=== PATIENT | female | born 1950 | race Caucasian/White ===

== ENCOUNTER 2018-11-10 11:10 | Outpatient (CLI) | payer MEDICARE, MEDICAID, SELFPAY ==
--- NOTE | 2018-11-10 06:00 | DI.RAD_ITS ---
EXAM: XR PAIN CLINIC LUMBAR SP 2V CLINICAL HISTORY: Lumbar Epidural Steroid Injection TECHNIQUE: 2D and realtime digital imaging was performed. COMPARISON: No exams were available for comparison FINDINGS: Images submitted from the pain clinic demonstrate needle positioning over the lower lumbar spine and proximal sacrum in connection with an epidural steroid injection. Please see Dr. Christopher's procedure rep ort for further information. IMPRESSION:
[2018-11-10 12:14] VITALS: BP 106/75; PULSE 69; RESP 20; TEMP 36.7; O2SAT 98
--- NOTE | 2018-11-10 12:48 | PDOC.PAIN_ITS ---
Pain Clinic Procedure Note Procedure Note Procedure Note: CAUDAL EPIDURAL STEROID WITH CATHETER INJECTION PROCEDURE NOTE COMMENTS: I did rev iew Ms. Hernandez's note and the most recent lumbar spine MRI . DX: Lumboscaral radiculopathy TONI BELLA has been referred to the [facility] for lumbar epidural steroid injection. Patient was greeted by the nurse who verified patients name and . Patient was then taken to the fluoroscopy suite. Patient was interviewed and the medical record reviewed. There were no medical, pharmacologic, radiographic, or other structural contraindications to attempting fluoroscopically guided lumbar epidural steroid injection. Risks and expected side effects as well as potential benefits of the procedure were reviewed and voiced concerns addressed. The patient consent form was signed and witnessed. Standard time-out procedure was performed. Patient was placed in the prone position on the fluoroscopy table and automated blood pressure cuff and pulse oximeter applied. The skin entry point for entering/approaching the epidural space at the sacral hiatus marked. Following thorough chlorhexadine preparation of the skin and draping and 1% lidocaine infiltration of the skin entry point and subcutaneous tissues, a 17 gauge Touhy needle was placed under fluoroscopic guidance and with loss of resistance technique into the epidural space. Needle tip placement and depth were aided and confirmed by fluoroscopy. There was no paresthesia or return of blood or CSF through the needle. An Arrow cath was thread to the L4 vertebral body and 1 cc's of Omnipaque 240 was injected with clear epidural spread confirmed with fluoroscopy. 80mg depomedrol was injected. There was not any unusual discomfort expressed. Vital signs were stable throughout the procedure and were as recorded in nursing records. Follow up plans and appointments were discussed.Post procedure instruction was given as documented in nursing records and having met discharge criteria and was discharged from the [facility]. COMMENTS: This procedure can be completed up to 3 times per 12 months if it is found to be effective.
[2018-11-10 12:55] VITALS: BP 141/82; PULSE 72; RESP 16; O2SAT 97
[2018-11-10] MEDS: Omnipaque 240 MG/ML 50 ML BTL IJ (12:56)
[2018-11-10] MEDS: methylPREDNISolone ACETATE 40 MG/ML VIAL IJ (12:56)
== END 2018-11-10 11:30 ==
PROVIDERS: PCP Family Medicine; Visit Provider Preventive Medicine Occupational Medicine
DX: M54.17 Radiculopathy, lumbosacral region (principal)
CPT/HCPCS: 62323; 72100; J1030; Q9967

== ENCOUNTER 2018-11-30 14:52 | Outpatient (CLI) | payer MEDICARE, MEDICAID, SELFPAY ==
--- NOTE | 2018-11-30 15:00 | DI.RAD_ITS ---
EXAM: XR CERVICAL SPINE COMP 4-5V INDICATION: neck pain, recent injury from overhead door,r/o Fx, M54.2 CERVICALGIA. COMPARISON: No exams were available for comparison TECHNIQUE: 2D digital imaging was performed. FINDINGS: Seven views were obtained. There are very prominent hypertrophic degenerative endplate changes at C4 -5 C5-6 and C6-7. Marked facet hypertrophic degenerative changes noted as well. Neural foramina ceci ear fairly well maintained as visualized. . IMPRESSION: Conclusion severe hypertrophic degenerative changes of predominantly lower cervical spine. No evidenc e of acute fracture
== END 2018-11-30 15:12 ==
PROVIDERS: PCP Family Medicine; Visit Provider Nurse Practitioner Family
DX: M54.2 Cervicalgia (principal); M50.321 Other cervical disc degeneration at C4-C5 level; M50.322 Other cervical disc degeneration at C5-C6 level
CPT/HCPCS: 72050

== ENCOUNTER 2019-01-12 09:33 | Outpatient (CLI) | payer MEDICARE, MEDICAID, SELFPAY ==
--- NOTE | 2019-01-12 06:00 | DI.RAD_ITS ---
EXAM: XR PAIN CLINIC CERVICAL SP 2V CLINICAL HISTORY: Dx: Cervical Spondylosis. TECHNIQUE: Fluoroscopy was provided for the referring physician for guidance with performing injecti on procedure. COMPARISON: No exams were available for comparison FINDINGS: Please see procedure note for details. FLUORO TIME: 102.5 seconds
[2019-01-12 10:46] VITALS: BP 127/72; PULSE 72; RESP 20; TEMP 36.9; O2SAT 97
--- NOTE | 2019-01-12 12:17 | PDOC.PAIN ---
Pain Clinic Procedure Note Procedure Note Procedure Note: CERVICAL MEDIAL BRANCH BLOCKS TONI BELLA has been referred to the [facility] for cervical medial branch blocks. COMMENTS: Ms Bella has left sided posterior headache and scalp sensitivity and pain down left side of her neck extending to her trapezius Patient was interviewed and the medical record reviewed. There were no medical, pharmacologic, radiographic or other structural contraindications to attempting fluoroscopically guided local anesthetic cervical medial branch blocks. Risks and expected side effects as well as potential benefit of the procedure were reviewed and voiced concerns addressed. The printed consent form was signed and witnessed. Standard time-out procedure was performed. Patient was placed in the left lateral decubitus position on the fluoroscopy table and automated blood pressure cuff and pulse oximeter applied. however, patient was not comfortable in this position and multiple planes of fluoroscopic images were taken without optimization of articular pillar. then patient was repositioned into prone position. left TON, C3, C4, C5 were identified with fluoroscopy and marked. Following thorough Chlorhexadine preparation of the skin and draping and 1% lidocaine infiltration of the skin entry points and subcutaneous tissues, a 25 gauge 3.5'' spinal needle was placed under fluoroscopic guidance down on to the target point for each respective segmental medial branch. Position was confirmed in A/P and lateral views with 0.25ml of omnipaque 240 injected at each level. This revealed appropriate spread and no vascular uptake. At each point 0.25ml 0.5% bupivicaine was injected. Vital signs were stable throughout the procedure and were as recorded in the doc flowsheet by the nursing staff. Follow up plans and appointments were discussed and patient was instructed to keep careful note of how the usual pain was modified by these injections. Specifically, the patient was asked to keep a pain diary for the next 24 hours using a numeric pain scale of 0-10 and report these results at the follow-up visit. Post procedure instruction was given as documented in the nursing documentation and having met discharge criteria, and was discharged from the [facility]. Based on the medial branches blocked today, if they patient has adequate relief and we are able to proceed to radiofrequency ablation, the treatment should result in the denervation of the left C2-3, C3-4, C4-5. We would expect to denervate a total of 3 facets during the radiofrequency ablation. COMMENTS: pre-procedure pain level was reported as 10 out of 10. Post-procedure pain level 3 out of 10. given patient's body habitus and difficult to visualize target on lateral decubitus position, would prefer prone position for future blocks and radiofrequency ablation Candie Drake MD Pain Management CC: Servando Young
[2019-01-12 12:27] VITALS: BP 146/93; PULSE 67; RESP 16; O2SAT 96
[2019-01-12] MEDS: Omnipaque 240 MG/ML 50 ML BTL IJ (12:28)
[2019-01-12] MEDS: Bupivacaine 0.5% Pres-Free 10 ML VIAL IJ (12:29)
== END 2019-01-12 09:53 ==
PROVIDERS: PCP Family Medicine; Visit Provider Internal Medicine
DX: M47.812 Spondylosis without myelopathy or radiculopathy, cervical region (principal)
CPT/HCPCS: 64490; 64491; 72040; Q9967

== ENCOUNTER 2019-04-13 08:17 | Outpatient (CLI) | payer MEDICARE, BC, MEDICAID, SELFPAY ==
[2019-04-13 08:23] VITALS: BP 119/79; PULSE 79; RESP 20; TEMP 36.5; O2SAT 99
--- NOTE | 2019-04-13 09:33 | DI.RAD_ITS ---
EXAM: XR PAIN CLINIC CERVICAL SP 2V CLINICAL HISTORY: Dx: Cervical spondylosis TECHNIQUE: Realtime digital imaging was performed. Fluoro time: 54.9 sec, 8.30 mGy COMPARISON: No exams were available for comparison FINDINGS: Fluoroscopy was utilized by Dr. Drake during the performance of a cervical medial branch block. Please refer to the procedure report for complete details.
[2019-04-13 09:36] VITALS: BP 134/84; PULSE 75; RESP 19; O2SAT 99
[2019-04-13] MEDS: Omnipaque 240 MG/ML 50 ML BTL IJ (09:53)
[2019-04-13] MEDS: Lidocaine 2% Pres-Free 5 ML VIAL IJ (09:53)
--- NOTE | 2019-04-13 09:54 | PDOC.PAIN ---
Pain Clinic Procedure Note Procedure Note Procedure Note: CERVICAL MEDIAL BRANCH BLOCKS TONI BELLA has been referred to the [facility] for cervical medial branch blocks. pre-operative diagnosis: cervical spondylosis post-operative diagnosis: same as above COMMENTS: patient is here for confirmatory left sided cervical medial branch nerve block. Her last procedure was cancelled due to vaginal bleeding. Patient was interviewed and the medical record reviewed. There were no medical, pharmacologic, radiographic or other structural contraindications to attempting fluoroscopically guided local anesthetic cervical medial branch blocks. Risks and expected side effects as well as potential benefit of the procedure were reviewed and voiced concerns addressed. The printed consent form was signed and witnessed. Standard time-out procedure was performed. Patient was placed in the prone position on the fluoroscopy table and automated blood pressure cuff and pulse oximeter applied. The skin entry points for approaching the anatomic target points of the segmental medial branches of left TON, C3, C4, C5 were identified with fluoroscopy and marked. Following thorough Chlorhexadine preparation of the skin and draping and 1% lidocaine infiltration of the skin entry points and subcutaneous tissues, a 25 gauge spinal needle was placed under fluoroscopic guidance down on to the target point for each respective segmental medial branch. Position was confirmed in A/P and leteral views with 0.25ml of omnipaque 240 injected at each level. This revealed appropriate spread and no vascular uptake. At each point 0.3ml 2% lidocaine was injected. Vital signs were stable throughout the procedure and were as recorded in the docflowsheet by the nursing staff. Follow up plans and appointments were discussed and patient was instructed to keep careful note of how the usual pain was modified by these injections. Specifically, the patient was asked to keep a pain diary for the next 24 hours using a numeric pain scale of 0-10 and report these results at the follow-up visit. Post procedure instruction was given as documented in the nursing documentation and having met discharge criteria, and was discharged from the [facility]. Based on the medial branches blocked today, if they patient has adequate relief and we are able to proceed to radiofrequency ablation, the treatment should result in the denervation of the left C2-3, C3-4, C4-5. We would expect to denervate a total of 3 facets during the radiofrequency ablation. COMMENTS: patient tolerated procedure well. she reported mild nausea immediatley after procedure was completed, her vital signs were monitored and remained stable. patient reported the prone positioning was putting too much pressure on her abdomen and she felt some baseline right flank pain which caused her to be nauseous. She denies dizziness, headache, lightheadedness. Her symptoms resolved without intervention. Candie Drake MD Pain Management CC: Servando Young
== END 2019-04-13 08:37 ==
PROVIDERS: PCP Family Medicine; Visit Provider Internal Medicine
DX: M47.812 Spondylosis without myelopathy or radiculopathy, cervical region (principal)
CPT/HCPCS: 64490; 64491; 64492; 72040; Q9967

== ENCOUNTER 2020-01-22 00:32 | Emergency (ER) | payer MEDICARE, MEDICAID, SELFPAY ==
[2020-01-22 00:35] VITALS: BP 154/73; PULSE 70; RESP 20; TEMP 36.7; O2SAT 100
--- NOTE | 2020-01-22 00:45 | RT.EKG_ITS ---
APPROVED REPORT Exam: Resting ECG Patient Location: E HR:57 bpm ECG Measurements Heart Rate 57 AXIS [place] 59 P 0 QRSd 95 QRS 0 QT 492 T 30 QTc 482 Conclusion Sinus bradycardia...rate< 60 Low voltage, precordial leads...precordial leads <1.0mV Nonspecific ST-T changes Normal [place] No STEMI
--- NOTE | 2020-01-22 00:46 | ED.GENADUL_ITS ---
Discharge Plan Disposition Patient Disposition: HOME Condition: Good Discharge Details Clinical Impression: Vomiting, Syncope, Hypomagnesemia Primary Care Provider: Servando Young ED Provider: Jw Craig Home Meds and New Rx's Prescriptions: Continued albuterol sulfate [Ventolin HFA] 90 mcg/actuation HFA aerosol inhaler 2 puff IH Q6H PRNRF: 0 Biofreeze aerosol 1 ea topical PRN PRNRF: 0 omeprazole 20 mg tablet,delayed release (DR/EC) 20 mg PO DAILY RF: 0 fluticasone propion-salmeterol [Advair Diskus] 250-50 mcg/dose blister with device 1 inh IH BID RF: 0 erythromycin 5 mg/gram (0.5 %) ointment 1 applic OP DAILY RF: 0 ketoconazole 2 % cream 1 applic TP BID RF: 0 fluticasone propionate [Flonase Allergy Relief] 50 mcg/actuation spray,suspension 1 spray DAINA DAILY RF: 0 Lantus U-100 Insulin 100 unit/mL solution 35 unit SC DAILY RF: 0 amlodipine [Norvasc] 5 mg tablet 5 mg PO DAILY RF: 0 zinc oxide-white petrolatum 15-49 % ointment 1 applic TP BID PRNRF: 0 simvastatin 40 MG tablet 40 mg PO DAILY RF: 0 metformin 1,000 MG tablet 1,000 mg PO BID RF: 0 nitroglycerin [Nitrostat] 0.4 MG tablet, sublingual 0.4 mg Sublingual PRN RF: 0 aspirin 81 MG tablet,chewable 81 mg PO DAILY RF: 0 nystatin [Nystop] 60 GM powder 60 gm Topical BID RF: 0 Centrum Silver 1 EACH tablet 1 ea PO DAILY RF: 0 vitamin E succinate 100 UNIT tablet 100 unit PO DAILY RF: 0 Metoprolol Succinate [Toprol Xl] 50 MG TAB.ER.24H 50 mg PO DAILY RF: 0 sertraline 100 MG tablet 200 mg PO DAILY RF: 0 acetaminophen 325 mg tablet 650 mg PO Q4H PRNRF: 0 tramadol 50 mg tablet 50 mg PO Q6H PRNRF: 0 tizanidine 2 mg capsule 2 mg PO Q8H PRNRF: 0 bupropion HCl 150 mg tablet extended release 24 hr 150 mg PO BID RF: 0 duloxetine [Cymbalta] 30 mg Capsule,Delayed Release(Dr/Ec) 30 mg PO RF: 0 pregabalin [Lyrica] 100 mg Capsule 100 RF: 0 Discharge Instructions Instructions: Syncope (ED), Hypomagnesemia (ED) Additional Instructions: I feels no syncope was related to your dry heaving and inability to catch her breath. Your EKG looks fine. Laboratory studies look fine other than magnesium which is likely low due to the diarrhea you had previously. CT scan of her abdomen shows no acute pathology. You may use the Zofran for recurrent nausea/vomiting. Stick with clear liquid bland diet for the rest of the weekend. Follow-up with primary care next week if not better. Return to ED for abdominal pain, chest pain, persistent vomiting, further syncope, difficulty breathing. Referrals: Servando Young [Primary Care Provider] - Medical Decision Making Patient presenting because of syncopal event that occurred tonight urine after dry heaving and having difficulty catching her breath. She has since recovered and after vomiting for EMS a few times feels much better. Her vital signs of good here. If anything she is hypertensive. Does not sound like orthostasis or dehydration but more likely related to a cough syncope type variant. Currently no shortness of breath and normal pulse ox. Bili appears to be benign. She has had multiple surgeries in the past. We will proceed with establishing IV and giving some fluids. Check laboratory studies, EKG, abdominal pelvic CT scan. Zofran for residual nausea. Patient's laboratory studies unremarkable other than anemia which actually has been present since 2010 as well as low magnesium at 1.3 likely related to the diarrhea she had. She received IV magnesium here. Other electrolytes and kidney function normal. White count normal. 2 sets of troponin negative. EKG is sinus bradycardia with nonspecific ST flattening but nothing acute. She has had no arrhythmias here. CT scan of the abdomen pelvis shows no acute pathology. Patient has been fine here. She has had no feeling of shortness of breath. The IV Zofran made her nausea better. Again, I think her syncope was related to dry heaving and not being able to catch her breath. It was described as short- lived. I do not feel she requires admission at this time. Will discharge her home with a few Zofran if needed. Otherwise clear liquid/bland diet. Follow-up with primary care next week if not better. Return to ED for further syncope, chest pain, persistent shortness of breath, vomiting. Lab Data Lab results reviewed: Yes I reviewed the patient's lab results. ECG Data Attestation: I personally reviewed and interpreted this ECG (s) as follows: Interpretation: see EKG HPI General Mode of arrival: EMS . Date/Time Provider Initiated Documentation: 01/22/20 00:39 . Limitations to Documentation: no limitations . Information obtained by: patient, RN notes reviewed and old records reviewed . HPI Narrative: Patient presents to ED with syncopal event from home. Patient reports diarrhea earlier this week which has subsequently resolved. Today she is had emesis and has not really been able to keep a whole lot down. She has a little bit of abdominal discomfort but nothing horrible. She had gone to bed and woke up dry heaving and gas pain severe. Family heard her and came in. She apparently flopped back into bed with a brief syncopal event. When EMS arrived she was awake and alert lying on the floor. There was no trauma or injury from the fall. She has had 2 or 3 episodes of emesis for EMS. She denies having chest pain. She is not short of breath currently. She denies fever. She denies cough. She has had no Covid exposure. She states that she feels pretty good right now. Related Data Home Medications Medication Instructions Recorded Confirmed Centrum Silver 1 ea PO DAILY 03/03/17 01/22/20 Metoprolol Succinate [Toprol Xl] 50 mg PO DAILY tab-cap 03/03/17 01/22/20 aspirin 81 mg PO DAILY tab-cap 03/03/17 01/22/20 metformin 1,000 mg PO BID tab-cap 03/03/17 01/22/20 nitroglycerin [Nitrostat] 0.4 mg SUBLINGUAL PRN 03/03/17 01/22/20 nystatin [Nystop] 60 gm TOPICAL BID 03/03/17 01/22/20 simvastatin 40 mg PO DAILY tab-cap 03/03/17 01/22/20 vitamin E succinate 100 unit PO DAILY 03/03/17 01/22/20 sertraline 200 mg PO DAILY tab-cap 03/05/17 01/22/20 Biofreeze 1 ea TOPICAL PRN PRN 04/23/18 01/22/20 acetaminophen 325 mg tablet 650 mg PO Q4H PRN tab-cap 04/23/18 01/22/20 albuterol sulfate 90 mcg/actuation 2 puff IH Q6H PRN gm 04/23/18 01/22/20 aerosol inhaler bupropion HCl 150 mg 24 hr tablet, 150 mg PO BID tab 04/23/18 01/22/20 extended release omeprazole 20 mg tablet,delayed 20 mg PO DAILY 04/23/18 01/22/20 release tizanidine 2 mg capsule 2 mg PO Q8H PRN cap 04/23/18 01/22/20 tramadol 50 mg tablet 50 mg PO Q6H PRN tab-cap 04/23/18 01/22/20 amlodipine 5 mg tablet 5 mg PO DAILY 09/02/18 01/22/20 erythromycin 5 mg/gram (0.5 %) eye 1 applic OP DAILY 09/02/18 01/22/20 ointment fluticasone 250 mcg-salmeterol 50 1 inh IH BID 09/02/18 01/22/20 mcg/dose blistr powdr for inhalation fluticasone propionate 50 1 spray DAINA DAILY 09/02/18 01/22/20 mcg/actuation nasal spray,suspension insulin glargine 100 unit/mL 35 unit SC DAILY ml 09/02/18 01/22/20 subcutaneous solution ketoconazole 2 % topical cream 1 applic TP BID 09/02/18 01/22/20 zinc oxide-white petrolatum 15 1 applic TP BID PRN 09/02/18 01/22/20 %-49 % topical ointment duloxetine [Cymbalta] 30 mg PO 01/22/20 pregabalin [Lyrica] 100 01/22/20 Allergies Allergy/AdvReac Type Severity Reaction Status Date / Time adhesive tape Allergy Intermediate RASH Unverified 04/13/19 08:23 Sulfa (Sulfonamide Allergy Mild Skin Rash Unverified 04/13/19 08:23 Antibiotics) aspirin AdvReac Intermediate Nausea Unverified 04/13/19 08:23 General Stated Complaint: Nausea/Vomit/Diar REGAN: 3 Review of Systems Narrative: 12/07 Review of Systems completed and is negative except as stated above in HPI (Systems reviewed: Const, Eyes, ENT, Resp, CV, GI, , MSK, Skin, Neuro) PFSH Medical History Anxiety Asthma Breast cancer CAD (coronary artery disease) Cataract Chronic pain Colonic polyp Constipation Depression Diabetes Hemorrhoid HTN (hypertension) Hypercholesterolemia Obesity Prurigo nodularis Sigmoid diverticulosis Surgical History Abdominal hysterectomy Appendectomy Bilateral salpingectomy with oophorectomy Biopsy of breast Cholecystectomy Colonoscopy - MAC Extraction of cataract PORT PLACEMENT port removal Tonsillectomy and adenoidectomy Family History Mother No problems noted. Father Diabetes Sister No problems noted. Sister No problems noted. Sister No problems noted. Brother No problems noted. Brother No problems noted. Son No problems noted. Son No problems noted. Daughter No problems noted. Daughter No problems noted. Maternal Aunt Ovarian cancer Social History Smoking/Tobacco Use Status: Former Tobacco Use Smoking risk assessment performed?: Yes Alcohol Intake: never Drug use: Never Substance use type: does not use Do you feel safe at home: Yes Do you feel safe in your relationship?: Yes Exam Narrative Exam Narrative: Const: Obese elderly female in NAD. HEENT: NC/AT. Normal facial exam. Eyes: Normal conjunctiva and sclera. Neck: Supple. Trachea midline. Lungs: Normal respiratory effort. Lungs are clear. Cor: RRR without murmur/gallop. Good radial pulses. GI: Soft. NT/ND. No guarding or rebound. Neuro: A+O x 3. Normal speech, mentation. Cranial nerves II - XII grossly intact. No gross motor or sensory deficit. Ext: Some bilateral lower extremity edema. No calf tenderness. Skin: Warm and dry without rash. Course Vital Signs Vital signs: Oxygen Delivery Method Room Air 01/22/20 00:35 Oxygen Flow Rate 0 01/22/20 00:35
--- NOTE | 2020-01-22 01:00 | DI.CT_ITS ---
EXAM: CT ABDOMEN PELVIS W INDICATION: vomiting/abd pain. COMPARISON: No exams were available for comparison TECHNIQUE: FINDINGS: CT examination of the abdomen and pelvis was performed with a bolus infusion of 125 cc of Omnipaque 3 50. Images obtained through the lung bases are unremarkable. The liver is unremarkable in appearance. Gallbladder has been surgically removed. No biliary dilatation seen.. Pancreas appears normal. Spleen is unremarkable in appearance. Adrenals appear normal. The kidneys are unremarkable with no evidence of hydronephrosis, nephrolithiasis, or renal mass.. Ur inary bladder unremarkable. Abdominal aorta is of normal diameter and no major vascular abnormality is seen. No abdominal wall hernia. No abdominal or pelvic adenopathy. Uterus is atrophic or absent. Appendix is not specifically visualized but there is no evidence of appendicitis. No evidence of div erticulitis or bowel obstruction. IMPRESSION: Negative CT examination of the abdomen and pelvis. RADIATION DOSE DELIVERED: 1,725.37mGy.cm Total DLP 1,725.37mGy.cm Total DLP
[2020-01-22 01:41] LABS: Abs Immature Grans 0.02 10^3/uL (0.0-0.06); Absolute Basophil Count 0.04 10^3/uL (0.0-0.2); Absolute Eosinophil Count 0.12 10^3/uL (0.0-0.7); Absolute Lymphocyte Count 2.61 10^3/uL (1.2-3.4); Absolute Monocyte Count 0.45 10^3/uL (0.1-0.8); Basophils % 0.6; Eosinophils % 1.8; HCT 33.5 % (36.0-46.0); HGB 10.6 g/dL (11.2-15.7); Immature Grans % 0.3; Lymphocytes % 39.9; MCH 28.6 pg (27.0-33.0); MCHC 31.6 % (32.0-36.0); MCV 90.5 fL (80-95); MPV 10.9 fL (8.0-11.0); Monocytes % 6.9; Neutrophils % 50.5; Nucleated RBC 0 %; Platelet Count 149 10^3/uL (130-400); RDW-SD 46.5 fL; WBC 6.54 10^3/uL (4.4-10.8)
[2020-01-22 02:17] LABS: ALT 18 U/L (14-59); AST 18 U/L (15-37); Alkaline Phosphatase 73 U/L (46-116); Anion Gap 13.7 mmol/L (3-11); BUN 18 mg/dL (7-18); Bilirubin, Total 0.3 mg/dL (0.2-1.0); CO2 28.3 mmol/L (21.0-32.0); Calcium 9.7 mg/dL (8.5-10.1); Estimated GFR 54.81 (mL/min/1.73m2); Glucose 181 mg/dL (74-106); Lipase 84 U/L (73-393); Magnesium 1.3 mg/dL (1.8-2.4)
[2020-01-22 02:18] LABS: Troponin I < 0.05 ng/mL (<0.06)
[2020-01-22 02:37] LABS: Chloride 103 mmol/L (98-107); Potassium 3.7 mmol/L (3.5-5.1); Sodium 139 mmol/L (136-145)
[2020-01-22] MEDS: Normal Saline Flush 10 ML SYR IVP (03:29)
[2020-01-22] MEDS: Omnipaque 350 MG/ML 50 ML BTL IJ (03:30)
[2020-01-22] MEDS: Normal Saline - Diluent 50 ML VIAL IV (03:30)
[2020-01-22] MEDS: Omnipaque 350 MG/ML 100 ML BTL IJ (03:31)
[2020-01-22] MEDS: MAGNESIUM SULFATE 2 GM/50 ML BAG IVPB (03:33)
--- NOTE | 2020-01-22 03:41 | DI.VRAD_ITS ---
PROCEDURE INFORMATION: Exam: CT Abdomen And Pelvis With Contrast Exam date and time: 01/22/2020 1:04 AM Age: 69 years old Clinical indication: Abdominal pain; Generalized; Prior surgery; Surgery type: ? Cyst/polyp TECHNIQUE: Imaging protocol: Computed tomography of the abdomen and pelvis with intravenous contrast. Radiation optimization: All CT scans at this facility use at least one of these dose optimization techniques: automated exposure control; mA and/or kV adjustment per patient size (includes targeted exams where dose is matched to clinical indication); or iterative reconstruction. Contrast material: [id number]; Contrast volume: 125 ml; Contrast route: INTRAVENOUS (IV); COMPARISON: No relevant prior studies available. FINDINGS: Liver: Normal. No mass. Gallbladder and bile ducts: Status post cholecystectomy. Pancreas: Normal. No ductal dilation. Spleen: Normal. No splenomegaly. Adrenal glands: Normal. No mass. Kidneys and ureters: Normal. No hydronephrosis. Stomach and bowel: Unremarkable. No obstruction. No mucosal thickening. Appendix: No evidence of appendicitis. Intraperitoneal space: Unremarkable. No free air. No significant fluid collection. Vasculature: Unremarkable. No abdominal aortic aneurysm. Lymph nodes: Unremarkable. No enlarged lymph nodes. Urinary bladder: Unremarkable as visualized. Reproductive: Status post hysterectomy. Bones/joints: Unremarkable. No acute fracture. Soft tissues: Unremarkable. IMPRESSION: No acute finding. Dictated and Authenticated by: Gualberto Molina MD. Ordering:MIGUEL Escalera MD
--- NOTE | 2020-01-22 04:45 | RT.EKG_ITS ---
APPROVED REPORT Exam: Resting ECG Patient Location: E HR:56 bpm ECG Measurements Heart Rate 56 AXIS AR 174 P -31 QRSd 92 QRS 2 QT 463 T 33 QTc 447 Conclusion Sinus bradycardia...rate< 60 Low voltage, precordial leads...precordial leads <1.0mV There are no significant changes compared to prior EKG performed on 01/22/2020 at 01:52.
[2020-01-22 05:26] LABS: Troponin I < 0.05 ng/mL (<0.06)
== END 2020-01-22 07:13 | disposition home or self-care (01) ==
PROVIDERS: Emergency Provider Emergency Medicine; PCP Family Medicine
DX: E83.42 Hypomagnesemia (principal); R55 Syncope and collapse; R11.2 Nausea with vomiting, unspecified; E11.9 Type 2 diabetes mellitus without complications; Z79.4 Long term (current) use of insulin; I10 Essential (primary) hypertension
CPT/HCPCS: 36415; 80053; 83690; 93005; 96365; 96366; 99285; 74177; 83735; 84484; 85025; 93010; J3490; Q9967

== ENCOUNTER 2020-11-05 20:02 | Observation (INO) | payer MEDICARE, MEDICAID, SELFPAY ==
[2020-11-05] VITALS (39 sets, daily range): BP systolic 115–146; BP diastolic 65–82; PULSE 59–79; RESP 13–25; TEMP 36.6; O2SAT 93–99
--- NOTE | 2020-11-05 19:45 | RT.EKG_ITS ---
APPROVED REPORT Exam: Resting ECG Reason for Exam: syncope Patient Location: E HR:70 bpm ECG Measurements Heart Rate 70 AXIS [place] 167 P 49 QRSd 86 QRS 4 QT 418 T 51 QTc 451 Conclusion Sinus rhythm...normal P axis, V-rate 60- 99 Low voltage, precordial leads...precordial leads <1.0mV Physician: no stemi
[2020-11-05 20:13] LABS: Abs Immature Grans 0.02 10^3/uL (0.0-0.06); Absolute Basophil Count 0.04 10^3/uL (0.0-0.2); Absolute Eosinophil Count 0.19 10^3/uL (0.0-0.7); Absolute Lymphocyte Count 2.68 10^3/uL (1.2-3.4); Absolute Monocyte Count 0.52 10^3/uL (0.1-0.8); Absolute Neutrophil Count 2.79 10^3/uL (1.2-6.7); Basophils % 0.6; HCT 33.3 % (36.0-46.0); HGB 10.6 g/dL (11.2-15.7); Immature Grans % 0.3; Lymphocytes % 42.9; MCH 28.3 pg (27.0-33.0); MCHC 31.8 % (32.0-36.0); MCV 88.8 fL (80-95); Monocytes % 8.3; Neutrophils % 44.9; Nucleated RBC 0 %; Platelet Count 176 10^3/uL (130-400); RBC 3.75 10^6/uL (3.93-5.22); RDW 14.2 % (11.7-14.6); RDW-SD 45.6 fL; WBC 6.24 10^3/uL (4.4-10.8)
--- NOTE | 2020-11-05 20:30 | DI.CT_ITS ---
Exam(s) CT CHEST PE CTA EXAM: CT CHEST PE CTA CLINICAL HISTORY: shortness of breath, chest pain. TECHNIQUE: Imaging Protocol: Axial CT angiography was performed with multi-slice acquisition and mu lti-planar and/or 3D reconstructions. CONTRAST MATERIAL: Intravenous: Omnipaque 350 Contrast volume:100 COMPARISON: CT CT ABDOMEN PELVIS W from 01/22/2020 FINDINGS: Pulmonary Arteries: Subsegmental thrombus right upper lobe artery. Segmental thrombus right middle a rtery. No left-sided emboli. Tracheobronchial tree: Patent where visualized. Mediastinum and Dali: No dominant adenopathy or fluid collection. Pulmonary parenchyma: Limited evaluation due to expiratory changes and mild respiratory motion. No consolidation or dominant measurable mass. Pleura: No effusion or pneumothorax. Heart: No evidence of right heart strain.. Mild coronary artery calcifications are seen. Aorta: Thoracic aorta non-dilated. Mild atherosclerotic changes. Upper abdomen: Status post cholecystectomy. Atrophic pancreas. Bones: Degenerative changes. IMPRESSION: Small right upper and middle lobe emboli. RADIATION DOSE DELIVERED: 703.45mGy.cm Total DLP DATA REPOSITORY: All CT scans at this facility are submitted to the National Radiology Data Registry (NRDR) Dose Index Registry (DIR) with the [employer] (A[employer]). RADIATION OPTIMIZATION: All CT scans at this facility use at least one of these dose optimization te chniques: automated exposure control; mA and/or kV adjustment per patient size (includes targeted exa ms where dose is matched to clinical indication); or iterative reconstruction.
[2020-11-05 20:34] LABS: ALT 14 U/L (14-59); AST 11 U/L (15-37); Albumin 3.7 g/dL (3.4-5.0); Alkaline Phosphatase 69 U/L (46-116); BUN 16 mg/dL (7-18); Bilirubin, Total 0.3 mg/dL (0.2-1.0); CREATININE 1.1 mg/dL (0.55-1.02); Calcium 9.2 mg/dL (8.5-10.1); Chloride 103 mmol/L (98-107); Estimated GFR 48.96 (mL/min/1.73m2); Glucose 224 mg/dL (74-106); NT-proBNP 270 pg/mL (<300); Potassium 4.1 mmol/L (3.5-5.1); Sodium 140 mmol/L (136-145); Total Protein 7.4 g/dL (6.4-8.2)
[2020-11-05 20:37] LABS: Troponin I < 0.05 ng/mL (<0.06)
--- NOTE | 2020-11-05 21:15 | ED.GENADUL_ITS ---
Discharge Plan Disposition Condition: Stable Discharge Details Chief Complaint: Chest Pain Admit Date/Time: 11/05/20 23:37 Admit Provider: Sylvain Bishop Attending Provider: Sylvain Bishop Primary Care Provider: Servando Young ED Provider: Reta Manning Discharge Instructions Activity:: Activity as Tolerated Equipment/Supplies:: No Equipment Needed Diet:: Carb Counting Discharge Orders Discharge Orders: Discharge Order (Routine); Ordered 11/06/20 Ordered By: Do Botello Discharge Data Discharge Date/Time-TO BE ENTERED AT DEPARTURE: 11/06/20 00:47 Medical Decision Making Patient is a DNR/DNI She does have a subsegmental and segmental pulmonary embolism In the presence of syncope and patient's comorbidities being at risk of sending the patient home greatly outweighs benefit and she is to be admitted overnight for observation Magnesium is also low, 1.0, this was documented with 2 g of mag, no EKG changes consistent with magnesium level PESSI score 111 Patient is chest pain-free she is alert, oriented, and of decisional capacity We will leave to the discretion of the admitting hospitalist as to whether or not to initiate Lovenox, heparin, or Eliquis No signs or symptoms of stroke or neurological pathology Denies recent flights, surgeries, long drives, denies prior history of pulmonary embolism or DVT Patient is agreeable to admission, Dr. Bishop, hospitalist will admit patient HPI General Mode of arrival: ambulatory . Date/Time Provider Initiated Documentation: 11/05/20 20:29 . Limitations to Documentation: no limitations . Information obtained by: patient . HPI Narrative: This 70-year-old female presents with report of chest pain, shortness of breath, and subsequent syncope. Patient states she has been very stressed that she might have Covid as her next-door neighbor who she has close contact with tested positive. Patient stat es that today she ate dinner and then was sitting down to have her nightly neb treatment when she developed some chest pain which intermittent for her and followed by shortness of breath. Patient states that she subsequently had loss of consciousness. She does not remember this event but it was reported by family that she lost consciousness for several seconds. There was no reported seizure-like activity. Patient denies any current chest pain or shortness of breath. She denies any fever or chills. She states that the chest pain usually occurs 3-4 times a week. She has been having intermittent chest pain all day. She denies any exertional component. She states she is been very anxious and does have pain which she attributes to anxiety. She states she did have a cardiac catheterization approximately a year ago that was within normal limits. She states that in back to her automobile radio repairer said that her catheterization looks great. Marijuana but not tobacco. She denies any calf pain or swelling or history of pulmonary embolism. She does have a remote history of breast cancer, she was told that she is in remission. She denies any calf pain or swelling, recent flights, surgeries, long drives. Related Data Home Medications Medication Instructions Recorded Confirmed Centrum Silver 1 ea PO DAILY 03/03/17 11/05/20 Metoprolol Succinate [Toprol Xl] 50 mg PO DAILY tab-cap 03/03/17 01/22/20 aspirin 81 mg PO DAILY tab-cap 03/03/17 11/05/20 metformin 1,000 mg PO BID tab-cap 03/03/17 11/05/20 nitroglycerin [Nitrostat] 0.4 mg SUBLINGUAL PRN 03/03/17 11/05/20 nystatin [Nystop] 60 gm TOPICAL BID 03/03/17 11/05/20 simvastatin 40 mg PO DAILY tab-cap 03/03/17 11/05/20 vitamin E succinate 100 unit PO DAILY 03/03/17 11/05/20 sertraline 200 mg PO DAILY tab-cap 03/05/17 11/05/20 Biofreeze 1 ea TOPICAL PRN PRN 04/23/18 01/22/20 acetaminophen 325 mg tablet 650 mg PO Q4H PRN tab-cap 04/23/18 11/05/20 albuterol sulfate 90 mcg/actuation 2 puff IH Q6H PRN gm 04/23/18 11/05/20 aerosol inhaler tizanidine 2 mg capsule 2 mg PO Q8H PRN cap 04/23/18 01/22/20 tramadol 50 mg tablet 50 mg PO Q6H PRN tab-cap 04/23/18 01/22/20 amlodipine 5 mg tablet 5 mg PO DAILY 09/02/18 11/05/20 erythromycin 5 mg/gram (0.5 %) eye 1 applic OP DAILY 09/02/18 11/05/20 ointment fluticasone 250 mcg-salmeterol 50 1 inh IH BID 09/02/18 11/05/20 mcg/dose blistr powdr for inhalation fluticasone propionate 50 1 spray DAINA DAILY 09/02/18 11/05/20 mcg/actuation nasal spray,suspension insulin glargine 100 unit/mL 35 unit SC DAILY ml 09/02/18 11/05/20 subcutaneous solution ketoconazole 2 % topical cream 1 applic TP BID 09/02/18 01/22/20 zinc oxide-white petrolatum 15 1 applic TP BID PRN 09/02/18 11/05/20 %-49 % topical ointment duloxetine [Cymbalta] 30 mg PO DAILY 01/22/20 11/05/20 pregabalin [Lyrica] 100 mg PO DAILY 01/22/20 11/05/20 colestipol 2 g PO BID 11/05/20 11/05/20 ferrous sulfate [FeroSul] 325 mg PO DAILY 11/05/20 11/05/20 apixaban [Eliquis] 5 mg PO BID #73 tab 11/06/20 magnesium oxide 800 mg PO BID #60 tab 11/06/20 omeprazole 20 mg PO BID@729,1999 #60 cap 11/06/20 oxycodone-acetaminophen 1 tab PO Q4H PRN PRN #20 tab 11/06/20 Previous Rx's Medication Instructions Recorded apixaban [Eliquis] 5 mg PO BID #73 tab 11/06/20 magnesium oxide 800 mg PO BID #60 tab 11/06/20 omeprazole 20 mg PO BID@729,1999 #60 cap 11/06/20 oxycodone-acetaminophen 1 tab PO Q4H PRN PRN #20 tab 11/06/20 Allergies Allergy/AdvReac Type Severity Reaction Status Date / Time adhesive tape Allergy Intermediate RASH Unverified 11/05/20 19:56 Sulfa (Sulfonamide Allergy Mild Skin Rash Unverified 11/05/20 19:56 Antibiotics) aspirin AdvReac Intermediate Nausea Unverified 11/05/20 19:56 General Stated Complaint: Chest Pain REGAN: 2 Review of Systems All systems reviewed & are unremarkable except as noted in HPI and below PFSH Medical History Anxiety Asthma Breast cancer CAD (coronary artery disease) Cataract Chronic pain Colonic polyp Constipation Depression Diabetes Hemorrhoid HTN (hypertension) Hypercholesterolemia Obesity Prurigo nodularis Sigmoid diverticulosis Surgical History Abdominal hysterectomy Appendectomy Bilateral salpingectomy with oophorectomy Biopsy of breast Cholecystectomy Colonoscopy - MAC Extraction of cataract PORT PLACEMENT port removal Tonsillectomy and adenoidectomy Family History Mother No problems noted. Father Diabetes Sister No problems noted. Sister No problems noted. Sister No problems noted. Brother No problems noted. Brother No problems noted. Son No problems noted. Son No problems noted. Daughter No problems noted. Daughter No problems noted. Maternal Aunt Ovarian cancer Social History Smoking/Tobacco Use Status: Former Tobacco Use Smoking risk assessment performed?: Yes Alcohol Intake: never Drug use: Never Substance use type: does not use Do you feel safe at home: Yes Do you feel safe in your relationship?: Yes Exam Const General: cooperative HENMT Other: Moist mucous membrane Eyes Pupils: PERRL Neck Other: No carotid bruit or pulsatile mass Chest Chest: normal inspection of the chest Other: No chest wall tenderness Distal pulses intact Resp Effort & Inspection: normal respiratory effort Auscultation: clear to auscultation bilaterally Cardio Rate: regular rate Rhythm: regular rhythm GI Other: No abdominal bruit or pulsatile mass Skin General skin exam: no rashes or lesions noted Neuro General: patient alert and patient oriented x3 Extrem Other: tenderness, 1+ edema to bilateral lower extremities, distal pulses intact Course Vital Signs Vital signs: Vital Signs Temperature 36.6 C 11/05/20 19:53 Pulse 79 11/05/20 19:53 Respiratory Rate 18 11/05/20 19:53 Blood Pressure 146/75 H 11/05/20 19:53 Pulse Oximetry 97 11/05/20 19:53 Temperature 36.6 C 11/05/20 19:53 Pulse 79 11/05/20 19:53 Respiratory Rate 18 11/05/20 19:53 Blood Pressure 146/75 H 11/05/20 19:53 Pulse Oximetry 97 11/05/20 19:53 Pain Level 5 11/05/20 19:53 Lab/Test Results Lab/Test Results: Laboratory Tests Range/Units 11/05/20 11/05/20 11/05/20 20:05 20:05 20:05 WBC (4.4-10.8) 10^3/uL 6.24 RBC (3.93-5.22) 10^6/uL 3.75 L Hgb (11.2-15.7) g/dL 10.6 L Hct (36.0-46.0) % 33.3 L MCV (80-95) fL 88.8 MCH (27.0-33.0) pg 28.3 MCHC (32.0-36.0) % 31.8 L RDW (11.7-14.6) % 14.2 Plt Count (130-400) 10^3/uL 176 MPV (8.0-11.0) fL 11.0 Immature Gran % 0.3 Neutrophils % 44.9 Lymphocytes % 42.9 Monocytes % 8.3 Eosinophils % 3.0 Basophils % 0.6 Nucleated RBC % % 0 Absolute Neutrophils (1.2-6.7) 10^3/uL 2.79 Absolute Lymphocytes (1.2-3.4) 10^3/uL 2.68 Absolute Monocytes (0.1-0.8) 10^3/uL 0.52 Absolute Eosinophils (0.0-0.7) 10^3/uL 0.19 Absolute Basophils (0.0-0.2) 10^3/uL 0.04 Sodium (136-145) mmol/L 140 Potassium (3.5-5.1) mmol/L 4.1 Chloride (98-107) mmol/L 103 Carbon Dioxide (21.0-32.0) mmol/L 28.0 Anion Gap (3-11) mmol/L 9.0 BUN (7-18) mg/dL 16 Creatinine (0.55-1.02) mg/dL 1.1 H Estimated GFR/1.73 m2 (mL/min/1.73m2) 48.96 Glucose (74-106) mg/dL 224 H Calcium (8.5-10.1) mg/dL 9.2 Magnesium (1.8-2.4) mg/dL 1.0 L Total Bilirubin (0.2-1.0) mg/dL 0.3 AST (15-37) U/L 11 L ALT (14-59) U/L 14 Alkaline Phosphatase (46-116) U/L 69 Troponin I (<0.06) ng/mL < 0.05 NT-Pro-B Natriuret Pep (<300) pg/mL 270 Total Protein (6.4-8.2) g/dL 7.4 Albumin (3.4-5.0) g/dL 3.7 Critical Care Time Critical Care Time Critical Care Time: Yes Total Critical Care Time: 40 Attestation: Anticoagulation, telemetry monitoring, magnesium supplementation, EKG, cardiac troponin, admission
[2020-11-05] MEDS: Omnipaque 350 MG/ML 100 ML BTL IJ (21:27)
[2020-11-05] MEDS: Normal Saline Flush 10 ML SYR IVP (21:48)
[2020-11-05] MEDS: MAGNESIUM SULFATE 2 GM/50 ML BAG IVPB (21:54)
[2020-11-05 22:06] LABS: Source Nasal/Nares
[2020-11-05 22:11] LABS: Bilirubin Negative (Negative); Blood Negative (Negative); Clarity Clear (Clear); Glucose Negative (Negative); Ketones Negative (Negative); Leukocyte Esterase Negative (Negative); Nitrite Negative (Negative); Specific Gravity <= 1.005 (1.005-1.025); Urobilinogen 0.2 EU/dL (Up TO 0.2)
--- NOTE | 2020-11-05 22:39 | DI.VRAD_ITS ---
PROCEDURE INFORMATION: Exam: CTA Chest With Contrast Exam date and time: 11/05/2020 8:31 PM Age: 70 years old Clinical indication: Other: Not specific; Patient HX: Shortness of breath, chest pain TECHNIQUE: Imaging protocol: Computed tomographic angiography of the chest with contrast. 3D rendering (Not supervised by radiologist): MIP and/or 3D reconstructed images were created by the technologist. Radiation optimization: All CT scans at this facility use at least one of these dose optimization techniques: automated exposure control; mA and/or kV adjustment per patient size (includes targeted exams where dose is matched to clinical indication); or iterative reconstruction. Contrast material: OMNIPAQUE 350; Contrast volume: 100 ml; Contrast route: INTRAVENOUS (IV); COMPARISON: CT ABDOMEN PELVIS W 01/22/2020 3:07 AM FINDINGS: Pulmonary arteries: There is a segmental pulmonary embolus in the right middle lobe. There is a subsegmental pulmonary embolus in the right upper lobe. Aorta: Unremarkable. Lungs: Mild bilateral dependent atelectasis. Mild interstitial prominence diffusely may represent edema. Mild bronchial wall thickening may represent bronchitis. Pleural spaces: Unremarkable. No pneumothorax. No pleural effusion. Heart: No evidence of heart strain. Lymph nodes: Unremarkable. No enlarged lymph nodes. Bones/joints: Unremarkable. No acute fracture. Soft tissues: Unremarkable. IMPRESSION: Low burden segmental and subsegmental pulmonary emboli on the right. Case discussed with at CLEMENT Manning 6:35 p.m. Dictated and Authenticated by: Patrice Morel MD. Ordering:FARZANA Mcduffie MD
[2020-11-05 22:56] LABS: COVID-19 PCR Negative (Negative)
--- NOTE | 2020-11-05 23:17 | W.PM.HP.N ---
Date of service: 11/05/20 Time of Service: 23:17 Assessment and Plan Assessment and plan (1) Pulmonary emboli: Status: Chronic Assessment and plan: PE, apparently unprovoked. Does have remote h/o breast CA, would probably be useful to do some screening for occult malignancy. In meantime will begin DOAC. As to syncopal-like event, will monitor for arrythmia (? possibly hypo mag related). Reviewed ADs, requests DNR. 1. PE: Eliquis 2. Syncope: tely 3. DM: usual meds plus SS coverage (states she is on ad ani diet, will not change this out) 4. Hypo mag: recheck in AM, resume usual supplements History of Present Illness History of Present Illness Chief Complaint: CP, SOB Narrative: 70 female reports few days, but especially the past day, of pleuritic CP and SOB. No calf pain or leg swelling. EMS summoned and she had a syncopal-like event in their presence. Per daughter (as relayed to ER) this lasted one minute; per EMS (as relayed to ER staff) this was momentary, just seconds. In any case there was no seizure-like activity. In ER evaluation of note for absence of fever, tachycardia and hypoxia, but CTA demonstrating PEs (RML segmental and RLL subsegmental). W/U also of note for Mg 1.0 (patient has chronic hypomagnesemia and is reportedly non-compliant with supplements). EKG WNL and trop neg. At present time patient states she feels fine except that she is somewhat anxious about a recent brief exposure to an individual who was subsequently found to be COVID +. She herself is fully vaccinated and the exposure consisted of a brief hug some 4 days ago. Here she is COVID neg. She is currently receiving 2 gm MgSO4. Review of Systems All systems reviewed & are unremarkable except as noted in HPI and below PFSH Medical History Anxiety Asthma Breast cancer CAD (coronary artery disease) Cataract Chronic pain Colonic polyp Constipation Depression Diabetes Hemorrhoid HTN (hypertension) Hypercholesterolemia Obesity Prurigo nodularis Sigmoid diverticulosis Surgical History Abdominal hysterectomy Appendectomy Bilateral salpingectomy with oophorectomy Biopsy of breast Cholecystectomy Colonoscopy - MAC Extraction of cataract PORT PLACEMENT port removal Tonsillectomy and adenoidectomy Family History Mother No problems noted. Father Diabetes Sister No problems noted. Sister No problems noted. Sister No problems noted. Brother No problems noted. Brother No problems noted. Son No problems noted. Son No problems noted. Daughter No problems noted. Daughter No problems noted. Maternal Aunt Ovarian cancer Social History Smoking/Tobacco Use Status: Former Tobacco Use Smoking risk assessment performed?: Yes Alcohol Intake: never Drug use: Never Substance use type: does not use Do you feel safe at home: Yes Do you feel safe in your relationship?: Yes Meds Allergies and Home Medications Allergies Allergy/AdvReac Type Severity Reaction Status Date / Time adhesive tape Allergy Intermediate RASH Unverified 11/05/20 19:56 Sulfa (Sulfonamide Allergy Mild Skin Rash Unverified 11/05/20 19:56 Antibiotics) aspirin AdvReac Intermediate Nausea Unverified 11/05/20 19:56 Home Medications Medication Instructions Recorded Confirmed Type Centrum Silver 1 ea PO DAILY 03/03/17 11/05/20 History Metoprolol Succinate [Toprol Xl] 50 mg PO DAILY tab-cap 03/03/17 01/22/20 History aspirin 81 mg PO DAILY tab-cap 03/03/17 11/05/20 History metformin 1,000 mg PO BID tab-cap 03/03/17 11/05/20 History nitroglycerin [Nitrostat] 0.4 mg SUBLINGUAL PRN 03/03/17 11/05/20 History nystatin [Nystop] 60 gm TOPICAL BID 03/03/17 11/05/20 History simvastatin 40 mg PO DAILY tab-cap 03/03/17 11/05/20 History vitamin E succinate 100 unit PO DAILY 03/03/17 11/05/20 History sertraline 200 mg PO DAILY tab-cap 03/05/17 11/05/20 History Biofreeze 1 ea TOPICAL PRN PRN 04/23/18 01/22/20 History acetaminophen 325 mg tablet 650 mg PO Q4H PRN tab-cap 04/23/18 11/05/20 History albuterol sulfate 90 mcg/actuation 2 puff IH Q6H PRN gm 04/23/18 11/05/20 History aerosol inhaler bupropion HCl 150 mg 24 hr tablet, 150 mg PO BID tab 04/23/18 01/22/20 History extended release omeprazole 20 mg tablet,delayed 20 mg PO DAILY 04/23/18 11/05/20 History release tizanidine 2 mg capsule 2 mg PO Q8H PRN cap 04/23/18 01/22/20 History tramadol 50 mg tablet 50 mg PO Q6H PRN tab-cap 04/23/18 01/22/20 History amlodipine 5 mg tablet 5 mg PO DAILY 09/02/18 11/05/20 History erythromycin 5 mg/gram (0.5 %) eye 1 applic OP DAILY 09/02/18 11/05/20 History ointment fluticasone 250 mcg-salmeterol 50 1 inh IH BID 09/02/18 11/05/20 History mcg/dose blistr powdr for inhalation fluticasone propionate 50 1 spray DAINA DAILY 09/02/18 11/05/20 History mcg/actuation nasal spray,suspension insulin glargine 100 unit/mL 35 unit SC DAILY ml 09/02/18 11/05/20 History subcutaneous solution ketoconazole 2 % topical cream 1 applic TP BID 09/02/18 01/22/20 History zinc oxide-white petrolatum 15 1 applic TP BID PRN 09/02/18 11/05/20 History %-49 % topical ointment duloxetine [Cymbalta] 30 mg PO DAILY 01/22/20 11/05/20 History pregabalin [Lyrica] 100 mg PO DAILY 01/22/20 11/05/20 History colestipol 2 g PO BID 11/05/20 11/05/20 History ferrous sulfate [FeroSul] 325 mg PO DAILY 11/05/20 11/05/20 History magnesium oxide 800 mg PO BID 11/05/20 11/05/20 History Exam Narrative Exam Narrative: 136/77, 70, 36.6, 24, 94% RA. HEENT atraumatic; neck supple; lungs clear; heart RRR w/o MRG; abdomen soft and NT; extremities w/o edema, calves NT, Marla's negative bilateral; neuro Ox3, lucid, moves all 4s Results Labs Result diagrams: 11/05/20 20:05 11/05/20 20:05 Labs: Laboratory Results - last 24 hr 11/05/20 11/05/20 11/05/20 20:05 20:05 20:05 WBC 6.24 RBC 3.75 L Hgb 10.6 L Hct 33.3 L MCV 88.8 MCH 28.3 MCHC 31.8 L RDW 14.2 Plt Count 176 MPV 11.0 Immature Gran % 0.3 Neutrophils % 44.9 Lymphocytes % 42.9 Monocytes % 8.3 Eosinophils % 3.0 Basophils % 0.6 Nucleated RBC % 0 Absolute Neutrophils 2.79 Absolute Lymphocytes 2.68 Absolute Monocytes 0.52 Absolute Eosinophils 0.19 Absolute Basophils 0.04 Sodium 140 Potassium 4.1 Chloride 103 Carbon Dioxide 28.0 Anion Gap 9.0 BUN 16 Creatinine 1.1 H Estimated GFR/1.73 m2 48.96 Glucose 224 H Calcium 9.2 Magnesium 1.0 L Total Bilirubin 0.3 AST 11 L ALT 14 Alkaline Phosphatase 69 Troponin I < 0.05 NT-Pro-B Natriuret Pep 270 Total Protein 7.4 Albumin 3.7 Urine Color Urine Clarity Urine pH Ur Specific [place] Urine Protein Urine Ketones Urine Blood Urine Nitrite Urine Bilirubin Urine Urobilinogen Ur Leukocyte Esterase Urine Glucose COVID-19 Source SARS-CoV-2 (PCR) 11/05/20 11/05/20 20:10 22:05 WBC RBC Hgb Hct MCV MCH MCHC RDW Plt Count MPV Immature Gran % Neutrophils % Lymphocytes % Monocytes % Eosinophils % Basophils % Nucleated RBC % Absolute Neutrophils Absolute Lymphocytes Absolute Monocytes Absolute Eosinophils Absolute Basophils Sodium Potassium Chloride Carbon Dioxide Anion Gap BUN Creatinine Estimated GFR/1.73 m2 Glucose Calcium Magnesium Total Bilirubin AST ALT Alkaline Phosphatase Troponin I NT-Pro-B Natriuret Pep Total Protein Albumin Urine Color Yellow Urine Clarity Clear Urine pH 6.0 Ur Specific [place] <= 1.005 Urine Protein Negative Urine Ketones Negative Urine Blood Negative Urine Nitrite Negative Urine Bilirubin Negative Urine Urobilinogen 0.2 Ur Leukocyte Esterase Negative Urine Glucose Negative COVID-19 Source Nasal/Nares SARS-CoV-2 (PCR) Negative Last Vital Signs Temp 36.6 C 11/05/20 19:53 Pulse 70 11/05/20 22:31 Resp 24 11/05/20 22:31 BP 136/77 11/05/20 22:31 Pulse Ox 94 11/05/20 22:31
[2020-11-06] VITALS (11 sets, daily range): BP systolic 99–132; BP diastolic 57–92; PULSE 64–80; RESP 16–28; TEMP 35.3–36.8; O2SAT 93–98
--- NOTE | 2020-11-06 | DI.US_ITS ---
APPROVED REPORT EXAM: Comprehensive 2D, Doppler, and color-flow Echocardiogram Patient Location: In-Patient Room/Bed: 215 Computational Biologist: Carly Cage RDCS (AE) Indications: PE, Chest pain, SOB Other Information Study Quality: Fair. Technically limited study due to body habitus, inability to position patient. Conclusion Left Ventricle : The left ventricle is normal size. The left ventricular systolic function is normal. The left ventricular ejection fraction is within the normal range. Mild concentric left ventricular hypertrophy. There is normal LV segmental wall motion. The left ventricular diastolic function is nor mal. LVEF is 55%. Right Ventricle : Right ventricle is not well visualized. Right ventricular systolic function could n ot be assessed. Atria : The left atrium size is normal. Right atrium is not well visualized. Mitral Valve : Mild mitral annular calcification. Trace mitral regurgitation. No evidence of mitral v alve stenosis. Great Vessels : The aortic root is normal in size. The ascending aorta is mildly dilated. Aortic arch is not well visualized. IVC is normal in size and collapses >50% with inspiration. Please see remainder of study for further details. Wall motion Left Ventricle The left ventricle is normal size. The left ventricular systolic function is normal. The left ventric ular ejection fraction is within the normal range. Mild concentric left ventricular hypertrophy. Ther e is normal LV segmental wall motion. The left ventricular diastolic function is normal. There is no ventricular septal defect visualized. LVEF is 55%. Right Ventricle Right ventricle is not well visualized. Right ventricular systolic function could not be assessed. Atria The left atrium size is normal. Right atrium is not well visualized. The interatrial septum is intact with no evidence for an atrial septal defect. Aortic Valve The Aortic valve is sclerotic. Aortic valve is trileaflet. There is no aortic valvular stenosis. No a ortic regurgitation is present. Mitral Valve Mild mitral annular calcification. No evidence of mitral valve stenosis. Trace mitral regurgitation. Tricuspid Valve Tricuspid valve is grossly normal in structure and function. There is no tricuspid valve stenosis. Tr km tricuspid regurgitation. Unable to assess PA pressure. Pulmonic Valve Pulmonic valve is grossly normal in structure. There is no pulmonic valvular stenosis. There is no pu lmonic valvular regurgitation. Great Vessels The aortic root is normal in size. The ascending aorta is mildly dilated. Aortic arch is not well vis ualized. IVC is normal in size and collapses >50% with inspiration. Pericardium There is no pericardial effusion. 2D Dimensions IVSD d PLAX 1.15 cm F: 0.6-1.0 LV Vol A2C d MOD 69.5 mL LVPW d PLAX 1.18 cm F: 0.6 - 1.0 LV Vol A4C d MOD 70.8 mL LVID d PLAX 4.08 cm F: 3.8 - 5.2 LA vol/ BSA A4C s A-L 14.9 mL/m2 LVDs 2.95 cm F: 2.2 - 3.5 LA Area A4C s MOD 13.77 cm2 Ao Root d 2.73 cm F: 2.7 - 3.3 LV EF A4C MOD 55.5 % Ao Asc Diam d 3.23 cm F: 2.3 - 3.1 LV EF A2C MOD 56.1 % LV EF Teichholz 54.2 % LV EF Biplane MOD 55.2 % LVEF (Bradley's) 55.17 % F: 54 - 74 SV 39.19 mL LV Volume 52.47 mL F: 46 - 106 SV Index 18.70 mL/m2 LV Volume Index 25.10 mL/m2 F: 29 - 61 LV Vol Biplane MOD 71.0 mL FS 27.70 % LV Diastology MV E' medial 0.062 (>0.07 m/s) E/A Ratio 0.7 LV E/e MED 11.15 (<14) MV E Vmax 0.69 (0.4-1.3 m/s) MV E' lateral 0.082 (>0.1 m/s) MV A Vmax 1.00 (0.4-1.3 m/s) LV E/e LAT 8.35 (<14) MV E/A Ratio 0.67 MV E/E' medial 11.19 MV E/E' lateral 8.39 Aortic Valve LVOT Area 3.07 cm2 AoV Area Vmax 1.53 cm2 LVOT Vmax 0.92 m/s AoV Area/ BSA (Vmax) 0.73 cm2/m2 LVOT Mean Sawyer. 0.68 m/s FELIBERTO Mean Sawyer. 1.59 cm2 LVOT Peak Grad 3.4 mmHg FELIBERTO Mean Sawyer. Index 0.76 cm2/m2 LVOT Mean Grad 2.1 mmHg LVOT VTI 0.184 m LVOT Diam s 1.95 cm AoV Vmax 1.85 m/s Velocity Ratio 0.49 AoV Mean Sawyer. 1.32 m/s AoV Peak Grad 13.7 mmHg LVOT SV 56.43 mL AoV Mean Grad 7.8 mmHg AoV VTI 0.349 m AoV Area VTI 1.62 cm2 AoV Area/ BSA (VTI) 0.77 cm/m2 Mitral Valve MV DT 435 (160-240 msec) MV PHT 126 msec MV Area PHT 1.74 cm2 Pulmonary Valve PV Vmax 1.13 (0.5-1.5 m/s) RVOT Peak Gr. 1.38 mmHg PV Peak Grad 5.1 mmHg RVOT Mean Gr. 0.60 mmHg PV Mean Grad 3.5 mmHg RVOT VTI 0.104 m PV VTI 0.214 m RVOT Vmax 0.59 m/s
[2020-11-06] MEDS: Melatonin 3 MG TAB PO (01:49)
[2020-11-06] MEDS: Acetaminophen 325 MG TAB 650 MG PO (01:49)
[2020-11-06] MEDS: Apixaban 5 MG TAB 10 MG PO ×2 (01:50→08:51)
[2020-11-06 07:35] LABS: Magnesium 1.6 mg/dL (1.8-2.4)
[2020-11-06] MEDS: amLODIPine 5 MG TAB PO (08:50)
[2020-11-06] MEDS: Sertraline 50 MG TAB 200 MG PO (08:50)
[2020-11-06] MEDS: DULoxetine 30 MG CAP PO (08:50)
[2020-11-06] MEDS: Magnesium Oxide 400 MG TAB 800 MG PO (08:50)
[2020-11-06] MEDS: Omeprazole 20 MG CAPCR PO (08:50)
[2020-11-06] MEDS: metFORMIN 500 MG TAB 1000 MG PO ×2 (08:50→18:03)
[2020-11-06] MEDS: Simvastatin 40 MG TAB PO (08:50)
[2020-11-06] MEDS: Pregabalin 100 MG CAP PO (08:50)
[2020-11-06] MEDS: Colestipol 1 GM TAB 2 GM PO (08:50)
[2020-11-06] MEDS: Insulin Aspart 300 UNITS/3 ML PEN SC ×2 (08:51→12:08)
[2020-11-06] MEDS: Insulin Glargine 300 UNITS/3 ML PEN 35 UNITS SC (08:52)
--- NOTE | 2020-11-06 08:58 | PDOC.CMIN ---
- If Service Date Differs Date of service: 11/06/20 Time of Service: 08:58 Care Management Initial Assess REASON FOR HOSPITALIZATION:: Pulmonary Emboli PAST MEDICAL HISTORY/PAST SURGICAL HISTORY:: Medical History . Anxiety. Asthma. Breast cancer. CAD (coronary artery disease). Cataract. Chronic pain. Colonic polyp. Constipation. Depression. Diabetes. Hemorrhoid. HTN (hypertension). Hypercholesterolemia. Obesity. Prurigo nodularis. Sigmoid diverticulosis. Surgical History . Abdominal hysterectomy. Appendectomy. Bilateral salpingectomy with oophorectomy. Biopsy of breast. Cholecystectomy. Colonoscopy - MAC. Extraction of cataract. PORT PLACEMENT. port removal. Tonsillectomy and adenoidectomy PREVIOUS FUNCTIONAL STATUS/SOCIAL/FAMILY SUPPORTS:: Enedelia shares that she is disabled and lives with her daughter Minna in [facility]. Minna is her caregiver. Enedelia reports that she is independent in her ADL's but goes between a cane and walker to ambulate. She has a HX of hip and back pain which limits her activities. Minna does not own a car herself but arranges her needed transporation with family and friends. CURRENT FUNCTIONAL STATUS:: CM spoke with Enedelia over the phone due to her covid-19 diagnosis. Enedelia reports that she is not sure about going home today because she developed chest pain and increased sob about an hour ago. This has been reported to her provider and nurse and she is waiting to see if milk of magnesia makes a difference. She shares that she has a history of esophogeal issues. CM will continue to follow discharge planning. ADVANCE DIRECTIVES:: On file, [facility] is Minna Rodriguez Has patient been provided with info about the portal/API?: Yes Did the patient sign up for the portal?: No CODE STATUS:: DNR/DNI INSURANCE COVERAGE / FINANCIAL ISSUES:: BC. Advantage (MCR Replacement). Medicaid CURRENT HOME/COMMUNITY SERVICES/EQUIPMENT:: Walker. Cane. Daughter Minna is her caregiver PRIMARY CARE PHYSICIAN:: Servando Young POTENTIAL DISCHARGE NEEDS:: Find out if Chantale is approved by her insurance PATIENT/FAMILY EDUCATION NEEDS:: Review discharge instuctions and plan of care. ask me three. TRANSPORTATION:: Via private vehicle with family PLAN:: Discharge home with no new services on Eliquis via private vehicle with family. Follow up with community providers.
[2020-11-06] MEDS: MAGNESIUM SULFATE 4 GM/100 ML BAG IVPB (09:28)
[2020-11-06] MEDS: Budesonide/Formoterol 160/4.5 6 GM 60 PUFF INH IH (09:34)
[2020-11-06] MEDS: oxyCODONE 5 mg/Acetaminophen 325 mg TAB 1 TAB PO (14:51)
--- NOTE | 2020-11-06 15:00 | RT.EKG_ITS ---
APPROVED REPORT Exam: Resting ECG Reason for Exam: ? sinus irreg Patient Location: I HR:68 bpm ECG Measurements Heart Rate 68 AXIS MA 161 P -73 QRSd 95 QRS 0 QT 436 T 34 QTc 466 Conclusion Sinus or ectopic atrial rhythm...P axis (-45,135)
--- NOTE | 2020-11-06 15:11 | DSE_ITS ---
Date of service: 11/06/20 Time of Service: 15:11 DS: Diagnosis Discharge Diagnosis (1) Pulmonary emboli: Start date: 11/06/20 Start time: 15:11 Status: Chronic Asessment and Plan: Found to have PE by Chest CT small right upper and middle lobe emboli, this is her second PE, She should follow up with hematology and will now need life long anticoagulation. she is not requiring any oxygen. she does endorse some pain. No SOB. Will discharge on eliquis 10 mg BID x 7 days then 5 mg BID Recommend follow up with PCP this week and hematology Oxycodone for pain Will increase omeprazole to BID given that she eliquis. above discussed with dr. Larsen Discharge Plan Disposition Patient Disposition: HOME Condition: Stable Discharge Details Reason For Visit: PE Admit Date/Time: 11/05/20 23:37 Admit Provider: Sylvain Bishop Attending Provider: Sylvain Bishop Primary Care Provider: Servando Young Hospital Course Hospital Course: 70 female reports few days, but especially the past day, of pleuritic CP and SOB. No calf pain or leg swelling. EMS summoned and she had a syncopal-like event in their presence. Per daughter (as relayed to ER) this lasted one minute; per EMS (as relayed to ER staff) this was momentary, just seconds. In any case there was no seizure-like activity. In ER evaluation of note for absence of fever, tachycardia and hypoxia, but CTA demonstrating PEs (RML segmental and RLL subsegmental). W/U also of note for Mg 1.0 (patient has chronic hypomagnesemia and is reportedly non-compliant with supplements). EKG WNL and trop neg. She was asked to be admitted to m/s for further evaluation. She did require mag for low mag level therefore will increase mag to 800 BID and defer to pcp to monitor labs and titrate down if needed. She is doing well. no requiring oxygen. She is having some pain. Will give oxycodone for pain. Oxygen level maintains above 92%. She is not having any SOB. She is on eliquis this is her second PE, therefore she will need lifelong anticoagulation. Echo did not show any heart strain. Recommend she follow up with hematology given this is her second PE. Follow up with PCP this week. Home Meds and New Rx's Prescriptions: New Eliquis 5 mg tablet 5 mg PO BID Qty: 73 RF: 0 oxycodone-acetaminophen 5-325 mg Tablet 1 tab PO Q4H PRN PRNQty: 20 RF: 0 magnesium oxide 400 mg (241.3 mg magnesium) Tablet 800 mg PO BID Qty: 60 RF: 0 omeprazole 20 mg Capsule,Delayed Release(Dr/Ec) 20 mg PO BID@07,1999 Qty: 60 RF: 0 Continued albuterol sulfate [Ventolin HFA] 90 mcg/actuation HFA aerosol inhaler 2 puff IH Q6H PRNRF: 0 Biofreeze aerosol 1 ea topical PRN PRNRF: 0 fluticasone propion-salmeterol [Advair Diskus] 250-50 mcg/dose blister with device 1 inh IH BID RF: 0 erythromycin 5 mg/gram (0.5 %) ointment 1 applic OP DAILY RF: 0 ketoconazole 2 % cream 1 applic TP BID RF: 0 fluticasone propionate [Flonase Allergy Relief] 50 mcg/actuation spray,suspension 1 spray DAINA DAILY RF: 0 Lantus U-100 Insulin 100 unit/mL solution 35 unit SC DAILY RF: 0 amlodipine [Norvasc] 5 mg tablet 5 mg PO DAILY RF: 0 zinc oxide-white petrolatum 15-49 % ointment 1 applic TP BID PRNRF: 0 simvastatin 40 MG tablet 40 mg PO DAILY RF: 0 metformin 1,000 MG tablet 1,000 mg PO BID RF: 0 nitroglycerin [Nitrostat] 0.4 MG tablet, sublingual 0.4 mg Sublingual PRN RF: 0 aspirin 81 MG tablet,chewable 81 mg PO DAILY RF: 0 nystatin [Nystop] 60 GM powder 60 gm Topical BID RF: 0 Centrum Silver 1 EACH tablet 1 ea PO DAILY RF: 0 vitamin E succinate 100 UNIT tablet 100 unit PO DAILY RF: 0 Metoprolol Succinate [Toprol Xl] 50 MG TAB.ER.24H 50 mg PO DAILY RF: 0 sertraline 100 MG tablet 200 mg PO DAILY RF: 0 acetaminophen 325 mg tablet 650 mg PO Q4H PRNRF: 0 tramadol 50 mg tablet 50 mg PO Q6H PRNRF: 0 tizanidine 2 mg capsule 2 mg PO Q8H PRNRF: 0 duloxetine [Cymbalta] 30 mg Capsule,Delayed Release(Dr/Ec) 30 mg PO DAILY RF: 0 pregabalin [Lyrica] 100 mg Capsule 100 mg PO DAILY RF: 0 ferrous sulfate [FeroSul] 325 mg (65 mg iron) Tablet 325 mg PO DAILY RF: 0 colestipol 1 gram Tablet 2 g PO BID RF: 0 Discontinued omeprazole 20 mg tablet,delayed release (DR/EC) 20 mg PO DAILY RF: 0 bupropion HCl 150 mg tablet extended release 24 hr 150 mg PO BID RF: 0 magnesium oxide 400 mg magnesium Tablet 800 mg PO BID RF: 0 Discharge Instructions Instructions: Apixaban (By mouth), Pulmonary Embolism (DC), Hypomagnesemia (DC) Additional Instructions: Follow up with your PCP this week 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 will defer to PCP for this referral Take eliquis 10 mg twice a day for 6 more days than switch to 5 mg twice a day take pain medication as needed for chest pain this is normal pain with a PE, your echo was normal and your EKG was normal Activity:: Activity as Tolerated Equipment/Supplies:: No Equipment Needed Diet:: Carb Counting Discharge Orders Discharge Orders: Discharge Order (Routine); Ordered 11/06/20 Ordered By: Do Botello DS: Summary Time Spent with Patient providing and/or coordinating discharge services: Greater than 30 minutes Status at Discharge Functional status at discharge: independent ambulation Overall status at discharge: patient is progressing back to baseline Mental Status: mental status grossly normal Speech and Movement: speech and movement normal Mood: congruent mood Affect: normal affect Exam Narrative Exam Narrative: RA. HEENT atraumatic; neck supple; lungs clear; heart RRR w/o MRG; abdomen soft and NT; extremities w/o edema, calves NT, Marla's negative bi lateral; neuro Ox3, lucid, moves all 4s Psych Mental Status: mental status grossly normal Speech and Movement: speech and movement normal Mood: congruent mood Affect: normal affect DS: Data Vitals/I&O Vitals and I&O: Vital Signs Temperature 36.8 C 11/06/20 14:13 Temperature Source Tympanic 11/06/20 14:13 Pulse 69 11/06/20 14:13 Pulse Rhythm Regular 11/06/20 09:45 Pulse 64 11/06/20 00:10 Respiratory Rate 16 11/06/20 14:13 Respiratory Effort Non-Labored 11/06/20 09:45 Respiratory Depth Normal 11/06/20 09:45 Respiratory Pattern Normal 11/06/20 09:45 Blood Pressure 102/60 11/06/20 14:13 Blood Pressure Mean 86 11/06/20 00:01 Pulse Oximetry 93 11/06/20 14:13 Oxygen Delivery Method Room Air 11/06/20 14:13 Oxygen Flow Rate 0 11/06/20 14:13 Pain Level 6 11/06/20 14:51 Comment 11/06/20 02:40 Intake & Output 11/05/20 11/06/20 11/06/20 23:59 11:59 23:59 Intake Total 50 / 50 Balance 50 / 50 Weight 104.1 kg Intake: IV 50 / 50 Other: Urine Appearance Clear Comment pt incontinent of large amounts of urine. Data Completed and Pending Completed studies during hospitalization [Text1]: : 1950Age: 70 Exam(s) a CT:CT chest PE CTA Exam(s) CT CHEST PE CTA EXAM: CT CHEST PE CTA CLINICAL HISTORY: shortness of breath, chest pain. TECHNIQUE: Imaging Protocol: Axial CT angiography was performed with multi- slice acquisition and multi-planar and/or 3D reconstructions. CONTRAST MATERIAL: Intravenous: Omnipaque 350 Contrast volume:100 COMPARISON: CT CT ABDOMEN PELVIS W from 01/22/2020 FINDINGS: Pulmonary Arteries: Subsegmental thrombus right upper lobe artery. Segmental thrombus right middle artery. No left-sided emboli. Tracheobronchial tree: Patent where visualized. Mediastinum and Dali: No dominant adenopathy or fluid collection. Pulmonary parenchyma: Limited evaluation due to expiratory changes and mild respiratory motion. No consolidation or dominant measurable mass. Pleura: No effusion or pneumothorax. Heart: No evidence of right heart strain.. Mild coronary artery calcifications are seen. Aorta: Thoracic aorta non-dilated. Mild atherosclerotic changes. Upper abdomen: Status post cholecystectomy. Atrophic pancreas. Bones: Degenerative changes. IMPRESSION: Small right upper and middle lobe emboli. : 1950Age: 70 Exam(s) PROCEDURE INFORMATION: Exam: CTA Chest With Contrast Exam date and time: 11/05/2020 8:31 PM Age: 70 years old Clinical indication: Other: Not specific; Patient HX: Shortness of breath, chest pain TECHNIQUE: Imaging protocol: Computed tomographic angiography of the chest with contrast. 3D rendering (Not supervised by radiologist): MIP and/or 3D reconstructed images were created by the technologist. Radiation optimization: All CT scans at this facility use at least one of these dose optimization techniques: automated exposure control; mA and/or kV adjustment per patient size (includes targeted exams where dose is matched to clinical indication); or iterative reconstruction. Contrast material: OMNIPAQUE 350; Contrast volume: 100 ml; Contrast route: INTRAVENOUS (IV); COMPARISON: CT ABDOMEN PELVIS W 01/22/2020 3:07 AM FINDINGS: Pulmonary arteries: There is a segmental pulmonary embolus in the right middle lobe. There is a subsegmental pulmonary embolus in the right upper lobe. Aorta: Unremarkable. Lungs: Mild bilateral dependent atelectasis. Mild interstitial prominence diffusely may represent edema. Mild bronchial wall thickening may represent bronchitis. Pleural spaces: Unremarkable. No pneumothorax. No pleural effusion. Heart: No evidence of heart strain. Lymph nodes: Unremarkable. No enlarged lymph nodes. Bones/joints: Unremarkable. No acute fracture. Soft tissues: Unremarkable. IMPRESSION: Low burden segmental and subsegmental pulmonary emboli on the right. Conclusion Left Ventricle : The left ventricle is normal size. The left ventricular systolic function is normal. The left ventricular ejection fraction is within the normal range. Mild concentric left ventricular hypertrophy. There is normal LV segmental wall motion. The left ventricular diastolic function is normal. LVEF is 55%. Right Ventricle : Right ventricle is not well visualized. Right ventricular systolic function could not be assessed. Atria : The left atrium size is normal. Right atrium is not well visualized. Mitral Valve : Mild mitral annular calcification. Trace mitral regurgitation. No evidence of mitral valve stenosis. Great Vessels : The aortic root is normal in size. The ascending aorta is mildly dilated. Aortic arch is not well visualized. IVC is normal in size and collapses >50% with inspiration. Labs on day of discharge: Labs from last 24 hours 11/06/20 11/05/20 11/05/20 06:43 22:05 20:10 WBC RBC Hgb Hct MCV MCH MCHC RDW Plt Count MPV Immature Gran % Neutrophils % Lymphocytes % Monocytes % Eosinophils % Basophils % Nucleated RBC % Absolute Neutrophils Absolute Lymphocytes Absolute Monocytes Absolute Eosinophils Absolute Basophils Sodium Potassium Chloride Carbon Dioxide Anion Gap BUN Creatinine Estimated GFR/1.73 m2 Glucose Calcium Magnesium 1.6 L Total Bilirubin AST ALT Alkaline Phosphatase Troponin I NT-Pro-B Natriuret Pep Total Protein Albumin Urine Color Yellow Urine Clarity Clear Urine pH 6.0 Ur Specific [place] <= 1.005 Urine Protein Negative Urine Ketones Negative Urine Blood Negative Urine Nitrite Negative Urine Bilirubin Negative Urine Urobilinogen 0.2 Ur Leukocyte Esterase Negative Urine Glucose Negative COVID-19 Source Nasal/Nares SARS-CoV-2 (PCR) Negative 11/05/20 11/05/20 11/05/20 20:05 20:05 20:05 WBC 6.24 RBC 3.75 L Hgb 10.6 L Hct 33.3 L MCV 88.8 MCH 28.3 MCHC 31.8 L RDW 14.2 Plt Count 176 MPV 11.0 Immature Gran % 0.3 Neutrophils % 44.9 Lymphocytes % 42.9 Monocytes % 8.3 Eosinophils % 3.0 Basophils % 0.6 Nucleated RBC % 0 Absolute Neutrophils 2.79 Absolute Lymphocytes 2.68 Absolute Monocytes 0.52 Absolute Eosinophils 0.19 Absolute Basophils 0.04 Sodium 140 Potassium 4.1 Chloride 103 Carbon Dioxide 28.0 Anion Gap 9.0 BUN 16 Creatinine 1.1 H Estimated GFR/1.73 m2 48.96 Glucose 224 H Calcium 9.2 Magnesium 1.0 L Total Bilirubin 0.3 AST 11 L ALT 14 Alkaline Phosphatase 69 Troponin I < 0.05 NT-Pro-B Natriuret Pep 270 Total Protein 7.4 Albumin 3.7 Urine Color Urine Clarity Urine pH Ur Specific [place] Urine Protein Urine Ketones Urine Blood Urine Nitrite Urine Bilirubin Urine Urobilinogen Ur Leukocyte Esterase Urine Glucose COVID-19 Source SARS-CoV-2 (PCR) [facility] Medical History Anxiety Asthma Breast cancer CAD (coronary artery disease) Cataract Chronic pain Colonic polyp Constipation Depression Diabetes Hemorrhoid HTN (hypertension) Hypercholesterolemia Obesity Prurigo nodularis Sigmoid diverticulosis Surgical History Abdominal hysterectomy Appendectomy Bilateral salpingectomy with oophorectomy Biopsy of breast Cholecystectomy Colonoscopy - MAC Extraction of cataract PORT PLACEMENT port removal Tonsillectomy and adenoidectomy Family History Mother No problems noted. Father Diabetes Sister No problems noted. Sister No problems noted. Sister No problems noted. Brother No problems noted. Brother No problems noted. Son No problems noted. Son No problems noted. Daughter No problems noted. Daughter No problems noted. Maternal Aunt Ovarian cancer Social History Smoking/Tobacco Use Status: Former Tobacco Use Smoking risk assessment performed?: Yes Alcohol Intake: never Drug use: Never Substance use type: does not use Do you feel safe at home: Yes Do you feel safe in your relationship?: Yes
--- NOTE | 2020-11-06 16:19 | CMDISCH_ITS ---
- If Service Date Differs Date of service: 11/06/20 Time of Service: 16:19 LACE Index Scoring Tool - Questions: Length of Stay (in days): 1 Acuity (Admit via E.D.?): Yes Comorbidities: Congestive Heart Failure E.D. Visits: 2 - Answers: Total Score: 8 Risk of Readmission: Low Risk Care Management Discharge Reason for Hospitalization: Pulmonary Emboli Discharge Plan: Discharge home with no new services on [facility] via private transportation arranged by mauri Minna. Follow up with PCP and hemotology. Patient/Family Education Needs: Review discharge instructions and plan of care. ask me three.
--- NOTE | 2020-11-06 16:30 | RT.EKG_ITS ---
APPROVED REPORT Exam: Resting ECG Reason for Exam: no p wave Patient Location: I HR:56 bpm ECG Measurements Heart Rate 56 AXIS WI 118 P -48 QRSd 88 QRS 1 QT 473 T 25 QTc 459 Conclusion Sinus or ectopic atrial bradycardia...P axis (-45,135), rate< 60
== END 2020-11-06 18:35 | disposition home or self-care (01) ==
LOC: ER 23:44 → MS 11-06 00:47
PROVIDERS: Admitting Provider General Practice; Emergency Provider Physician Assistant; PCP Family Medicine; Visit Provider General Practice
DX: I26.99 Other pulmonary embolism without acute cor pulmonale (principal); E83.42 Hypomagnesemia; R55 Syncope and collapse; Z91.14 Patient's other noncompliance with medication regimen; Z79.01 Long term (current) use of anticoagulants; E11.9 Type 2 diabetes mellitus without complications; Z20.822 Contact with and (suspected) exposure to COVID-19; F41.9 Anxiety disorder, unspecified; J45.909 Unspecified asthma, uncomplicated; Z85.3 Personal history of malignant neoplasm of breast; I25.10 Atherosclerotic heart disease of native coronary artery without angina pectoris; G89.29 Other chronic pain; K59.00 Constipation, unspecified; F32.9 Major depressive disorder, single episode, unspecified; I10 Essential (primary) hypertension; E78.00 Pure hypercholesterolemia, unspecified; E66.9 Obesity, unspecified; Z68.38 Body mass index [BMI] 38.0-38.9, adult; K57.30 Diverticulosis of large intestine without perforation or abscess without bleeding
CPT/HCPCS: 36415; 36416; 71275; 80053; 82962; 87635; 93005; 93306; 96365; 96366; 99291; 81003; 83735; 83880; 84484; 85025; 93010; 99217; 99222; G0378; J1815; J3475; J3490

== ENCOUNTER 2021-06-20 14:54 | Emergency (ER) | payer MEDICARE, SELFPAY ==
[2021-06-20 14:55] VITALS: BP 134/77; PULSE 78; RESP 23; TEMP 36.8; O2SAT 97
--- NOTE | 2021-06-20 15:30 | DI.RAD_ITS ---
Exam(s) XR PORTABLE CHEST AP EXAM: XR PORTABLE CHEST AP CLINICAL HISTORY: cough, sob TECHNIQUE: 2D digital imaging was performed. COMPARISON: CT CT CHEST PE CTA from 11/05/2020 FINDINGS: LUNGS: Clear. No pleural abnormality seen. HEART: Mildly enlarged l. MEDIASTINUM: Normal. BONES: Degenerative changes with prominent osteophytes in the thoracic spine. IMPRESSION: No acute pulmonary findings. DATA REPOSITORY: RADIATION DOSE DELIVERED:
--- NOTE | 2021-06-20 15:30 | RT.EKG_ITS ---
APPROVED REPORT Exam: Resting ECG Reason for Exam: cough, hx of CAD Patient Location: E HR:75 bpm ECG Measurements Heart Rate 75 AXIS GA [id number] P [id number] QRSd 80 QRS 3 QT 405 T 28 QTc 453 Conclusion Atrial fibrillation...? atrial activity atrial fibrilattion, rate controlled, normal axis, normal intervals, non ischemic
--- NOTE | 2021-06-20 15:37 | W.ED.GENAD ---
Discharge Plan Disposition Patient Disposition: HOME Condition: Improving Discharge Details Clinical Impression: Acute UTI, COPD exacerbation, A-fib Primary Care Provider: Servando Young ED Provider: Axel Ledesma Home Meds and New Rx's Prescriptions: New cefpodoxime 100 mg tablet 100 mg PO BID 5 Days Qty: 10 0RF Rx Instructions: must administer with a meal/food albuterol sulfate 90 mcg/actuation HFA aerosol inhaler 2 puff inhalation Q6H PRN (Reason: shortness of breath or wheezing) Qty: 6.7 0RF No Action albuterol sulfate [Ventolin HFA] 90 mcg/actuation HFA aerosol inhaler 2 puff IH Q6H PRN0RF Biofreeze aerosol 1 ea topical PRN PRN0RF Label Comments: Biofreeze 10% aerosol fluticasone propion-salmeterol [Advair Diskus] 250-50 mcg/dose blister with device 1 inh IH BID 0RF erythromycin 5 mg/gram (0.5 %) ointment 1 applic OP DAILY 0RF ketoconazole 2 % cream 1 applic TP BID 0RF fluticasone propionate [Flonase Allergy Relief] 50 mcg/actuation spray,suspension 1 spray DAINA DAILY 0RF Lantus U-100 Insulin 100 unit/mL solution 35 unit SC DAILY 0RF amlodipine [Norvasc] 5 mg tablet 5 mg PO DAILY 0RF zinc oxide-white petrolatum 15-49 % ointment 1 applic TP BID PRN0RF simvastatin 40 MG tablet 40 mg PO DAILY 0RF metformin 1,000 MG tablet 1,000 mg PO BID 0RF nitroglycerin [Nitrostat] 0.4 MG tablet, sublingual 0.4 mg Sublingual PRN 0RF aspirin 81 MG tablet,chewable 81 mg PO DAILY 0RF nystatin [Nystop] 60 GM powder 60 gm Topical BID 0RF Centrum Silver 1 EACH tablet 1 ea PO DAILY 0RF vitamin E succinate 100 UNIT tablet 100 unit PO DAILY 0RF Metoprolol Succinate [Toprol Xl] 50 MG TAB.ER.24H 50 mg PO DAILY 0RF sertraline 100 MG tablet 200 mg PO DAILY 0RF acetaminophen 325 mg tablet 650 mg PO Q4H PRN0RF tramadol 50 mg tablet 50 mg PO Q6H PRN0RF tizanidine 2 mg capsule 2 mg PO Q8H PRN0RF duloxetine [Cymbalta] 30 mg Capsule,Delayed Release(Dr/Ec) 30 mg PO DAILY 0RF pregabalin [Lyrica] 100 mg Capsule 100 mg PO DAILY 0RF ferrous sulfate [FeroSul] 325 mg (65 mg iron) Tablet 325 mg PO DAILY 0RF colestipol 1 gram Tablet 2 g PO BID 0RF Eliquis 5 mg tablet 5 mg PO BID Qty: 73 0RF Rx Instructions: Take 10 mg po BID x 6.5 days then take 5 mg po BID oxycodone-acetaminophen 5-325 mg Tablet 1 tab PO Q4H PRN PRNQty: 20 0RF magnesium oxide 400 mg (241.3 mg magnesium) Tablet 800 mg PO BID Qty: 60 0RF omeprazole 20 mg Capsule,Delayed Release(Dr/Ec) 20 mg PO BID@07,1999 Qty: 60 0RF Discharge Instructions Instructions: A-fib (Atrial Fibrillation) (ED), Urinary Tract Infection in Women (ED), COPD (Chronic Obstructive Pulmonary Disease) (ED) Additional Instructions: Please be seen by your primary care physician as well as your enrollment management manager. Please return the emergency department for any worsening symptoms. Take your medications as prescribed. Medical Decision Making 71-year-old female history of asthma, possible COPD, hypertension, coronary disease presents with shortness of breath over the past several days associate with cough nonproductive, endorses subjective leg swelling, possible bilateral edema to level of ankle mild if any, lungs clear speaking full sentences no hypoxia normotensive nontoxic, symptoms more concerning for viral URI versus pneumonia versus COPD exacerbation versus less likely CHF exacerbation versus less likely PE or aortic pathology or ACS. Screening labs imaging nebs and steroids close reassessment COVID swab we will send UA as patient did have frequent urination. 16: 55 patient resting comfortably feeling better after breathing treatment. Evidence of mild UTI. Will treat empirically. Patient endorsed that she may have been told at some point that she has an irregular heartbeat however she is not 100% clear, does follow with a enrollment management manager encouraged her to follow-up regarding her A. fib; patient is anticoagulated HPI General Date/Time Provider Initiated Documentation: 06/20/21 14:58. HPI Narrative: 71-year-old female history of pretension coronary artery disease COPD diabetes, presents with shortness of breath cough wheezing over the past several days nonproductive cough, endorses bilateral lower extremity leg swelling. Related Data Home Medications Medication Instructions Recorded Confirmed Metoprolol Succinate [Toprol Xl] 50 mg PO DAILY tab-cap 03/03/17 01/22/20 aspirin 81 mg chewable tablet 81 mg PO DAILY tab-cap 03/03/17 06/20/21 metformin 1,000 mg tablet 1,000 mg PO BID tab-cap 03/03/17 06/20/21 annifdcf-pig-vjrvc acid 0.4 1 ea PO DAILY 03/03/17 11/05/20 mg-lycopene 300 mcg-lutein 250 mcg tablet (Centrum Silver) nitroglycerin 0.4 mg sublingual 0.4 mg SUBLINGUAL PRN 03/03/17 11/05/20 tablet (Nitrostat) nystatin 100,000 unit/gram topical 60 gm TOPICAL BID 03/03/17 11/05/20 powder (Nystop) simvastatin 40 mg tablet 40 mg PO DAILY tab-cap 03/03/17 06/20/21 vitamin E succinate 67 mg (100 100 unit PO DAILY 03/03/17 11/05/20 unit) tablet sertraline 100 mg tablet 200 mg PO DAILY tab-cap 03/05/17 11/05/20 Biofreeze 1 ea TOPICAL PRN PRN 04/23/18 01/22/20 acetaminophen 325 mg tablet 650 mg PO Q4H PRN tab-cap 04/23/18 11/05/20 albuterol sulfate 90 mcg/actuation 2 puff IH Q6H PRN gm 04/23/18 06/20/21 aerosol inhaler (Ventolin HFA) tizanidine 2 mg capsule 2 mg PO Q8H PRN cap 04/23/18 01/22/20 tramadol 50 mg tablet 50 mg PO Q6H PRN tab-cap 04/23/18 01/22/20 amlodipine 5 mg tablet (Norvasc) 5 mg PO DAILY 09/02/18 06/20/21 erythromycin 5 mg/gram (0.5 %) eye 1 applic OP DAILY 09/02/18 11/05/20 ointment fluticasone 250 mcg-salmeterol 50 1 inh IH BID 09/02/18 06/20/21 mcg/dose blistr powdr for inhalation (Advair Diskus) fluticasone propionate 50 1 spray DAINA DAILY 09/02/18 11/05/20 mcg/actuation nasal spray,suspension (Flonase Allergy Relief) insulin glargine 100 unit/mL 35 unit SC DAILY ml 09/02/18 11/05/20 subcutaneous solution (Lantus U-100 Insulin) ketoconazole 2 % topical cream 1 applic TP BID 09/02/18 01/22/20 zinc oxide-white petrolatum 15 1 applic TP BID PRN 09/02/18 11/05/20 %-49 % topical ointment duloxetine 30 mg capsule,delayed 30 mg PO DAILY 01/22/20 06/20/21 release (Cymbalta) pregabalin 100 mg capsule (Lyrica) 100 mg PO DAILY 01/22/20 06/20/21 colestipol 1 gram tablet 2 g PO BID 11/05/20 11/05/20 ferrous sulfate 325 mg (65 mg 325 mg PO DAILY 11/05/20 06/20/21 iron) tablet (FeroSul) apixaban 5 mg tablet (Eliquis) 5 mg PO BID #73 tab 11/06/20 06/20/21 magnesium oxide 400 mg (241.3 mg 800 mg PO BID #60 tab 11/06/20 magnesium) tablet omeprazole 20 mg capsule,delayed 20 mg PO BID@ #60 cap 11/06/20 06/20/21 release oxycodone-acetaminophen 5 mg-325 1 tab PO Q4H PRN PRN #20 tab 11/06/20 mg tablet albuterol sulfate 90 mcg/actuation 2 puff INHALATION Q6H PRN #6.7 g 06/20/21 aerosol inhaler cefpodoxime 100 mg tablet 100 mg PO BID 5 Days #10 tab 06/20/21 Previous Rx's Medication Instructions Recorded apixaban 5 mg tablet (Eliquis) 5 mg PO BID #73 tab 11/06/20 magnesium oxide 400 mg (241.3 mg 800 mg PO BID #60 tab 11/06/20 magnesium) tablet omeprazole 20 mg capsule,delayed 20 mg PO BID@729,1999 #60 cap 11/06/20 release oxycodone-acetaminophen 5 mg-325 1 tab PO Q4H PRN PRN #20 tab 09/13/21 mg tablet albuterol sulfate 90 mcg/actuation 2 puff INHALATION Q6H PRN #6.7 g 06/20/21 aerosol inhaler cefpodoxime 100 mg tablet 100 mg PO BID 5 Days #10 tab 06/20/21 Allergies Allergy/AdvReac Type Severity Reaction Status Date / Time adhesive tape Allergy Intermediate RASH Unverified 06/20/21 15:04 Sulfa (Sulfonamide Allergy Mild Skin Rash Unverified 06/20/21 15:04 Antibiotics) aspirin AdvReac Intermediate Nausea Unverified 06/20/21 15:04 General Stated Complaint: GenMedical REGAN: 2 Review of Systems Narrative: Review of Systems Constitutional: negative Eyes: negative ENT: negative Cardiovascular: Leg swelling bilaterally Respiratory: Shortness of breath, cough Gastrointestinal: negative : negative Musculoskeletal: negative Skin: negative Neurologic: negative Psych: negative PFSH All Active Problems (Updated 06/20/21 @ 17:00 by Axel Ledesma MD) Acute UTI (Acute) COPD exacerbation (Acute) A-fib (Chronic) Pulmonary emboli (Chronic) Lumbosacral radiculitis (Acute) Medical History Anxiety Asthma Breast cancer CAD (coronary artery disease) Cataract Chronic pain Colonic polyp Constipation Depression Diabetes Hemorrhoid HTN (hypertension) Hypercholesterolemia Obesity Prurigo nodularis Sigmoid diverticulosis Surgical History Abdominal hysterectomy Appendectomy Bilateral salpingectomy with oophorectomy Biopsy of breast Cholecystectomy Colonoscopy - MAC Extraction of cataract PORT PLACEMENT port removal Tonsillectomy and adenoidectomy Family History Mother No problems noted. Father Diabetes Sister No problems noted. Sister No problems noted. Sister No problems noted. Brother No problems noted. Brother No problems noted. Son No problems noted. Son No problems noted. Daughter No problems noted. Daughter No problems noted. Maternal Aunt Ovarian cancer Social History Smoking/Tobacco Use Status: Former Tobacco Use Smoking risk assessment performed?: Yes Alcohol Intake: never Drug use: Never Substance use type: does not use Do you feel safe at home: Yes Do you feel safe in your relationship?: Yes Exam Narrative Exam Narrative: Physical Examination General: alert, awake, cooperative, resting comfortably, no acute distress HEENT: normocephalic, atraumatic; PERRL, EOM intact, conjunctiva normal; no nasal discharge; moist mucous membranes, oral and pharyngeal mucosa normal, tolerating secretions Neck: supple, trachea midline; full ROM Chest: normal to inspection Respiratory: normal respiratory effort, speaking in full sentences, clear to auscultation, no wheezing, rales or rhonchi Cardiac: regular rate, regular rhythm, S1S2 intact, no murmurs rubs or gallops GI: abdomen soft, non-tender, non-distended; no palpable mass or hepatosplenomegaly Skin: no lesions, rashes or trauma appreciated Neuro: AAOx3, normal speech, moving all extremities Extremities: Obese extremities possible mild bilateral edema to ankles Psych: Appropriate mood and affect Course Vital Signs Vital signs: Vital Signs Temperature 36.8 C 06/20/21 14:55 Pulse 78 06/20/21 14:55 Respiratory Rate 23 06/20/21 14:55 Blood Pressure 134/77 06/20/21 14:55 Pulse Oximetry 97 06/20/21 14:55 Temperature 36.8 C 06/20/21 14:55 Temperature Source Tympanic 06/20/21 14:55 Pulse 78 06/20/21 14:55 Respiratory Rate 23 06/20/21 14:55 Respiratory Effort Short of Breath 06/20/21 15:21 Respiratory Depth Normal 06/20/21 15:21 Respiratory Pattern Normal 06/20/21 15:21 Blood Pressure 134/77 06/20/21 14:55 Blood Pressure Position Sitting 06/20/21 14:55 Pulse Oximetry 97 06/20/21 14:55 Oxygen Delivery Method Room Air 06/20/21 14:55 Oxygen Flow Rate 0 06/20/21 14:55 Pain Level 6 06/20/21 14:55
[2021-06-20] MEDS: Dexamethasone 10 MG/ML VIAL IVP (15:49)
[2021-06-20 15:54] LABS: Abs Immature Grans 0.02 10^3/uL (0.0-0.06); Absolute Basophil Count 0.03 10^3/uL (0.0-0.2); Absolute Eosinophil Count 0.12 10^3/uL (0.0-0.7); Absolute Lymphocyte Count 1.87 10^3/uL (1.2-3.4); Absolute Monocyte Count 0.49 10^3/uL (0.1-0.8); Absolute Neutrophil Count 4.55 10^3/uL (1.2-6.7); Basophils % 0.4; Eosinophils % 1.7; HCT 33.1 % (36.0-46.0); HGB 10.3 g/dL (11.2-15.7); Immature Grans % 0.3; Lymphocytes % 26.4; MCH 28.5 pg (27.0-33.0); MCHC 31.1 % (32.0-36.0); MCV 91.7 fL (80-95); MPV 11.5 fL (8.0-11.0); Monocytes % 6.9; Neutrophils % 64.3; Platelet Count 154 10^3/uL (130-400); RBC 3.61 10^6/uL (3.93-5.22); RDW 15.5 % (11.7-14.6); RDW-SD 51.5 fL; WBC 7.08 10^3/uL (4.4-10.8)
[2021-06-20 15:58] LABS: Bilirubin Negative (Negative); Blood Large (Negative); Clarity Cloudy (Clear); Glucose 100 mg/dL (Negative); Ketones Negative (Negative); Leukocyte Esterase Moderate (Negative); Nitrite Negative (Negative); Specific Gravity >= 1.030 (1.005-1.025); Urobilinogen 0.2 EU/dL (Up TO 0.2)
[2021-06-20 16:15] LABS: Bacteria Rare HPF (Negative); C & S Indicated? Yes; Epithelial Cells Moderate HPF (Negative); RBC >50 HPF (0-2); WBC >50 HPF (0-5)
[2021-06-20 16:19] LABS: ALT 7 U/L (14-59); AST 16 U/L (15-37); Albumin 3.1 g/dL (3.4-5.0); Alkaline Phosphatase 72 U/L (46-116); Anion Gap 4.3 mmol/L (3-11); BUN 17 mg/dL (7-18); Bilirubin, Total 0.3 mg/dL (0.2-1.0); CO2 29.7 mmol/L (21.0-32.0); CREATININE 1.1 mg/dL (0.55-1.02); Calcium 8.6 mg/dL (8.5-10.1); Chloride 105 mmol/L (98-107); Estimated GFR 48.82 (mL/min/1.73m2); Glucose 296 mg/dL (74-106); NT-proBNP 752 pg/mL (<300); Potassium 4.2 mmol/L (3.5-5.1); Sodium 139 mmol/L (136-145); Total Protein 6.9 g/dL (6.4-8.2); Troponin I < 50 ng/L (<or=60)
[2021-06-20] MEDS: Albuterol/Ipratropium 3 ML UPD VIAL 9 ML UPD (17:12)
[2021-06-20] MEDS: Cefpodoxime 200 MG TAB PO (17:12)
[2021-06-20 17:24] VITALS: PULSE 97; RESP 19; O2SAT 99
[2021-06-22 11:40] LABS: COVID-19 RT-PCR UVMMC Result Negative (Negative)
== END 2021-06-20 17:25 | disposition home or self-care (01) ==
PROVIDERS: Emergency Provider Emergency Medicine; PCP Family Medicine
DX: N39.0 Urinary tract infection, site not specified (principal); B96.89 Other specified bacterial agents as the cause of diseases classified elsewhere; J44.1 Chronic obstructive pulmonary disease with (acute) exacerbation; Z20.822 Contact with and (suspected) exposure to COVID-19; I48.91 Unspecified atrial fibrillation; R06.02 Shortness of breath; R05.9 Cough, unspecified
CPT/HCPCS: 36415; 80053; 93005; 96374; 99284; U0003; 71045; 81003; 81015; 83880; 84484; 85025; 87086; 93010; J1100; J7620

== ENCOUNTER 2022-10-28 13:39 | Inpatient (IN) | payer MEDICARE, SELFPAY ==
[2022-10-28] VITALS (55 sets, daily range): BP systolic 128–167; BP diastolic 70–89; PULSE 62–85; RESP 14–32; TEMP 36.8–37.2; O2SAT 86–99
--- NOTE | 2022-10-28 13:45 | RT.EKG_ITS ---
APPROVED REPORT Exam: Resting ECG Reason for Exam: SOB Patient Location: E HR:74 bpm ECG Measurements Heart Rate 74 AXIS [place] [id number] P [id number] QRSd 92 QRS -2 QT 393 T 86 QTc 436 Conclusion Accelerated junctional rhythm...absent P waves, accele'd V-rate
--- NOTE | 2022-10-28 14:15 | DI.CT_ITS ---
Exam(s) CT HEAD WO EXAM: CT HEAD WO CLINICAL HISTORY: weakness. TECHNIQUE: Imaging Protocol: Axial computed tomography images with coronal and sagittal reformatted images were created and reviewed COMPARISON: CT HEAD AND CSPINE W/O CONTRAST from 11/13/2015 FINDINGS: Ventricles and Extra axial spaces: Normal in size and morphology for the patient's age. Hemorrhage: None. Cerebral parenchyma: No acute territorial infarct. There are areas of decreased attenuation in the w ange matter consistent with small vessel ischemic disease. Midline shift: None. Brainstem/Cerebellum: Normal. Calvarium: Normal. Visualized Paranasal sinuses/Mastoids: Mucous retention cyst or polyp in the right maxillary sinus. The remaining visualized paranasal sinuses are clear. Soft Tissues: Unremarkable. IMPRESSION: No acute intracranial process. RADIATION DOSE DELIVERED: 747.76mGy.cm Total DLP DATA REPOSITORY: All CT scans at this facility are submitted to the National Radiology Data Registry (NRDR) Dose Index Registry (DIR) with the [employer] ([employer]). RADIATION OPTIMIZATION: All CT scans at this facility use at least one of these dose optimization te chniques: automated exposure control; mA and/or kV adjustment per patient size (includes targeted exa ms where dose is matched to clinical indication); or iterative reconstruction.
--- NOTE | 2022-10-28 14:29 | ED.GENADUL_ITS ---
Discharge Plan Discharge Details Chief Complaint: GenMedical Primary Care Provider: Servando Young ED Provider: Juancarlos Saldnaa Home Meds and New Rx's Prescriptions: No Action albuterol sulfate [Ventolin HFA] 90 mcg/actuation HFA aerosol inhaler 2 puff IH Q6H PRN Biofreeze aerosol 1 ea topical PRN PRN Patient Comments: Biofreeze 10% aerosol fluticasone propion-salmeterol [Advair Diskus] 250-50 mcg/dose blister with device 1 inh IH BID erythromycin 5 mg/gram (0.5 %) ointment 1 applic OP DAILY ketoconazole 2 % cream 1 applic TP BID fluticasone propionate [Flonase Allergy Relief] 50 mcg/actuation spray,suspension 1 spray DAINA DAILY Lantus U-100 Insulin 100 unit/mL solution 35 unit SC DAILY amlodipine [Norvasc] 5 mg tablet 5 mg PO DAILY zinc oxide-white petrolatum 15-49 % ointment 1 applic TP BID PRN simvastatin 40 MG tablet 40 mg PO DAILY metformin 1,000 MG tablet 1,000 mg PO BID nitroglycerin [Nitrostat] 0.4 MG tablet, sublingual 0.4 mg Sublingual PRN aspirin 81 MG tablet,chewable 81 mg PO DAILY nystatin [Nystop] 60 GM powder 60 gm Topical BID Centrum Silver 1 EACH tablet 1 ea PO DAILY vitamin E succinate 100 UNIT tablet 100 unit PO DAILY Metoprolol Succinate [Toprol Xl] 50 MG TAB.ER.24H 50 mg PO DAILY sertraline 100 MG tablet 200 mg PO DAILY acetaminophen 325 mg tablet 650 mg PO Q4H PRN tramadol 50 mg tablet 50 mg PO Q6H PRN tizanidine 2 mg capsule 2 mg PO Q8H PRN duloxetine [Cymbalta] 30 mg Capsule,Delayed Release(Dr/Ec) 30 mg PO DAILY pregabalin [Lyrica] 100 mg Capsule 100 mg PO DAILY ferrous sulfate [FeroSul] 325 mg (65 mg iron) Tablet 325 mg PO DAILY colestipol 1 gram Tablet 2 g PO BID Eliquis 5 mg tablet 5 mg PO BID Qty: 73 0RF Rx Instructions: Take 10 mg po BID x 6.5 days then take 5 mg po BID oxycodone-acetaminophen 5-325 mg Tablet 1 tab PO Q4H PRN PRNQty: 20 0RF magnesium oxide 400 mg (241.3 mg magnesium) Tablet 800 mg PO BID Qty: 60 0RF omeprazole 20 mg Capsule,Delayed Release(Dr/Ec) 20 mg PO BID@ Qty: 60 0RF albuterol sulfate 90 mcg/actuation HFA aerosol inhaler 2 puff inhalation Q6H PRN (Reason: shortness of breath or wheezing) Qty: 6.7 0RF Medical Decision Making Medical Records Medical records reviewed: Yes I reviewed the patient's medical records. Lab Data Lab results reviewed: Yes I reviewed the patient's lab results. Lab results narrative: RUN DATE: 10/28/22 [facility] PAGE 1 RUN TIME: [id number] RUN USER: [place] [address] Bhumi Moran MD PATIENT REPORT PATIENT: Enedelia Gomez LOC: ER U #: [id number] /SX: [id number] F ROOM: RE10/28/[address]: JUANCARLOS SALDANA MD STATUS: PRE ER BED: DIS: SPEC #: [id number] SARABJIT: 10/28/22 STATUS: COMP REQ #: [id number] RECD: 10/28/22-[address]: JUANCARLOS SALDANA MD ENTERED: 10/28/22-[address] [facility] [address]: Servando Young DO FAX #: ORDERED: CBC/Diff Test Result Flag Reference Verified WBC 9.30 4.4-10.8 10^3/uL 10/28/22-1500 RBC 4.02 3.93-5.22 10^6/uL 10/28/22-1500 HGB 11.5 11.2-15.7 g/dL 10/28/22-1500 HCT 35.2 L 36.0-46.0 % 10/28/22-1500 MCV 88 80-95 fL 10/28/22 MCH 28.6 27.0-33.0 pg 10/28/22 MCHC 32.7 32.0-36.0 % 10/28/22 RDW 14.2 11.7-14.6 % 10/28/22 Platelet Count 189 130-400 10^3/uL 10/28/22150 MPV 11.7 H 8.0-11.0 fL 10/28/22 Neutrophils % 66.0 10/28/22150 Lymphocytes % 22.6 10/28/22150 Monocytes % 9.9 10/28/22150 Eosinophils % 0.6 10/28/22150 Basophils % 0.4 10/28/22 Immature Grans % 0.5 10/28/22 Nucleated RBC 0.0 0.0-0.3 % 10/28/22 Absolute Neutrophil Count 6.13 1.2-6.7 10^3/uL 10/28/22150 Absolute Lymphocyte Count 2.10 1.2-3.4 10^3/uL 10/28/22150 Absolute Monocyte Count 0.92 H 0.1-0.8 10^3/uL 10/28/22150 Absolute Eosinophil Count 0.06 0.0-0.7 10^3/uL 10/28/22150 Absolute Basophil Count 0.04 0.0-0.2 10^3/uL 10/28/22150 Patient: Enedelia Gomez LABORATORY Acct#[id number] [facility]#[id number] ECG Data Attestation: I personally reviewed and interpreted this ECG (s) as follows: Prior ECG tracings: available for review Interpretation: Heart rate 74 junctional rhythm rhythm no acute ST-T changes HPI General Date/Time Provider Initiated Documentation: 10/28/22 14:19 . HPI Narrative: Patient presents emergency department complaining of generalized weakness and pain in the right arm right chest radiating to her back. Reports mild shortness of breath. Told the ambulance that she was weak also on the left side x2 days. Reports cough nonproductive sputum denies any fever denies any chills. States pain is worse when she moves her right arm and also worse when she coughs or takes a deep breath. Related Data Home Medications Medication Instructions Recorded Confirmed Metoprolol Succinate [Toprol Xl] 50 mg PO DAILY 03/03/17 01/22/20 aspirin 81 mg chewable tablet 81 mg PO DAILY 03/03/17 06/20/21 metformin 1,000 mg tablet 1,000 mg PO BID 03/03/17 06/20/21 cealgszj-abq-qletg acid 0.4 1 ea PO DAILY 03/03/17 11/05/20 mg-lycopene 300 mcg-lutein 250 mcg tablet (Centrum Silver) nitroglycerin 0.4 mg sublingual 0.4 mg sublingual PRN 03/03/17 11/05/20 tablet (Nitrostat) nystatin 100,000 unit/gram topical 60 gm topical BID 03/03/17 11/05/20 powder (Nystop) simvastatin 40 mg tablet 40 mg PO DAILY 03/03/17 06/20/21 vitamin E succinate 67 mg (100 100 unit PO DAILY 03/03/17 11/05/20 unit) tablet sertraline 100 mg tablet 200 mg PO DAILY 03/05/17 11/05/20 Biofreeze 1 ea topical PRN PRN 04/23/18 01/22/20 acetaminophen 325 mg tablet 650 mg PO Q4H PRN 04/23/18 11/05/20 albuterol sulfate 90 mcg/actuation 2 puff inhalation Q6H PRN 04/23/18 06/20/21 aerosol inhaler (Ventolin HFA) tizanidine 2 mg capsule 2 mg PO Q8H PRN 04/23/18 01/22/20 tramadol 50 mg tablet 50 mg PO Q6H PRN 04/23/18 01/22/20 amlodipine 5 mg tablet (Norvasc) 5 mg PO DAILY 09/02/18 06/20/21 erythromycin 5 mg/gram (0.5 %) eye 1 applic ophthalmic (eye) DAILY 09/02/18 11/05/20 ointment fluticasone 250 mcg-salmeterol 50 1 inh inhalation BID 09/02/18 06/20/21 mcg/dose blistr powdr for inhalation (Advair Diskus) fluticasone propionate 50 1 spray intranasal DAILY 09/02/18 11/05/20 mcg/actuation nasal spray,suspension (Flonase Allergy Relief) insulin glargine 100 unit/mL 35 unit subcut DAILY 09/02/18 11/05/20 subcutaneous solution (Lantus U-100 Insulin) ketoconazole 2 % topical cream 1 applic topical BID 09/02/18 01/22/20 zinc oxide-white petrolatum 15 1 applic topical BID PRN 09/02/18 11/05/20 %-49 % topical ointment duloxetine 30 mg capsule,delayed 30 mg PO DAILY 01/22/20 06/20/21 release (Cymbalta) pregabalin 100 mg capsule (Lyrica) 100 mg PO DAILY 01/22/20 06/20/21 colestipol 1 gram tablet 2 g PO BID 11/05/20 11/05/20 ferrous sulfate 325 mg (65 mg 325 mg PO DAILY 11/05/20 06/20/21 iron) tablet (FeroSul) apixaban 5 mg tablet (Eliquis) 5 mg PO BID #73 tabs 11/06/20 06/20/21 magnesium oxide 400 mg (241.3 mg 800 mg PO BID #60 tabs 11/06/20 magnesium) tablet omeprazole 20 mg capsule,delayed 20 mg PO BID@ #60 caps 11/06/20 06/20/21 release oxycodone-acetaminophen 5 mg-325 1 tab PO Q4H PRN PRN #20 tabs 11/06/20 mg tablet albuterol sulfate 90 mcg/actuation 2 puff inhalation Q6H PRN 06/20/21 aerosol inhaler shortness of breath or wheezing #6.7 grams Previous Rx's Medication Instructions Recorded apixaban 5 mg tablet (Eliquis) 5 mg PO BID #73 tabs 11/06/20 magnesium oxide 400 mg (241.3 mg 800 mg PO BID #60 tabs 11/06/20 magnesium) tablet omeprazole 20 mg capsule,delayed 20 mg PO BID@ #60 caps 11/06/20 release oxycodone-acetaminophen 5 mg-325 1 tab PO Q4H PRN PRN #20 tabs 11/06/20 mg tablet albuterol sulfate 90 mcg/actuation 2 puff inhalation Q6H PRN 06/20/21 aerosol inhaler shortness of breath or wheezing #6.7 grams Allergies Allergy/AdvReac Type Severity Reaction Status Date / Time adhesive tape Allergy Intermediate RASH Unverified 10/28/22 13:48 Sulfa (Sulfonamide Allergy Mild Skin Rash Unverified 10/28/22 13:48 Antibiotics) aspirin AdvReac Intermediate Nausea Unverified 10/28/22 13:48 General Stated Complaint: GenMedical REGAN: 3 Review of Systems All systems reviewed & are unremarkable except as noted in HPI and below Constitutional Constitutional: Reports fatigue and Reports lethargy Eyes Eyes: Reports as per HPI ENT Ears, Nose, Mouth, and Throat: Reports system reviewed and no additional complaints, except as documented Cardiovascular Cardiovascular: Reports chest pain and Reports dyspnea Respiratory Respiratory: Reports pain on inspiration, Reports pain with cough and Reports dyspnea Gastrointestinal Gastrointestinal: Reports as per HPI and Reports system reviewed and no additional complaints, except as documented Genitourinary Genitourinary: Reports system reviewed and no additional complaints, except as documented Musculoskeletal Musculoskeletal: Reports system reviewed and no additional complaints, except as documented Integumentary/Breasts Skin/Breast: Reports system reviewed and no additional complaints, except as documented Neurologic Neurologic: Reports system reviewed and no additional complaints, except as documented Psychiatric Psychiatric: Reports system reviewed and no additional complaints, except as documented Endocrine Endocrine: Reports system reviewed and no additional complaints, except as documented and Reports fatigue PFSH All Active Problems Pulmonary emboli (Chronic) Lumbosacral radiculitis (Acute) Medical History Anxiety Asthma Breast cancer CAD (coronary artery disease) Cataract Chronic pain Colonic polyp Constipation Depression Diabetes Hemorrhoid HTN (hypertension) Hypercholesterolemia Obesity Prurigo nodularis Sigmoid diverticulosis Surgical History Abdominal hysterectomy Appendectomy Bilateral salpingectomy with oophorectomy Biopsy of breast Cholecystectomy Colonoscopy - MAC Extraction of cataract PORT PLACEMENT port removal Tonsillectomy and adenoidectomy Family History Mother No problems noted. Father Diabetes Sister No problems noted. Sister No problems noted. Sister No problems noted. Brother No problems noted. Brother No problems noted. Son No problems noted. Son No problems noted. Daughter No problems noted. Daughter No problems noted. Maternal Aunt Ovarian cancer Social History Smoking/Tobacco Use Status: Former Tobacco Use Smoking risk assessment performed?: Yes Alcohol Intake: never Drug use: Never Substance use type: does not use Do you feel safe at home: Yes Do you feel safe in your relationship?: Yes Exam Narrative Exam Narrative: Exam; vitals signs as reported above normal Constitutional; In no acute distress, afebrile General: cooperative, healthy appearing, comfortable and no acute distress HEENT: Head: normal to inspection, no palpable skull fracture and normocephalic atraumatic Eyes: : appearance normal, both eyes and all related structures EOM intact bilaterally Pupils: PERRL : conjunctiva normal Direct ophthalmoscopy: normal light reflex, normal conjunctiva, normal visual acuity Ears: Normal TM, normal external canal Neck no JVD, supple non tender Neck: normal visual inspection, full ROM and no lymphadenopathy Chest: normal inspection of the chest Respiratory : Rales bilaterally but right greater than left Cardio Rate: regular rate, rhythm: regular rhythm normal heart sounds S1 and S2 no murmurs, gallops, or rubs GI : normal to inspection, normal bowel sounds, soft, non tender, non distended, no organomegaly Back/Spine/ no CVA tenderness Thoracic/Lumbar Spine: no tenderness or deformities Skin no rashes or lesions Neuro: patient alert and no meningeal signs, Cranial Nerves: CN's II-XI intact bilaterally, Cognition: normal cognition, Speech: speech normal, Gait: normal gait, Depp tendon reflexes normal 2+ muscle strength 5/5 bilaterally Extremities, no edema, full range of motion, normal strength : normal Rectal: defered Course Vital Signs Vital signs: Vital Signs Temperature 36.8 C 10/28/22 13:39 Pulse 83 10/28/22 13:39 Respiratory Rate 20 10/28/22 13:39 Blood Pressure 147/77 H 10/28/22 13:39 Pulse Oximetry 98 10/28/22 13:39 Temperature 36.8 C 10/28/22 13:39 Temperature Source Oral 10/28/22 13:39 Pulse 83 10/28/22 13:39 Respiratory Rate 26 H 10/28/22 14:04 Respiratory Effort Short of Breath, Labored 10/28/22 14:04 Respiratory Depth Shallow 10/28/22 14:04 Respiratory Pattern Normal 10/28/22 14:04 Blood Pressure 147/77 H 10/28/22 13:39 Blood Pressure Position Sitting 10/28/22 13:39 Pulse Oximetry 98 10/28/22 13:39 Oxygen Delivery Method Room Air 10/28/22 13:39 Oxygen Flow Rate 0 10/28/22 13:39 Pain Level 10 10/28/22 13:39 Lab/Test Results Lab/Test Results: 10/28/22 14:19 Blood Blood Culture - Pending 10/28/22 14:19 Blood Blood Culture - Pending POCUS Exam (ED) Limited Cardiac Exam DATE OF EXAM: 10/28/22 TIME OF EXAM: 15:00 REASON FOR EXAM: Dyspnea and Hypovolemic shock VISUALIZED STRUCTURES: Four Chambers, Left atrium, Left ventricle, LVOT, Right atrium, Right ventricle, Aortic valve, Mitral valve, Interventricular septum and IVC VIEW OBTAINED: Apical 4-Chamber, Parasternal long-axis, Parasternal short-axis and Subxiphoid PERTINENT FINDINGS/IMPRESSION: IVC inspiratory collapsability ( collapsed); No LV dysfunction DIFFERENTIAL DIAGNOSES: hyperdynamiv LV INCIDENTAL FINDINGS: aortic stenosis mild Exam complete CONNER Exam DATE OF EXAM: 10/28/22 TIME OF EXAM: 15:00 PROVIDER THAT PERFORMED THE STUDY: Juancarlos Saldana IS THIS A REPEAT EXAM DURING THIS ENCOUNTER: No REASON FOR EXAM: Other (dyspnea) indication: dyspnea, chest pain VISUALIZED STRUCTURES: Cardiac Four Chambers, Heart (hyperdynamic ), Inferior Vena Cava, Lung/left side and Lung/right side PERTINENT FINDINGS/IMPRESSION: Abnormal IVC, (collapsed IVC) details of abnor malities: collapsed after IVF and Other (A/B lung profile with alveolar/interstitial profile left) impression: left infiltrate ; No aorta abnormalities and No global cardiac hypokinesis noted DIFFERENTIAL DIAGNOSES: pneumonia/ sepsis Echocardiography/Transthoracic Limited Exam: Exam Complete Chest Limited Exam: Exam Complete Abdominal Limited Exam: Exam Complete Retroperitoneal Limited Exam: Exam Complete Vital Signs & Lab Results Vital Signs Most Recent Vital Signs: Most Recent Vital Signs Temp Pulse Resp BP Pulse Ox 36.8 C 75 27 H 150/78 H 98 10/28/22 13:39 10/28/22 14:31 10/28/22 14:50 10/28/22 14:31 10/28/22 13:39 Point of Care Results Nursing Point of Care Results: No Data to Display Lab Results 10/28/22 14:02 10/28/22 14:02 Blood Type / Crossmatch: No Data to Display Complete Blood Count: White Blood Count 9.30 10^3/uL (4.4-10.8) 10/28/22 14:02 Red Blood Count 4.02 10^6/uL (3.93-5.22) 10/28/22 14:02 Hemoglobin 11.5 g/dL (11.2-15.7) 10/28/22 14:02 Hematocrit 35.2 % (36.0-46.0) L 10/28/22 14:02 Platelet Count 189 10^3/uL (130-400) 10/28/22 14:02 Venous Blood Lactate 2.2 mmol/L (0.6-1.4) H* 10/28/22 14:38 Complete Metabolic Panel: Sodium 134 mmol/L (136-145) L 10/28/22 14:02 Potassium 4.1 mmol/L (3.5-5.1) 10/28/22 14:02 Chloride 96 mmol/L (98-107) L 10/28/22 14:02 Carbon Dioxide 28.0 mmol/L (21.0-32.0) 10/28/22 14:02 BUN 21 mg/dL (7-18) H 10/28/22 14:02 Creatinine 1.1 mg/dL (0.55-1.02) H 10/28/22 14:02 Est GFR (CKD-EPI 2020) 53.06 (mL/min/1.73m2) 10/28/22 14:02 Magnesium 1.2 mg/dL (1.8-2.4) L 10/28/22 14:02 Calcium 9.0 mg/dL (8.5-10.1) 10/28/22 14:02 Albumin 3.2 g/dL (3.4-5.0) L 10/28/22 14:02 Glucose 331 mg/dL (74-106) H 10/28/22 14:02 Liver Function Panel: Alanine Aminotransferase (ALT/SGPT) 8 U/L (14-59) L 10/28/22 14 :02 Aspartate Amino Transf (AST/SGOT) 9 U/L (15-37) L 10/28/22 14:0 2 Coagulation Panel: D-Dimer 2847 ng/mlFEU (<500) H 10/28/22 14:02 Cardiac Panel: Troponin I < 50 ng/L (<or=60) 10/28/22 NT-Pro-B Natriuret Pep 2754 pg/mL (<300) H 10/28/22 Arterial Blood Gas: No Data to Display Venous Blood Gas: No Data to Display Pancreas Panel: No Data to Display Thyroid Panel: No Data to Display Infectious Disease: No Data to Display Blood Cultures: No Data to Display Toxicology Panel: No Data to Display
[2022-10-28] MEDS: Normal Saline 1,000 ML 1000 ML IV (14:40)
[2022-10-28 14:46] LABS: Lactate 2.2 mmol/L (0.6-1.4)
[2022-10-28 14:59] LABS: Abs Immature Grans 0.05 10^3/uL (0.0-0.06); Absolute Basophil Count 0.04 10^3/uL (0.0-0.2); Absolute Eosinophil Count 0.06 10^3/uL (0.0-0.7); Absolute Monocyte Count 0.92 10^3/uL (0.1-0.8); Absolute Neutrophil Count 6.13 10^3/uL (1.2-6.7); Basophils % 0.4; Eosinophils % 0.6; HCT 35.2 % (36.0-46.0); HGB 11.5 g/dL (11.2-15.7); Immature Grans % 0.5; Lymphocytes % 22.6; MCH 28.6 pg (27.0-33.0); MCHC 32.7 % (32.0-36.0); MCV 88 fL (80-95); MPV 11.7 fL (8.0-11.0); Monocytes % 9.9; Platelet Count 189 10^3/uL (130-400); RBC 4.02 10^6/uL (3.93-5.22); RDW 14.2 % (11.7-14.6); RDW-SD 45.8 fL
[2022-10-28 15:13] LABS: ALT 8 U/L (14-59); AST 9 U/L (15-37); Albumin 3.2 g/dL (3.4-5.0); Alkaline Phosphatase 69 U/L (46-116); BUN 21 mg/dL (7-18); CREATININE 1.1 mg/dL (0.55-1.02); Chloride 96 mmol/L (98-107); Estimated GFR 53.06 (mL/min/1.73m2); Glucose 331 mg/dL (74-106); Magnesium 1.2 mg/dL (1.8-2.4); NT-proBNP 2754 pg/mL (<300); Potassium 4.1 mmol/L (3.5-5.1); Sodium 134 mmol/L (136-145); Total Protein 7.6 g/dL (6.4-8.2); Troponin I < 50 ng/L (<or=60)
[2022-10-28 15:26] LABS: D-Dimer 2847 ng/mlFEU (<500)
--- NOTE | 2022-10-28 15:35 | DI.RAD_ITS ---
Exam(s) XR CHEST 1V IN DI DEPT EXAM: XR CHEST 1V IN DI DEPT CLINICAL HISTORY: dyspnea TECHNIQUE: 2D digital imaging was performed of the chest. One image was obtained. An AP view was ob tained. COMPARISON: CR XR PORTABLE CHEST AP from 06/20/2021 FINDINGS: MEDIASTINUM: Normal. HEART: Normal. PULMONARY VASCULATURE: Normal. LUNGS: Clear. PLEURAL SPACE: No pleural effusion or pneumothorax. BONE:Within normal limits for the patient's age. OTHER FINDINGS:Normal. IMPRESSION: No acute pulmonary findings. DATA REPOSITORY: RADIATION DOSE DELIVERED:
--- NOTE | 2022-10-28 15:45 | DI.CT_ITS ---
Exam(s) CT CHEST PE CTA EXAM: CT CHEST PE CTA CLINICAL HISTORY: SOB, CP. TECHNIQUE: Imaging Protocol: CT angiography of the chest was performed using pulmonary embolus antonia col. Multi planar reconstructions were performed. CONTRAST MATERIAL: Intravenous: Omnipaque 350 Contrast volume: 100 cc COMPARISON: CT CT CHEST PE CTA from 11/05/2020 FINDINGS: CHEST: PULMONARY ARTERIES: There is subtle areas of peripheral filling defects in the right lower lobe vesse ls may represent pulmonary emboli, possibly not acute. No other intraluminal filling defects evident . LUNGS: No evidence of pulmonary infarction or confluent infiltrates. There is symmetrical bilateral interstitial disease, probably element of pulmonary fibrosis.. There are no pleural effusions. MEDIASTINUM: No hilar adenopathy. Mild subcarinal adenopathy. No adenopathy in the anterior mediast inal fat. Visualized thyroid unremarkable CARDIAC: Heart size is upper normal. There is no pericardial effusion.Caliber of the thoracic aorta is within normal limits. No evidence of dissection. There is no significant shift of the interventri cular septum. PARTIALLY VISUALIZED UPPERMOST ABDOMEN: Gallbladder surgically absent. OSSEOUS: No acute fractures. No osseous lesions.. IMPRESSION: 1. Suspicion of pulmonary emboli in right lower lobe segmental/subsegmental branches. There is possi prachi that these are not acute..No evidence of pulmonary infarction. No obvious right heart strain. 2. Bilateral interstitial lung disease. No confluent infiltrates no lung mass evident. 3. Mild subcarinal adenopathy evident. There is no hilar adenopathy RADIATION DOSE DELIVERED: 649.69mGy.cm Total DLP DATA REPOSITORY: All CT scans at this facility are submitted to the National Radiology Data Registry (NRDR) Dose Index Registry (DIR) with the [employer] (A[employer]). RADIATION OPTIMIZATION: All CT scans at this facility use at least one of these dose optimization te chniques: automated exposure control; mA and/or kV adjustment per patient size (includes targeted exa ms where dose is matched to clinical indication); or iterative reconstruction.
--- NOTE | 2022-10-28 16:11 | DI.VRAD_ITS ---
PROCEDURE INFORMATION: Exam: XR Chest Exam date and time: 10/28/2022 3:39 PM Age: 72 years old Clinical indication: Dyspnea TECHNIQUE: Imaging protocol: Radiologic exam of the chest. Views: 1 view. COMPARISON: CR XR PORTABLE CHEST AP 06/20/2021 4:12 PM FINDINGS: Lungs: Clear lungs. Pleural spaces: No pneumothorax. No sizable pleural effusion. Heart/Mediastinum: No cardiomegaly. Bones/joints: Unremarkable. IMPRESSION: Clear lungs. Dictated and Authenticated by: Erasto Arnett MD. Ordering:ANTIONE Bauer MD
--- NOTE | 2022-10-28 16:12 | DI.VRAD_ITS ---
PROCEDURE INFORMATION: Exam: CT Head Without Contrast Exam date and time: 10/28/2022 3:38 PM Age: 72 years old Clinical indication: Weakness TECHNIQUE: Imaging protocol: Computed tomography of the head without contrast. Radiation optimization: All CT scans at this facility use at least one of these dose optimization techniques: automated exposure control; mA and/or kV adjustment per patient size (includes targeted exams where dose is matched to clinical indication); or iterative reconstruction. COMPARISON: CT HEAD AND CSPINE W/O CONTRAST 11/13/2015 12:33 PM FINDINGS: Brain: Age-related involutional changes and chronic microvascular ischemic disease. No evidence for acute transcortical infarct. No mass effect or midline shift. No extra-axial collection. No acute intracranial hemorrhage. Basal cisterns are patent. Cerebral ventricles: No ventriculomegaly. Paranasal sinuses: Visualized sinuses are unremarkable. No fluid levels. Mastoid air cells: Visualized mastoid air cells are well aerated. Orbital cavities: Bilateral cataract surgery. Bones/joints: Unremarkable. No acute fracture. Soft tissues: Unremarkable. IMPRESSION: No evidence for acute transcortical infarct, acute intracranial hemorrhage, or mass effect. Dictated and Authenticated by: Erasto Arnett MD. Ordering:ANTIONE Bauer MD
[2022-10-28 16:13] LABS: Bilirubin Negative (Negative); Blood Negative (Negative); Clarity Clear (Clear); Glucose 100 mg/dL (Negative); Ketones Negative (Negative); Leukocyte Esterase Negative (Negative); Nitrite Negative (Negative); Specific Gravity >= 1.030 (1.005-1.025)
[2022-10-28] MEDS: cefTRIAXone 1 GM/50 ML BAG IVPB (16:23)
[2022-10-28 16:25] LABS: Bacteria Negative HPF (Negative); C & S Indicated? C&S Done As Ordered; Casts 0-2 Hyaline LPF (Negative); Crystals Negative HPF (Negative); Epithelial Cells Rare HPF (Negative); Mucus Trace (Negative); Other Cells Rare Transitional (Negative); RBC 0-2 HPF (0-2)
[2022-10-28] MEDS: Normal Saline Flush 10 ML SYR IVP (16:30)
[2022-10-28] MEDS: Normal Saline - Diluent 50 ML VIAL IV (16:35)
[2022-10-28] MEDS: AZITHROMYCIN 500 MG in Normal Saline 250 ML 250 MG IVPB (17:01)
--- NOTE | 2022-10-28 17:16 | W.EDPROG ---
Date of service: 10/28/22 Time of Service: 17:17 Medical Decision Making 1600?care was signed out by Dr. Pichardo, please see his documentation regarding initial ED presentation course. Plan at signout was to follow-up on CT of the head, chest x-ray, CT of the chest. Patient receiving IV fluid bolus. Dr. Pichardo there is concern for pneumonia as initiated treatment with antibiotics. -- Chest x-ray was reviewed and interpreted by radiology: Clear lungs. CT of the head was interpreted by radiology: No evidence for acute transcortical infarct, acute intracranial hemorrhage, or mass effect. 171 --I reviewed patient's labs. Hypomagnesemia magnesium low 1.2. I will give magnesium 2 g IV. BNP is elevated. CT of the chest has been performed and is pending. I spoke with patient's family, daughter and updated her past course. 2015 --significant delayed care awaiting results of CT chest. CAT scan still pending. I asked radiology to expedite this. Patient was reassessed and resting comfortably on 1 L nasal cannula saturating 93-96%. Oxygen was removed and she continued to saturate well at rest. Lungs clear to auscultation. Patient does note that she had some scapular pain 2 days ago. She notes weakness in both arms. 2020 -- I called and spoke with on-call hospitalist, Dr. Keating, discussed ED presentation course, she will admit the patient. Sign Out Sign Out Data: Sign Out Comment: Patient presents to the emergency department complaining of right-sided chest pain vital signs show normal blood pressure but she is hypoxic down to 88% on room air. She is afebrile Labs show no elevated lactic acid elevated BUN to creatinine ratio hyponatremia hyperglycemia compatible with hypovolemia which is supported by [id number] ultrasound of her heart which shows a hyperdynamic heart with a collapsed IVC and a potential infiltrate on the left lung field by ultrasound. Chest x-ray is pending. Although the RV was visualized and shows no abnormality and its 0.[address] scan of the chest angiogram will be obtained as well. Most likely patient has sepsis and pneumonia and will be signed out to Dr. Thang Clark at the end of my shift. IV fluids as sepsis protocol 30 cc/kg were given as well as antibiotics after blood cultures were obtained. Last updated by Juancarlos Pichardo MD at 10/28/22 15:53 Discharge Plan Disposition Patient Disposition: Admit to [facility] Discharge Details Chief Complaint: GenMedical Clinical Impression: Hypomagnesemia, Generalized weakness, Elevated lactic acid level Primary Care Provider: Servando Young ED Provider: Thang Clark Home Meds and New Rx's Prescriptions: No Action albuterol sulfate [Ventolin HFA] 90 mcg/actuation HFA aerosol inhaler 2 puff IH Q6H PRN Patient Comments: pt states not taking 10/28/22 RL Biofreeze aerosol 1 ea topical PRN PRN Patient Comments: pt states not taking 10/28/22 RL fluticasone propion-salmeterol [Advair Diskus] 250-50 mcg/dose blister with device 1 inh IH BID Patient Comments: pt states not taking 10/28/22 RL erythromycin 5 mg/gram (0.5 %) ointment 1 applic OP DAILY Patient Comments: pt states not taking 10/28/22 RL ketoconazole 2 % cream 1 applic TP BID Patient Comments: pt states not taking 10/28/22 RL fluticasone propionate [Flonase Allergy Relief] 50 mcg/actuation spray,suspension 1 spray DAINA DAILY Patient Comments: pt states not taking 10/28/22 RL insulin glargine [Lantus U-100 Insulin] 100 unit/mL solution 35 unit SC DAILY amlodipine [Norvasc] 5 mg tablet 5 mg PO DAILY Patient Comments: pt states not taking 10/28/22 RL zinc oxide-white petrolatum 15-49 % ointment 1 applic TP BID PRN Patient Comments: pt states not taking 10/28/22 RL simvastatin 40 MG tablet 40 mg PO DAILY metformin 1,000 MG tablet 1,000 mg PO BID Patient Comments: pt states not taking 10/28/22 RL nitroglycerin [Nitrostat] 0.4 MG tablet, sublingual 0.4 mg Sublingual PRN Patient Comments: pt states not taking 10/28/22 RL aspirin 81 MG tablet,chewable 81 mg PO DAILY Patient Comments: pt states not taking 10/28/22 RL nystatin [Nystop] 60 GM powder 60 gm Topical BID Patient Comments: pt states not taking 10/28/22 RL Centrum Silver 1 EACH tablet 1 ea PO DAILY Patient Comments: pt states not taking 10/28/22 RL vitamin E succinate 100 UNIT tablet 100 unit PO DAILY Patient Comments: pt states not taking 10/28/22 RL Metoprolol Succinate [Toprol Xl] 50 MG TAB.ER.24H 50 mg PO DAILY Patient Comments: pt states not taking 10/28/22 RL sertraline 100 MG tablet 200 mg PO DAILY Patient Comments: pt states not taking 10/28/22 RL acetaminophen 325 mg tablet 650 mg PO Q4H PRN Patient Comments: pt states not taking 10/28/22 RL tramadol 50 mg tablet 50 mg PO Q6H PRN tizanidine 2 mg capsule 2 mg PO Q8H PRN Patient Comments: pt states not taking 10/28/22 RL duloxetine [Cymbalta] 30 mg Capsule,Delayed Release(Dr/Ec) 30 mg PO DAILY pregabalin [Lyrica] 100 mg Capsule 100 mg PO DAILY ferrous sulfate [FeroSul] 325 mg (65 mg iron) Tablet 325 mg PO DAILY Patient Comments: pt states not taking 10/28/22 RL colestipol 1 gram Tablet 2 g PO BID Patient Comments: pt states not taking 10/28/22 RL Eliquis 5 mg tablet 5 mg PO BID Qty: 73 0RF Rx Instructions: Take 10 mg po BID x 6.5 days then take 5 mg po BID oxycodone-acetaminophen 5-325 mg Tablet 1 tab PO Q4H PRN PRNQty: 20 0RF Patient Comments: pt states not taking 10/28/22 RL magnesium oxide 400 mg (241.3 mg magnesium) Tablet 800 mg PO BID Qty: 60 0RF Patient Comments: pt states not taking 10/28/22 RL omeprazole 20 mg Capsule,Delayed Release(Dr/Ec) 20 mg PO BID@ Qty: 60 0RF albuterol sulfate 90 mcg/actuation HFA aerosol inhaler 2 puff inhalation Q6H PRN (Reason: shortness of breath or wheezing) Qty: 6.7 0RF fluticasone propion-salmeterol 250-50 mcg/dose blister with device INHALATION
[2022-10-28] MEDS: MAGNESIUM SULFATE 2 GM/50 ML BAG IVPB ×2 (17:28→22:54)
[2022-10-28 17:42] LABS: Troponin I < 50 ng/L (<or=60)
[2022-10-28] MEDS: Normal Saline 1,000 ML 1850 ML IV (17:57)
[2022-10-28 18:30] LABS: Source Nasal/Nares
[2022-10-28 19:11] LABS: COVID-19 PCR Negative (Negative)
--- NOTE | 2022-10-28 20:31 | DI.VRAD_ITS ---
Addendum created by Walker Howard MD on 10/28/2022 8:30:39 PM EDT: THIS REPORT CONTAINS FINDINGS THAT MAY BE CRITICAL TO PATIENT CARE. The findings were verbally communicated via telephone conference with Dr. Clark at 8:30 PM EDT on 10/28/2022. The findings were acknowledged and understood. Initial report created on 10/28/2022 8:30:19 PM EDT: PROCEDURE INFORMATION: Exam: CTA Chest With Contrast Exam date and time: 10/28/2022 4:34 PM Age: 72 years old Clinical indication: Other: SOB, cp TECHNIQUE: Imaging protocol: Computed tomographic angiography of the chest with contrast. Exam focused on the arteries. 3D rendering (Not supervised by radiologist): MIP and/or 3D reconstructed images were created by the technologist. Radiation optimization: All CT scans at this facility use at least one of these dose optimization techniques: automated exposure control; mA and/or kV adjustment per patient size (includes targeted exams where dose is matched to clinical indication); or iterative reconstruction. Contrast material: OMNI 350; Contrast volume: 100 ml; Contrast route: INTRAVENOUS (IV); COMPARISON: CT CHEST PE CTA 11/05/2020 9:32 PM FINDINGS: Pulmonary arteries: There is adequate opacification of blood within the main pulmonary outflow tract, right and left pulmonary arteries and major lobar and segmental branches to both lungs. Pulmonary emboli identified involving a segmental branch to the medial segment of the middle lobe and a subsegmental branch to the right upper lobe on the prior study are no longer identified. Suspected acute pulmonary embolus identified as intraluminal hypodensity involving segmental/subsegmental branches to the right lower lobe (see images 65-71 from series 11). No other discrete pulmonary emboli are detected. Aorta: No evidence of thoracic aortic aneurysm or dissection. Lungs: Scattered linear interstitial densities are again seen about the periphery of both mid to lower lung zones with no new discrete parenchymal mass or consolidation detected. Pleural spaces: No pneumothorax or pleural effusion. Heart: Heart size is normal and there is no evidence of pericardial effusion or evidence of right heart strain. RV/LV ratio is estimated at 0.94. Lymph nodes: No mediastinal or hilar mass or adenopathy detected. Bones/joints: No acute osseous lesions are detected at thoracic levels. Soft tissues: Unremarkable. IMPRESSION: 1. Suspected acute pulmonary embolism identified involving segmental/subsegmental branches to the right lower lobe as above. No other acute pulmonary emboli are detected and there is no evidence of pericardial effusion or right heart strain. 2. Suspected underlying interstitial disease evident as above with no new parenchymal mass or consolidation detected. Dictated and Authenticated by: Walker Howard MD. Ordering:ANTIONE Bauer MD
[2022-10-28 20:57] LABS: Lab Add On Test DONE
[2022-10-28] MEDS: Enoxaparin 100 MG/ML SYR SC (21:06)
--- NOTE | 2022-10-28 21:20 | DI.RAD_ITS ---
Exam(s) XR CERVICAL SPINE COMP 4-5V EXAM: XR CERVICAL SPINE COMP 4-5V CLINICAL HISTORY: BUE weakness, neck pain. TECHNIQUE: 2D digital imaging was performed. COMPARISON: No exams were available for comparison FINDINGS: Six views No evidence of obvious acute fracture, listhesis, nor offset of the spinal laminar line. Multilevel chronic degenerative disc disease with multilevel disc space narrowing and anterior osteophytes. Low er 2 levels are difficult to assess because of body habitus. There are multilevel degenerative sterling es in the facet joints. There are no cervical ribs. Vascular calcification at the left carotid bifurcation noted indicating atherosclerotic involvement. IMPRESSION: Multilevel degenerative disc disease. No obvious fractures. If clinically indicated follow-up CT sc an can be performed. DATA REPOSITORY: RADIATION DOSE DELIVERED:
[2022-10-28 21:39] LABS: Procalcitonin < 0.1 ng/mL
--- NOTE | 2022-10-28 21:48 | DI.VRAD_ITS ---
PROCEDURE INFORMATION: Exam: XR Spine; Cervical Exam date and time: 10/28/2022 9:22 PM Age: 72 years old Clinical indication: Symptoms: Neck pain TECHNIQUE: Imaging protocol: XR of the spine. Exam focused on the cervical spine. Views: 1 view. COMPARISON: OT XR [facility] CERVICAL SP 2V 04/13/2019 10:21 AM FINDINGS: Bones/joints: There is inadequate visualization of the cervicothoracic junction on the available lateral views with no gross abnormality seen at C7-T1 on available oblique images. Changes of facet arthropathy are seen bilaterally throughout mid to lower cervical levels and appear more advanced on the right. No dominant fracture detected. Soft tissues: Prevertebral soft tissues are unremarkable. IMPRESSION: Cervical spondylosis with no acute cervical fracture detected. Consider MRI for further evaluation. Dictated and Authenticated by: Walker Howard MD. Ordering:NAYE Moulton MD
--- NOTE | 2022-10-28 22:14 | TELEP.MEDR_ITS ---
Date of service: 10/28/22 Time of Service: 22:14 Telepharmacy Home Med Rec Allergies Allergies: adhesive tape Allergy (Intermediate, Unverified 10/28/22 13:48) RASH Sulfa (Sulfonamide Antibiotics) Allergy (Mild, Unverified 10/28/22 13:48) Skin Rash aspirin Adverse Reaction (Intermediate, Unverified 10/28/22 13:48) Nausea Interview Person Interviewed: * Patient Quality Quality of Interview/Accuracy of Medication List: Excellent Sources Sources used to compile medication list: [facility] Medication List, Patient List and [employer] Changes made to Home Medication List: ADDITIONS: * none DELETIONS: * Amlodipine * Aspirin * Tylenol * Centrum Silver * Colestipol * Ferrous Sulfate * Flonase * Ketoconazole * Magnesium Oxide * Metformin * Toprol XL * NGT * Percocet * Sertraline * Tizanidine * Vitamin E * Zinc Oxide CHANGES: * Omeprazole 40mg PO daily (changed from 20mg PO BID) * Cymbalta 30mg PO BID (changed from 30mg PO daily) * Lyrica 100mg PO BID (chaned from 100mg PO daily) * Lantus 36units SC QHS (changed from 35 units SC QAM) * Tramadol 50mg PO Q12H PRN pain (changed from 50mg Q6H PRN) Additional Notes Additional Notes: * none Recommended Changes Recommended Changes(reason for recommendation): * none Attestation: The home medication list is now updated to the best of my knowledge and is ready to be reconciled by the provider. Please contact the TelePharmacy Medication Reconciliation Pharmacist at for any questions.
--- NOTE | 2022-10-28 22:14 | TELEP.MEDREC ---
Date of service: 10/28/22 Time of Service: 22:14 Telepharmacy Home Med Rec Allergies Allergies: adhesive tape Allergy (Intermediate, Unverified 10/28/22 13:48) RASH Sulfa (Sulfonamide Antibiotics) Allergy (Mild, Unverified 10/28/22 13:48) Skin Rash aspirin Adverse Reaction (Intermediate, Unverified 10/28/22 13:48) Nausea Interview Person Interviewed: Patient Quality Quality of Interview/Accuracy of Medication List: Excellent Sources Sources used to compile medication list: [employer] Medication List, Patient List and [employer] Changes made to Home Medication List: ADDITIONS: none DELETIONS: Amlodipine Aspirin Tylenol Centrum Silver Colestipol Ferrous Sulfate Flonase Ketoconazole Magnesium Oxide Metformin Toprol XL NGT Percocet Sertraline Tizanidine Vitamin E Zinc Oxide CHANGES: Omeprazole 40mg PO daily (changed from 20mg PO BID) Cymbalta 30mg PO BID (changed from 30mg PO daily) Lyrica 100mg PO BID (chaned from 100mg PO daily) Lantus 36units SC QHS (changed from 35 units SC QAM) Tramadol 50mg PO Q12H PRN pain (changed from 50mg Q6H PRN) Additional Notes Additional Notes: none Recommended Changes Recommended Changes(reason for recommendation): none Attestation: The home medication list is now updated to the best of my knowledge and is ready to be reconciled by the provider. Please contact the [facility] Medication Reconciliation Pharmacist at for any questions.
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
[2022-10-28] MEDS: Simvastatin 40 MG TAB PO (23:34)
[2022-10-28] MEDS: Pregabalin 100 MG CAP PO (23:34)
[2022-10-28] MEDS: DULoxetine 30 MG CAP PO (23:35)
[2022-10-28] MEDS: Insulin Aspart 300 UNITS/3 ML PEN SC (23:41)
[2022-10-28] MEDS: Insulin Glargine 300 UNITS/3 ML PEN 37 UNITS SC (23:42)
[2022-10-28] MEDS: traMADol 50 MG TAB PO (23:53)
[2022-10-29] VITALS (16 sets, daily range): BP systolic 114–136; BP diastolic 69–83; PULSE 59–105; RESP 14–25; TEMP 35.9–37.8; O2SAT 88–99
--- NOTE | 2022-10-29 | DI.US_ITS ---
Exam(s) US EXTREMITY VENOUS BI EXAM: US EXTREMITY VENOUS BI CLINICAL HISTORY: acute PE TECHNIQUE: Grayscale, color, and doppler imaging of the deep venous system of both lower extremities was performed. COMPARISON: US US ECHOCARDIOGRAM from 10/29/2022 FINDINGS: There is no evidence of intraluminal thrombus and there is normal compression and augmentation demons trated within the common femoral veins, femoral veins, and popliteal veins of both lower extremities. In the calves the interrogated veins also exhibit normal compression/ augmentation properties. The greater saphenous veins also appear patent as do the saphenofemoral junctions bilaterally.. IMPRESSION: 1. No ultrasound evidence of DVT in either lower extremity. DATA REPOSITORY:
[2022-10-29] MEDS: Acetaminophen 325 MG TAB PO ×2 (00:54→07:36)
--- NOTE | 2022-10-29 01:15 | RT.EKG_ITS ---
APPROVED REPORT Exam: Resting ECG Reason for Exam: EKG Patient Location: I HR:70 bpm ECG Measurements Heart Rate 70 AXIS CO [id number] P [id number] QRSd 95 QRS 6 QT 532 T 48 QTc 575 Conclusion Atrial fibrillation...? atrial activity Borderline low voltage, extremity leads...all extremity leads <0.6mV Prolonged QT interval...QTc >500mS
[2022-10-29 02:18] LABS: Troponin I < 50 ng/L (<or=60)
[2022-10-29 06:21] LABS: Abs Immature Grans 0.02 10^3/uL (0.0-0.06); Absolute Basophil Count 0.04 10^3/uL (0.0-0.2); Absolute Eosinophil Count 0.13 10^3/uL (0.0-0.7); Absolute Lymphocyte Count 2.94 10^3/uL (1.2-3.4); Absolute Monocyte Count 0.74 10^3/uL (0.1-0.8); Absolute Neutrophil Count 4.08 10^3/uL (1.2-6.7); Basophils % 0.5; Eosinophils % 1.6; HCT 31.9 % (36.0-46.0); HGB 10.3 g/dL (11.2-15.7); Immature Grans % 0.3; MCH 28.6 pg (27.0-33.0); MCHC 32.3 % (32.0-36.0); MCV 89 fL (80-95); MPV 11.3 fL (8.0-11.0); Monocytes % 9.3; Neutrophils % 51.3; Platelet Count 157 10^3/uL (130-400); RDW 14.2 % (11.7-14.6); RDW-SD 45.9 fL; WBC 7.95 10^3/uL (4.4-10.8)
[2022-10-29 06:47] LABS: Anion Gap 5.8 mmol/L (3-11); BUN 18 mg/dL (7-18); CO2 30.2 mmol/L (21.0-32.0); Calcium 9.1 mg/dL (8.5-10.1); Chloride 102 mmol/L (98-107); Estimated GFR 59.49 (mL/min/1.73m2); Glucose 215 mg/dL (74-106); Magnesium 1.9 mg/dL (1.8-2.4); Potassium 3.8 mmol/L (3.5-5.1); Sodium 138 mmol/L (136-145); TSH (W/Ref FT4) 1.26 uIU/mL (0.36-3.74); Troponin I < 50 ng/L (<or=60)
[2022-10-29] MEDS: Normal Saline Flush 10 ML SYR IVP ×2 (07:37→07:56)
[2022-10-29] MEDS: Magnesium Chloride 64 MG TABCR 128 MG PO ×2 (07:55→20:51)
[2022-10-29] MEDS: Insulin Aspart 300 UNITS/3 ML PEN SC ×3 (07:55→20:52)
[2022-10-29] MEDS: Omeprazole 20 MG CAPCR 40 MG PO (07:55)
[2022-10-29] MEDS: Pregabalin 100 MG CAP PO ×2 (07:55→20:51)
[2022-10-29] MEDS: DULoxetine 30 MG CAP PO ×2 (07:55→20:51)
[2022-10-29] MEDS: ALPRAZolam 0.25 MG TAB PO (08:21)
[2022-10-29] MEDS: Enoxaparin 100 MG/ML SYR SC ×2 (08:22→20:52)
--- NOTE | 2022-10-29 09:05 | NUR.NOTE ---
Nursing Note: At approximately 0900 on 10/29/22, this RN returned a call from Minna Michael (states she is pt.'s daughter - on HIPAA). RN updated pt.'s daughter regarding pt.'s mentation, VS, pain level and pain management techniques, head to toe assessment, specifically respiratory assessment, and plan of care, including the multiple diagnostic imaging exams (MRI/ECHO/BLE US) and the exercise oximetry assessment. Pt.'s daughter verbalized understanding and presented with a few questions that were answered. Pt.'s daughter sounded tearful. RN tried to reassure the pt.'s daughter and encouraged her to call back with any concerns/questions. Call then ended.
--- NOTE | 2022-10-29 09:20 | DI.MRI_ITS ---
Exam(s) MR CERVICAL SPINE WO EXAM: MR CERVICAL SPINE WO CLINICAL HISTORY: neck pain, BUE weakness TECHNIQUE: Multiplanar multisequence MRI of the cervical spine was performed without intravenous con trast. COMPARISON: Recent plain films reviewed. FINDINGS: CERVICOMEDULLARY JUNCTION: Intact with no evidence of cerebellar tonsillar ectopia. No obvious abnor mality of the odontoid process. No evidence of Chiari 1 malformation. CERVICAL SPINAL CORD: There is no abnormal signal in the cervical spinal cord and no evidence of foca l cord atrophy nor focal cord swelling. OSSEOUS: Disc space narrowing and anterior osteophytes evident at C4-5, C5-6 levels. Mild height los s C5 and C6 vertebral bodies noted which appears degenerative. There are no acute cervical fractures evident. No significant osseous lesions in the cervical vertebrae. INDIVIDUAL LEVELS: C2-3: Mild annular bulging. This indents the anterior thecal sac but not the spinal cord. Canal dim ensions are lower normal. Prominent facet arthropathy evident on the right side. Mild right-sided f oraminal stenosis. Milder facet arthropathy on the left side. Mild left foraminal stenosis. C3-4: Mild annular bulging. No dominant disc herniation. Central canal dimensions lower normal. Th ere is significant facet arthropathy on the right side. Appears to be partial fusion of this facet j oints at this level. There is moderate right-sided foraminal stenosis at this level. Milder facet a rthropathy on the left side. No significant foraminal stenosis on the left side at this level. C4-5: Advanced chronic disc space narrowing and large anterior osteophytes are noted at this level. Posteriorly there is relatively symmetrical broad annular bulging which indents the thecal sac but no t the cord. Central canal dimensions are lower normal. There is significant advanced bilateral face t arthropathy at this level on the right side. Moderate right-sided foraminal stenosis. On the left side at this level there is no significant foraminal stenosis. C5-6: This level also exhibits chronic advanced disc space narrowing and prominent anterior osteophyt es. Posteriorly there is broad annular bulging and posterior osteophytic ridging. There is moderate central canal stenosis. The AP measurement of the canal is 7 mm. Very subtle T2 signal in the cord noted at this level. There also bilateral Luschka joint osteophytes at this level. Facet joints ex hibit some degenerative change. Mild foraminal stenosis on the right side. Mild-moderate foraminal stenosis on the left side. C6-7: This level exhibits mild-moderate disc space narrowing. There is posterior annular bulging and osseous ridging. Also bilateral Luschka joint osteophytes. There is mild central canal stenosis. Facet joints exhibit mild degenerative changes at this level. There is mild-moderate bilateral pratima inal stenosis this level. C7-T1: No disc herniation nor central canal stenosis. Mild facet joint degenerative changes. No sign ificant foraminal stenosis on either side at this level. IMPRESSION: 1. Multilevel chronic degenerative disc disease as described per individual level above. 2. There is moderate central spinal canal stenosis at C5-6 with very subtle signal abnormality in the spinal cord at this level consistent with probable myelitis related to the degenerative changes 3. Multilevel facet arthropathy and multilevel Luschka joint osteophytes. There is an element of for aminal stenosis at multiple levels as detailed above. 4. No acute fractures evident no significant osseous lesions in cervical vertebrae. DATA REPOSITORY:
--- NOTE | 2022-10-29 09:43 | INITIAL_ITS ---
Date of service: 10/29/22 Time of Service: 09:43 Care Management Initial Assmt Initial Assessment REASON FOR HOSPITALIZATION:: PE PREVIOUS FUNCTIONAL STATUS/SOCIAL/FAMILY SUPPORTS:: Enedelia lives in [place], [place]. with her dear friend Kirk. They have been alone together for 5 years and before that his brother lived with them. Enedelia has 4 children. Two of her children live in [facility], one is in [place] and one is in [place], [place]. 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 She stated that she continues to enjoy cooking. Enedelia has 13 grandchildren and great grandchildren. She is independent at baseline and continues to drive although she does not currently own a car. CURRENT FUNCTIONAL STATUS:: Enedelia was lying in bed when CM met with her. She had her eyes closed but was willing to engage in conversation. Enedelia has had several tests today including an echocardiogram, an MRI of her spine and Ultrasound of her legs to rule out DVTs. She shared that she is still having pain but does not anticipate the need for any additional services when discharged. ADVANCE DIRECTIVES:: ON file. Minna Rodriguez listed as [facility] Has patient been provided with info about the portal/API?: Yes Did the patient sign up for the portal?: No CODE STATUS:: DNR/DNI INSURANCE COVERAGE / FINANCIAL ISSUES:: BC/BS Medicare Replacement ([facility] [employer]) CURRENT HOME/COMMUNITY SERVICES/EQUIPMENT:: cane and walker PRIMARY CARE PHYSICIAN:: Was Servando Young at [facility]. Now has a new PCP in that practice but does not know her name. POTENTIAL DISCHARGE NEEDS:: Follow up with PCP and plan of care PATIENT/FAMILY EDUCATION NEEDS:: Review of discharge instructions, medications, follow up plan, limitations, activity, discuss Ask Me Three TRANSPORTATION:: via private vehicle PLAN:: Anticipate Enedelia will return home when medically cleared. She will follow up with her PCP and plan of care and transport with family. CM will follow and support discharge planning concerns. PFSH All Active Problems (Updated 10/28/22 @ 23:14 by Saige Keating MD) Hypoxia (Acute) Discharge planning issues (Acute) DVT prophylaxis (Acute) Upper extremity weakness (Acute) Neck pain (Acute) Hypomagnesemia (Acute) Generalized weakness (Acute) Elevated lactic acid level (Acute) Pulmonary emboli (Acute) Lumbosacral radiculitis (Acute) Medical History Anxiety Asthma Breast cancer CAD (coronary artery disease) Cataract Chronic pain Colonic polyp Constipation Depression Diabetes Hemorrhoid HTN (hypertension) Hypercholesterolemia Obesity Prurigo nodularis Sigmoid diverticulosis Surgical History Abdominal hysterectomy Appendectomy Bilateral salpingectomy with oophorectomy Biopsy of breast Cholecystectomy Colonoscopy - MAC Extraction of cataract PORT PLACEMENT port removal Tonsillectomy and adenoidectomy Family History Mother No problems noted. Father Diabetes Sister No problems noted. Sister No problems noted. Sister No problems noted. Brother No problems noted. Brother No problems noted. Son No problems noted. Son No problems noted. Daughter No problems noted. Daughter No problems noted. Maternal Aunt Ovarian cancer Social History Smoking/Tobacco Use Status: Former Tobacco Use Smoking risk assessment performed?: Yes Alcohol Intake: never Drug use: Never Substance use type: does not use Housing: house Do you feel safe at home: Yes Do you feel safe in your relationship?: Yes
[2022-10-29 10:00] LABS: Ferritin 144 ng/mL (8-252); Vitamin B12 275 pg/mL (193-986)
[2022-10-29 10:06] LABS: Folate > 20.0 ng/mL (8.6-20.0)
--- NOTE | 2022-10-29 10:46 | DM INPTCON_ITS ---
Date of service: 10/29/22 Time of Service: 10:46 Diabetes Inpatient Consult Reason for Visit: routine diabetes education consult DESCRIPTION/ASSESSMENT: Enedelia admitted with Hypoxia, htpomagnesemia, weakness and elevated lactic acid levels. Pt has Hx of DM - relays that she takes HS lantus at home and also meformin (although I don't sese this on her home med list). Ordered for 37 units this admit as well as sensitive sliding scale novolog for mealtime insu chaitanya. No current A1C available to review - fast glucose 215 this morning, 331 on admission. Heart healthy/ CHO consistent diet order is appropriate. Low Mg being repleted. Took 75% of breakfast this morning and asked for a Boost supplement drink during my assessment (pt given strawberry glucerna). Pt denies significant food allergies/gnosticism food needs. Current BMI of 38.3 consistent with stage III obesity. Estimated nutrition needs : 1859kcals ([id number]), 95g protein (1g/kg of adjusted body weight), and 1859mL fluid (1mL/required kcal) INTERVENTION: Will provide regular meals according to ordered diet therapy and consistency. Will monitor labs and weight changes for any indication of change in nutrition needs. As pt just admitted <24 hours ago, will delay offering diabetes education. Pt made aware to contact me if any questions on diabetes meal planning. Suggest getting a1C lab value to better assess recent glucose control at home. PLAN: will plan on following up prior to discharge to offer outpatient nutrition counseling. Time Spent in Nutritional Counseling and Treatment: 15 minutes
[2022-10-29 10:56] LABS: Iron 17 ug/dL (50-170); Total Iron Binding Capacity 226 ug/dL (250-450); Transferrin Sat 8 % (15-50)
--- NOTE | 2022-10-29 11:08 | PT.INIE ---
PT Notes Visit Reasons: Hypomagnesemia,?hypoxia/PE, generalized weakness Physical Therapy Inpatient Initial Evaluation Date: 10/29/2022 Referring Doctor: Saige Keating MD PT Orders: PT CONSULT: Limited ability Precautions: Fall. Standard. Activity as tolerated. L hinged knee orthosis on L when OOB. Patient Profile/Admitting Diagnsoses: Enedelia is a 72-year-old female admitted for management of pulmonary embolism, cervical spondylosis, hypoxia, hypomagnesemia, elevated lactate acid neck pain, weakness, DM, and generalized weakness.osis: PMHX: All Active Problems?(Updated 10/28/22 @ 23:14 by Saige Keating MD) Hypoxia (Acute) Discharge planning issues (Acute) DVT prophylaxis (Acute) Upper extremity weakness (Acute) Neck pain (Acute) Hypomagnesemia (Acute) Generalized weakness (Acute) Elevated lactic acid level (Acute) Pulmonary emboli (Acute) Lumbosacral radiculitis (Acute) Medical History? Anxiety Asthma Breast cancer CAD (coronary artery disease) Cataract Chronic pain Colonic polyp Constipation Depression Diabetes Hemorrhoid HTN (hypertension) Hypercholesterolemia Obesity Prurigo nodularis Sigmoid diverticulosis Surgical History? Abdominal hysterectomy Appendectomy Bilateral salpingectomy with oophorectomy Biopsy of breast Cholecystectomy Colonoscopy - MAC Extraction of cataract PORT PLACEMENT port removal Tonsillectomy and adenoidectomy Social History/Home Situation: Lives in a private home in [place] with a ramp to enter. Has a friend/caregiver helps out with meal preparation and dishwashing. Patient is modified independent with self-care ADLs and transfers/ambulation using front-wheeled walker at baseline. Manages laundry on her own. Visited her daughter's house in [place] for the holiday when her symptoms began. Equipment Owned/DME: FWW Subjective: Still hurting in the neck and in between her shoulder blades but of much less intensity. States that her left knee usually gives waywhich caused her to fall last month. She is wondering if she can have a brace for it. Objective: General Observation: Supine in bed. Jst came back from testing downstairs. Swelling in L LE worse. Telemetry monitoring in place. Mental Status: Alert and oriented as to person, place, time, and purpose. Able to pay attention, focus, and respond appropriately. Pain: 1-2/10 in neck, B shoulders, between shoulder blades and low back Vital Signs: Closely monitored by nursing staff ROM: Right Upper Extremity: Shoulder Flexion up to 80 degress only actively. Shoulder abduction up to 70 degress only actively. Elbow flexion WFL. Wrist flexion WFL. Functional opening and closing of hand WFL. Left Upper Extremity: Shoulder Flexion up to 100 degress only actively. Shoulder abduction up to 90 degress only actively. Elbow flexion WFL. Wrist flexion WFL. Functional opening and closing of hand WFL. Right Lower Extremity: Hip flexion WFL. Hip abduction WFL. Knee flexion WFL. Ankle dorsiflexion WFL. Ankle plantarflexion WFL. Left Lower Extremity: Hip flexion WFL. Hip abduction WFL. Knee flexion 20 degrees to 90 degrees. Knee extension -20 degrees. Ankle dorsiflexion WFL. Ankle plantarflexion WFL. Strength: Right Upper Extremity: Shoulder flexors 3-/5. Shoulder abductors 3-/5. Elbow flexors 4-/5. Elbow extensors 4-/5. Engineering Documentation Specialist strong. Left Upper Extremity: Shoulder flexors 3-/5. Shoulder abductors 3-/5. Elbow flexors 4-/5. Elbow extensors 4-/5. Engineering Documentation Specialist strong. Right Lower Extremity: Hip flexors 3+/5. Hip abductors 3+/5. Knee flexors 4-/5. Knee extensors 3+/5. Ankle dorsiflexors 4-/5. Ankle plantarflexors 4-/5. Left Lower Extremity: Hip flexors 3+/5. Hip abductors 3+/5. Knee flexors 3-/5. Knee extensors 3-/5. Ankle dorsiflexors 4-/5. Ankle plantarflexors 4-/5. Normal Bed Mobility/Transfers: Rolling stand by assist Supine to sit minimal assist with HOB at 30 degrees Sit to supine stand by assist with cues to hold onto grab bar as needed for support Sit to stand contact guard assist with cues provided for hand placement and walker management Stand to sit contact guard assist with cues provided for hand placement and walker management Gait: Instructed patient with level surface ambulation of 100 feet requiring contact assist. Margaux decreased. Step height decreased. Step length decreased. Feels much secure with L hinged knee orthosis on L. Oxygen saturation above 90% on room air throughout. RT staff along with PT to assess for patient's ventilatory function. THERA ACT: Provided guidance with correct execution of exercises below - Gluteal Sets - 1 x daily - 7 x weekly - 1 sets - 10 reps - 5 hold - Supine Heel Slide - 1 x daily - 7 x weekly - 1 sets - 10 reps - 5 hold - Supine Ankle Pumps - 1 x daily - 7 x weekly - 1 sets - 10 reps - 5 hold - Shoulder shrugs - 1 x daily - 7 x weekly - 1 sets - 10 reps - 5 hold - Seated Long Arc Quad - 1 x daily - 7 x weekly - 1 sets - 10 reps - 5 hold Ortho hip protocol Ortho Balance: Static Sitting: Normal Dynamic Sitting: Good Static Standing: Fair Dynamic Standing: Fair Special Tests: Mobility Limitations Standardized Measure [facility] AM-PAC 6 clicks Basic Mobility Inpatient Short Form: Raw Score: 19 CMS Score: 42% deficit 4-stage balance test: Unable to maintain all 4 positions for 10 seconds indicating high fall risk without use of FWW Informed Consent/Education: Patient was instructed in purpose of PT consult and plan of care. Agreeable to proceed with established PT POC to achieve personal goals. Assessment: Provided with hinged knee brace on the L side with favorable result and increased ambulation distance. Patient presents with clinical signs and symptoms consistent with current/admitting diagnoses that have resulted to mobility limitations, gait instability, generalized weakness, and overall ADL decline as demonstrated by the following impairment level findings: 1. Decreased strength to B UE/LE major muscle groups 2. Impaired sitting/standing balance 3. Impaired activity tolerance 4. Limitation of joint range of motion in B shoulders and L knee 5. Shortness of breath 6. Swelling in L LE Impairments are contributing to the following functional limitations: 1. Decline in bed mobility skills 2. Decline in transfer skills 3. Difficulty with ambulation without assistive device and physical assistance 4. Increased completion time for mobility ADL performance 5. Increased risk for falls 6. Difficulty with managing steps alone safely Patient is assessed as a 36595 moderate complexity based on the following: History: 72-year-old female with past medical history as indicated above Examination: Demonstrable impairment in strength, balance, and mobility level with underlying impairments and functional limitations as exhibited above as well as deficit score of 42%% utilizing the [facility] Mobility Inpatient Short Form Presentation: Evolving Decision Makin moderate complexity Goals: Goals X1 week 1. Supine-Sit independent 2. Sit-Supine independent 3. Sit-Stand independent 4. Stand-Sit independent with FWW 5. Bed-Chair independent with FWW 6. Chair-Bed independent with FWW 7. Independent gait on level surface with use of FWW for at least 300 feet without report of pain nor dyspnea 8. Independent with home exercise program 9. Good static and dynamic standing balance/tolerance Plan of Care/Treatment Plan: 1-2x/day, 7 days/week x 1 week. Plan of care has been reviewed with the PRINTING AGENT providing the service under Physical Therapy direction. Initiate Physical Therapy intervention for pain management as needed, strengthening, bed mobility, transfers, gait, stairs, balance training, and use of assistive device. DISCHARGE RECOMMENDATIONS: [] Home with no services [] [X] Home with services. Patient will benefit from home health PT services in order to progress mobility level using least restrictive assistive ambulatory device, assess home safety, identify additional equipment needs, and establish a functional maintenance program that will increase ability of patient to remain at home. [] Home with outpatient PT [] [] SNF for continued rehabilitation [] [] Nursing Home Care [] [] SNF versus LTC based on ability to participate and progress [] TREATMENT CODE/TIME: 58691 x 20 minutes (1 unit), 36741 x 24 minutes (2 units) beginning at 10:19 AM. Thank you for the opportunity to participate in the care of this patient. Caryn Hernandez PT, DPT, CLT [facility] [place], [place]
--- NOTE | 2022-10-29 12:35 | DI.US_ITS ---
APPROVED REPORT EXAM: Comprehensive 2D, Doppler, and color-flow Echocardiogram Patient Location: In-Patient Room/Bed: [facility] Processing Lead: John Gaxiola RDCS (AE) Indications: acute PE Other Information Study Quality: Fair. Technically limited study due to body habitus, inability to position patient, pa tient unable to follow breathing instructions. Conclusion Normal left ventricular wall thickness and chamber size. Ejection fraction is 55%. Wall motion is n ormal Normal right ventricular size and systolic function Both atria are normal in size The aortic valve is sclerotic and trileaflet without stenosis or regurgitation Mitral annular calcification, trace mitral regurgitation Normal tricuspid valve with trace regurgitation. Estimated right ventricular systolic pressure is 18 mmHg Wall motion Left Ventricle Left ventricle is borderline dilated. The left ventricular systolic function is normal. The left vent ricular ejection fraction is within the normal range. There is normal left ventricular wall thickness . There is normal LV segmental wall motion. There is no ventricular septal defect visualized. LVEF is 55%. Right Ventricle The right ventricle is normal size. The right ventricular systolic function is grossly normal. The RV SP is 17.7 mmHg. Atria The left atrium size is normal. The right atrium size is normal. The interatrial septum is intact wit h no evidence for an atrial septal defect. Aortic Valve The Aortic valve is sclerotic. Aortic valve is trileaflet. There is no aortic valvular stenosis. No a ortic regurgitation is present. Mitral Valve Mild mitral annular calcification. No evidence of mitral valve stenosis. Trace mitral regurgitation. Tricuspid Valve The tricuspid valve is normal in structure. There is no tricuspid valve stenosis. Trace tricuspid reg urgitation. Pulmonic Valve The pulmonary valve is normal in structure. There is no pulmonic valvular stenosis. There is no pulmo toni valvular regurgitation. Great Vessels The aortic root is normal in size. The ascending aorta is normal in size. Aortic arch is not well vis ualized. IVC is normal in size and collapses >50% with inspiration. Pericardium There is no pericardial effusion. 2D Dimensions IVSD d PLAX 0.87 cm F: 0.6-1.0 Ao Root d 2.90 cm F: 2.7 - 3.3 LVPW d PLAX 0.86 cm F: 0.6 - 1.0 Ao Asc Diam d 2.98 cm F: 2.3 - 3.1 LVID d PLAX 5.32 cm F: 3.8 - 5.2 LVDs 3.95 cm F: 2.2 - 3.5 LV EF Teichholz 50.2 % FS 25.71 % LV EDV (Teich) 136.7 mL LV ESV (Teich) 68.1 mL Stroke Vol Index (Teich) 35.36 Auto EF LV EDV A4C 96.3 mL LV EDV A2C 90.1 mL LV EDV BP LV ESV A4C 41.0 mL LV ESV A2C 43.5 mL LV ESV BP LVEF(%) A4C 57.4 % LVEF(%) A2C 51.8 % LVEF(%) BP LV SV A4C 55.2 ml LV SV A2C 46.7 ml LV SV BP LV CO A4C 2.9 L/min LV CO A2C 2.8 L/min LV CO BP HR A4C 53.26 BPM HR A2C 60.30 BPM LV EDV Index (BP) LA Volume LA Length A4C 5.9 cm LA Length A2C LA Area A4C s 16.11 cm2 LA Area A2C s LA Vol A4C A-L 37.40 mL LA Vol A2C A-L LA Vol Biplane A-L LA Vol A4C MOD 34.3 mL LA Vol A2C MOD LA Vol BP MOD RA Volume RA Area A4C 7.0 cm2 RA ESV A4C (A-L) 9.4mL RA Vol/BSA A4C A-L RA Length A4C 4.5 cm RA ESV A4C (MOD) 8.9mL LV Diastology MV E' medial 0.061 (>0.07 m/s) MV E Vmax 0.75 (0.4-1.3 m/s) MV E/E' MED 12.37 (<14) MV A Vmax 0.80 (0.4-1.3 m/s) MV E' lateral 0.064 (>0.1 m/s) E/A Ratio 0.9 MV E/E' LAT 11.77 (<14) MV E' Average 0.063 m/s MV E/E'(average) 12.06 Aortic Valve AoV Vmax 1.90 m/s LVOT Vmax 1.17 m/s AoV Peak Grad 14.5 mmHg LVOT Peak Grad 5.5 mmHg AoV Area (Vmax) 1.56 cm2 LVOT VTI 0.279 m AoV VTI 0.434 m LVOT Mean Grad 3.5 mmHg AoV Mean Sawyer. 1.23 m/s LVOT SV 70.51 mL AoV Mean Grad 7.1 mmHg LVOT Diam s 1.75 cm AoV Area (VTI) 1.63 cm2 Velocity Ratio 0.62 Mitral Valve MV DT 226 (160-240 msec) Pulmonary Valve PV Vmax 0.96 (0.5-1.5 m/s) RVOT Vmax 0.65 m/s PV Peak Grad 3.7 mmHg RVOT Peak Gr. 1.7 mmHg PV Mean Sawyer 0.66 m/s RVOT VTI 0.130 m PV Mean Grad 1.9 mmHg RVOT Mean Gr. 0.8 mmHg Tricuspid Valve RA Pressure 3.00 mmHg TR Vmax 1.92 m/s TR Peak Grad 14.7 mmHg RVSP (TR) 17.7 mmHg
--- NOTE | 2022-10-29 13:47 | PTTR_ITS ---
PT Notes Visit Reasons: Hypomagnesemia,?hypoxia/PE, generalized weakness Inpatient Physical Therapy Treatment Note [facility] Date: 10/29/2022 PRECAUTIONS: Fall. Activity as tolerated. L knee hinged knee brace on when OOB. SUBJECTIVE: Was sleeping but agreeable to working with PT. Reports good stanility from using L knee brace. Needed 3 standing rests due to shortness of breath. OBJECTIVE: Telemetery monitoring in place. ?Swelling noted in L LE. ? PAIN: Generalized chronic pain in neck, low back and in between shoulders that minimally limited patient's independence with mobility ADL performance VITALS: ? Pre-Treatment: Oxygen saturation of 97% at rest on RA ? Post-Treatment: Oxygen saturation of 97% at rest on RA ??? Therapeutic Activities ([id number]): Direct one-on-one instruction in dynamic activities to improve functional performance during bed mobility, transfers, and ambulation: ? BED MOBILITY/TRANSFERS:? Rolling stand by assist Supine to sit minimal assist with HOB at 30 degrees Sit to supine stand by assist with cues to hold onto grab bar as needed for support Sit to stand contact guard assist with cues provided for hand placement and walker management Stand to sit contact guard assist with cues provided for hand placement and walker management Provided skilled cues and instruction on performance and technique throughout. GAIT: [X] employing an assistive device [X] modified weight-bearing status [X] movement sequencing [X] turning and movement with proper form [X] Provided verbal cues for equipment management and technique [] Provided instruction in gait pattern [X] Patient education regarding pacing and breathing techniques to maximize activity tolerance? Assistive Device: FWW? Weight bearing: FWB Assist: CGA ? Distance:? 20 feet + 150 feet ? Deviation: Decreased sonido. SOB, needing 3-4 standing rests to minimize fatigue ? STAIRS: Not done for this session. Patient has a ramp to get into her house. ? Therapeutic Exercises (56361z[1]): Direct one-on-one instruction in therapeutic exercises to develop strength, endurance, range of motion and flexibility. - Gluteal Sets? - 1 x daily - 7 x weekly - 1 sets - 10 reps - 5 hold - Supine Heel Slide? - 1 x daily - 7 x weekly - 1 sets - 10 reps - 5 hold - Supine Ankle Pumps? - 1 x daily - 7 x weekly - 1 sets - 10 reps - 5 hold - Shoulder shrugs - 1 x daily - 7 x weekly - 1 sets - 10 reps - 5 hold - Seated Long Arc Quad? - 1 x daily - 7 x weekly - 1 sets - 10 reps - 5 hold Ortho hip protocol Ortho? ASSESSMENT:? Responding favorably to sessions thus far. Gets short of breath although oxygen saturation seems to be staying within normal limits even with activity. Patient was able to walk around elevator loop without need for oxygen with saturation levels staying above 95%. Patient will continue to require functional mobility training to reach modified independent level with FWW, optimize balance, and to regain prior level of strength. PLAN: Continue with 2x/day for the next 2 weeks to achieve PT POC. DISCHARGE RECOMMENDATIONS: [] ? Home with no services [] [X] ? Home with services.? Patient will benefit from home health PT services in order to progress mobility level using least restrictive assistive ambulatory device, assess home safety, identify additional equipment needs, and establish a functional maintenance program that will increase ability of patient to remain at home. [] ? Home with outpatient PT [] [] ? SNF for continued rehabilitation [] [] ? Detention Deputy Care [] [] ? SNF versus LTC based on ability to participate and progress [] TREATMENT CODE/TIME: 9753 x 15 minutes (1 unit),? 18879 x 13 minutes (1 units) beginning at 13:13 PM.
--- NOTE | 2022-10-29 14:21 | PGE_ITS ---
Date of Service Date of service: 10/29/22 Time of Service: 14:21 Assessment and Plan Assessment and plan (1) Pulmonary emboli: Status: Acute Assessment and plan: Present on admission. Acute/recurrent - stopped Apixaban in February - she does not know why she stopped taking it Treat with enoxaparin. Monitor on tele Echo: Normal left ventricular wall thickness and chamber size.? Ejection fraction is 55%.? Wall motion is normal Normal right ventricular size and systolic function Both atria are normal in size The aortic valve is sclerotic and trileaflet without stenosis or regurgitation Mitral annular calcification, trace mitral regurgitation Normal tricuspid valve with trace regurgitation.? Estimated right ventricular systolic pressure is 18 mmHg BLE doppler : No ultrasound evidence of DVT in either lower extremity. Wean O2 as tolerated. Encourage pulmonary toilet. (2) Hypoxia: Status: Acute Assessment and plan: Due to above. As above. Did well with Ex Ox (3) Hypomagnesemia: Status: Acute Assessment and plan: Replete; start standing PO magnesium. 1.9 monitor (4) Elevated lactic acid level: Status: Resolved Assessment and plan: 1.0 (5) Neck pain: Status: Acute Assessment and plan: MRI C Spine IMPRESSION: 1. Multilevel chronic degenerative disc disease as described per individual level above. 2. There is moderate central spinal canal stenosis at C5-6 with very subtle signal abnormality in the spinal cord at this level consistent with probable myelitis related to the degenerative changes 3. Multilevel facet arthropathy and multilevel Luschka joint osteophytes.? There is an element of foraminal stenosis at multiple levels as detailed above. 4.? No acute fractures evident no significant osseous lesions in cervical vertebrae. (6) Upper extremity weakness: Status: Acute Assessment and plan: Continue PT (7) Diabetes: Assessment and plan: Continue home basal insulin. Add SSI. (8) Generalized weakness: Status: Acute Assessment and plan: Continue PT (9) Discharge planning issues: Status: Acute Assessment and plan: DNR/DNI Discharge to home when medically stable discussed with Dr Perkins Subjective Subjective Patient reports: no new complaints, tolerating a regular diet, voiding w/o diffi culty, bowel movement and afebrile; denies diarrhea, nausea or vomiting Interval history since last seen: I asked patient why she stopped taking apixaban in february and she does not know why she stopped. She seemed quite confused about her med regime Exam Narrative Exam Narrative: General: Pleasant, conversant, sitting in the recliner, sleeping several times today when I checked on her, on 2L of O2 by NC, no dyspnea/tachypnea/cyanosis Neurological: A&Ox3, equal strength in BUEs, able to move BLEs. Psychiatric: Appropriate speech pattern/content; mildly forgetful, sl confused Skin: Visible skin intact HEENT: Atraumatic, normocephalic, EOMI, dry MM, clear oropharynx, no submandibular or cervical lymphadenopathy, + goiter, no JVD. Cardiovascular: RRR, no m/r/g Lungs: CTAB anteriorly Gastrointestinal: soft, nontender, nondistended Genitourinary: deferred Extremities: LLE diameter larger than the R, nonpitting, +1 bilat pedal pulses Objective Last Vital Signs Temp 36.4 C L 10/29/22 11:09 Pulse 68 10/29/22 11:09 Resp 14 10/29/22 12:03 BP 114/76 10/29/22 11:09 Pulse Ox 97 10/29/22 12:03 Laboratory Results - last 24 hr 10/28/22 10/28/22 10/28/22 14:02 14:02 14:02 WBC 9.30 RBC 4.02 Hgb 11.5 Hct 35.2 L MCV 88 MCH 28.6 MCHC 32.7 RDW 14.2 Plt Count 189 MPV 11.7 H Reticulocyte % (Auto) Immature Gran % 0.5 Neutrophils % 66.0 Lymphocytes % 22.6 Monocytes % 9.9 Eosinophils % 0.6 Basophils % 0.4 Nucleated RBC % 0.0 Absolute Neutrophils 6.13 Absolute Lymphocytes 2.10 Absolute Monocytes 0.92 H Absolute Eosinophils 0.06 Absolute Basophils 0.04 D-Dimer 2847 H VBG Lactate Sodium 134 L Potassium 4.1 Chloride 96 L Carbon Dioxide 28.0 Anion Gap 10.0 BUN 21 H Creatinine 1.1 H Est GFR (CKD-EPI 2020) 53.06 Glucose 331 H Calcium 9.0 Magnesium 1.2 L Iron TIBC Transferrin % Sat Ferritin Total Bilirubin 1.0 AST 9 L ALT 8 L Alkaline Phosphatase 69 Troponin I < 50 NT-Pro-B Natriuret Pep 2754 H Total Protein 7.6 Albumin 3.2 L Vitamin B12 Folate Procalcitonin TSH Urine Color Urine Clarity Urine pH Ur Specific [place] Urine Protein Urine Ketones Urine Blood Urine Nitrite Urine Bilirubin Urine Urobilinogen Ur Leukocyte Esterase Urine RBC Urine WBC Ur Epithelial Cells Urine Crystals Urine Bacteria Urine Casts Urine Mucus Urine Other Ur Culture Indicated? Urine Glucose COVID-19 Source SARS-CoV-2 (PCR) Add-On Test Request 10/28/22 10/28/22 10/28/22 14:38 15:50 17:12 WBC RBC Hgb Hct MCV MCH MCHC RDW Plt Count MPV Reticulocyte % (Auto) Immature Gran % Neutrophils % Lymphocytes % Monocytes % Eosinophils % Basophils % Nucleated RBC % Absolute Neutrophils Absolute Lymphocytes Absolute Monocytes Absolute Eosinophils Absolute Basophils D-Dimer VBG Lactate 2.2 H* Sodium Potassium Chloride Carbon Dioxide Anion Gap BUN Creatinine Est GFR (CKD-EPI 2020) Glucose Calcium Magnesium Iron TIBC Transferrin % Sat Ferritin Total Bilirubin AST ALT Alkaline Phosphatase Troponin I < 50 NT-Pro-B Natriuret Pep Total Protein Albumin Vitamin B12 Folate Procalcitonin TSH Urine Color Dark Yellow Urine Clarity Clear Urine pH 6.0 Ur Specific [place] >= 1.030 H Urine Protein 30 H Urine Ketones Negative Urine Blood Negative Urine Nitrite Negative Urine Bilirubin Negative Urine Urobilinogen 4.0 H Ur Leukocyte Esterase Negative Urine RBC 0-2 Urine WBC 3-5 Ur Epithelial Cells Rare Urine Crystals Negative Urine Bacteria Negative Urine Casts 0-2 Hyaline Urine Mucus Trace Urine Other Rare Transitional Ur Culture Indicated? C&S Done As Ordered Urine Glucose 100 H COVID-19 Source SARS-CoV-2 (PCR) Add-On Test Request 10/28/22 10/28/22 10/28/22 17:12 17:12 18:28 WBC RBC Hgb Hct MCV MCH MCHC RDW Plt Count MPV Reticulocyte % (Auto) Immature Gran % Neutrophils % Lymphocytes % Monocytes % Eosinophils % Basophils % Nucleated RBC % Absolute Neutrophils Absolute Lymphocytes Absolute Monocytes Absolute Eosinophils Absolute Basophils D-Dimer VBG Lactate Sodium Potassium Chloride Carbon Dioxide Anion Gap BUN Creatinine Est GFR (CKD-EPI 2020) Glucose Calcium Magnesium Iron TIBC Transferrin % Sat Ferritin Total Bilirubin AST ALT Alkaline Phosphatase Troponin I NT-Pro-B Natriuret Pep Total Protein Albumin Vitamin B12 Folate Procalcitonin < 0.1 TSH Urine Color Urine Clarity Urine pH Ur Specific [place] Urine Protein Urine Ketones Urine Blood Urine Nitrite Urine Bilirubin Urine Urobilinogen Ur Leukocyte Esterase Urine RBC Urine WBC Ur Epithelial Cells Urine Crystals Urine Bacteria Urine Casts Urine Mucus Urine Other Ur Culture Indicated? Urine Glucose COVID-19 Source Nasal/Nares SARS-CoV-2 (PCR) Negative Add-On Test Request DONE 10/28/22 10/29/22 10/29/22 23:30 00:41 06:05 WBC RBC Hgb Hct MCV MCH MCHC RDW Plt Count MPV Reticulocyte % (Auto) Immature Gran % Neutrophils % Lymphocytes % Monocytes % Eosinophils % Basophils % Nucleated RBC % Absolute Neutrophils Absolute Lymphocytes Absolute Monocytes Absolute Eosinophils Absolute Basophils D-Dimer VBG Lactate 1.0 Sodium 138 Potassium 3.8 Chloride 102 Carbon Dioxide 30.2 Anion Gap 5.8 BUN 18 Creatinine 1.0 Est GFR (CKD-EPI 2020) 59.49 Glucose 215 H Calcium 9.1 Magnesium 1.9 Iron TIBC Transferrin % Sat Ferritin Total Bilirubin AST ALT Alkaline Phosphatase Troponin I < 50 < 50 NT-Pro-B Natriuret Pep Total Protein Albumin Vitamin B12 Folate Procalcitonin TSH 1.26 Urine Color Urine Clarity Urine pH Ur Specific [place] Urine Protein Urine Ketones Urine Blood Urine Nitrite Urine Bilirubin Urine Urobilinogen Ur Leukocyte Esterase Urine RBC Urine WBC Ur Epithelial Cells Urine Crystals Urine Bacteria Urine Casts Urine Mucus Urine Other Ur Culture Indicated? Urine Glucose COVID-19 Source SARS-CoV-2 (PCR) Add-On Test Request 10/29/22 10/29/22 10/29/22 06:05 06:05 06:05 WBC 7.95 RBC 3.60 L Hgb 10.3 L Hct 31.9 L MCV 89 MCH 28.6 MCHC 32.3 RDW 14.2 Plt Count 157 MPV 11.3 H Reticulocyte % (Auto) Immature Gran % 0.3 Neutrophils % 51.3 Lymphocytes % 37.0 Monocytes % 9.3 Eosinophils % 1.6 Basophils % 0.5 Nucleated RBC % 0.0 Absolute Neutrophils 4.08 Absolute Lymphocytes 2.94 Absolute Monocytes 0.74 Absolute Eosinophils 0.13 Absolute Basophils 0.04 D-Dimer VBG Lactate 1.0 Sodium Potassium Chloride Carbon Dioxide Anion Gap BUN Creatinine Est GFR (CKD-EPI 2020) Glucose Calcium Magnesium Iron TIBC Transferrin % Sat Ferritin 144 Total Bilirubin AST ALT Alkaline Phosphatase Troponin I NT-Pro-B Natriuret Pep Total Protein Albumin Vitamin B12 275 Folate > 20.0 H Procalcitonin TSH Urine Color Urine Clarity Urine pH Ur Specific [place] Urine Protein Urine Ketones Urine Blood Urine Nitrite Urine Bilirubin Urine Urobilinogen Ur Leukocyte Esterase Urine RBC Urine WBC Ur Epithelial Cells Urine Crystals Urine Bacteria Urine Casts Urine Mucus Urine Other Ur Culture Indicated? Urine Glucose COVID-19 Source SARS-CoV-2 (PCR) Add-On Test Request 10/29/22 10/29/22 06:05 10:05 WBC RBC Hgb Hct MCV MCH MCHC RDW Plt Count MPV Reticulocyte % (Auto) 2.0 Immature Gran % Neutrophils % Lymphocytes % Monocytes % Eosinophils % Basophils % Nucleated RBC % Absolute Neutrophils Absolute Lymphocytes Absolute Monocytes Absolute Eosinophils Absolute Basophils D-Dimer VBG Lactate Sodium Potassium Chloride Carbon Dioxide Anion Gap BUN Creatinine Est GFR (CKD-EPI 2020) Glucose Calcium Magnesium Iron 17 L TIBC 226 L Transferrin % Sat 8 L Ferritin Total Bilirubin AST ALT Alkaline Phosphatase Troponin I NT-Pro-B Natriuret Pep Total Protein Albumin Vitamin B12 Folate Procalcitonin TSH Urine Color Urine Clarity Urine pH Ur Specific [place] Urine Protein Urine Ketones Urine Blood Urine Nitrite Urine Bilirubin Urine Urobilinogen Ur Leukocyte Esterase Urine RBC Urine WBC Ur Epithelial Cells Urine Crystals Urine Bacteria Urine Casts Urine Mucus Urine Other Ur Culture Indicated? Urine Glucose COVID-19 Source SARS-CoV-2 (PCR) Add-On Test Request Time Spent with Patient Time Spent with Patient: 35-49 minutes Time was spent: preparing to see the patient(eg.review tests), ordering medications,tests, procedures, referring, communicating with other health dialysis patient care technician, indepentently interpreting results, counseling the patient and care coordination
[2022-10-29] MEDS: Budesonide/Formoterol 160/4.5 6 GM 60 PUFF INH IH (19:32)
[2022-10-29] MEDS: Insulin Glargine 300 UNITS/3 ML PEN 37 UNITS SC (20:52)
[2022-10-29] MEDS: Simvastatin 40 MG TAB PO (21:03)
[2022-10-30] VITALS (10 sets, daily range): BP systolic 114–148; BP diastolic 64–84; PULSE 68–77; RESP 16–18; TEMP 36.5–37.7; O2SAT 91–99
[2022-10-30 07:18] LABS: Abs Immature Grans 0.03 10^3/uL (0.0-0.06); Absolute Basophil Count 0.04 10^3/uL (0.0-0.2); Absolute Eosinophil Count 0.16 10^3/uL (0.0-0.7); Absolute Lymphocyte Count 2.44 10^3/uL (1.2-3.4); Absolute Monocyte Count 0.68 10^3/uL (0.1-0.8); Absolute Neutrophil Count 4.46 10^3/uL (1.2-6.7); Basophils % 0.5; HCT 30.7 % (36.0-46.0); HGB 9.8 g/dL (11.2-15.7); Immature Grans % 0.4; Lymphocytes % 31.2; MCH 28.1 pg (27.0-33.0); MCHC 31.9 % (32.0-36.0); MCV 88 fL (80-95); MPV 11.4 fL (8.0-11.0); Monocytes % 8.7; Neutrophils % 57.2; Platelet Count 175 10^3/uL (130-400); RBC 3.49 10^6/uL (3.93-5.22); RDW 14.1 % (11.7-14.6); RDW-SD 45.2 fL; WBC 7.81 10^3/uL (4.4-10.8)
[2022-10-30 07:34] LABS: Anion Gap 7.7 mmol/L (3-11); BUN 19 mg/dL (7-18); CO2 28.3 mmol/L (21.0-32.0); Calcium 9.5 mg/dL (8.5-10.1); Chloride 101 mmol/L (98-107); Estimated GFR 59.49 (mL/min/1.73m2); Glucose 119 mg/dL (74-106); Magnesium 1.6 mg/dL (1.8-2.4); Potassium 4.1 mmol/L (3.5-5.1); Sodium 137 mmol/L (136-145)
[2022-10-30] MEDS: Normal Saline Flush 10 ML SYR IVP (07:46)
[2022-10-30] MEDS: Enoxaparin 100 MG/ML SYR SC (07:47)
[2022-10-30] MEDS: Magnesium Chloride 64 MG TABCR 128 MG PO (07:47)
[2022-10-30] MEDS: Omeprazole 20 MG CAPCR 40 MG PO (07:48)
[2022-10-30] MEDS: Pregabalin 100 MG CAP PO ×2 (07:49→21:03)
[2022-10-30] MEDS: DULoxetine 30 MG CAP PO ×2 (07:49→21:03)
[2022-10-30] MEDS: Budesonide/Formoterol 160/4.5 6 GM 60 PUFF INH IH ×2 (07:52→19:20)
[2022-10-30 09:24] LABS: Transferrin 180 mg/dL (201-352)
[2022-10-30 09:42] LABS: Haptoglobin 284 mg/dL (32-197)
--- NOTE | 2022-10-30 11:04 | PDOC.CMPRO ---
Date of service: 10/30/22 Time of Service: 11:04 Care Management Progress Note Progress Note Text Progress Note Text: S/O:Enedelia was sitting up on the side of her bed when CM met with her. She was much more awake today and stated that she is feeling better but is still having pain. CM asked Enedelia again if she was sure she had been taking her Eliquis and she stated that she was sure. She informed CM that she uses the pharmacy at [facility] for her prescriptions. CM contacted the pharmacy and learned that Enedelia had a prescription filed on 04/19/22 that she never picked up. It appears that she has not been taking Eliquis for at least 7-8 months. A: Enedelia is a 72 year old woman admitted on 10/28/22 with a PE P:Anticipate Enedelia will return home when medically cleared. She will follow up with her PCP and plan of care and transport with family. CM will follow and support discharge planning concerns.
[2022-10-30] MEDS: Insulin Aspart 300 UNITS/3 ML PEN SC ×3 (12:13→21:04)
[2022-10-30] MEDS: Acetaminophen 325 MG TAB PO ×2 (13:51→23:31)
--- NOTE | 2022-10-30 15:17 | PT.INTREAT ---
Date of service: 10/30/22 Time of Service: 13:12 PT Notes Visit Reasons: Hypomagnesemia,?hypoxia/PE, generalized weakness Inpatient Physical Therapy Treatment Note [facility] Date: 10/30/22 PRECAUTIONS: Fall, standard, activity as tolerated. SUBJECTIVE: Patient reports that she doesn't feel good and that she isn't sure why she is on oxygen, other than someone came in and told her it was low. Per charge nurse Namrata, patient's SaO2 dropped when she was asleep in a forward flexed position with her chin on her chest. OBJECTIVE: Supine in bed, on 2L/min supplemental O2 via a mask, agreeable to therapy. Per charge nurse Namrata, safe to ambulate without supplemental O2. ? PAIN: yes, pain reported in neck and shoulder. Requested Tylenol at end of treatment, LYNETTE Wagner made aware. VITALS: Closely monitored via telemetry by nursing staff. ??? BED MOBILITY/TRANSFERS? Rolling L/R: independent Supine-sit: independent with extra time?and elevated HOB to ~40 degrees ? Sit-supine: independent with extra time?and elevated HOB to ~40 degrees ? Sit-stand: SBA ? Stand-sit: SBA ? Bed-Chair: SBA ? Chair-bed: SBA ? Therapeutic Exercises ([id number]): Direct one-on-one instruction in therapeutic exercises to develop strength, endurance, range of motion and flexibility. ?Ambulation ? Assistive Device: FWW ? Weight bearing: full Assist: CGA to SBA ? Distance:? 200 feet ? Deviation: forward flexed posture with cervical extension. Reduced sonido. Good support through arms, good use of walker, walker kept within an appropriate distance from patient. ? Provided skilled instruction in proper exercise performance Provided skilled manual cues to facilitate proper muscle recruitment and/or form. ASSESSMENT:? Patient tolerates therapy well, returns to bed after session. PLAN: Continue global strengthening per plan of care until patient is medically cleared for discharge. TREATMENT CODE/TIME: 25 minutes beginning at 13:12
--- NOTE | 2022-10-30 16:12 | W.PM.PROGNOT ---
Date of Service Date of service: 10/30/22 Time of Service: 16:13 Assessment and Plan Assessment and plan (1) Pulmonary emboli: Status: Acute Assessment and plan: Present on admission. Acute/recurrent - stopped Apixaban in February - she does not know why she stopped taking it. She seems unclear as to whether she has been taking it or not. Currently treating with full dose enoxaparin. Monitor on tele Echo: Normal left ventricular wall thickness and chamber size.? Ejection fraction is 55%.? Wall motion is normal Normal right ventricular size and systolic function Both atria are normal in size The aortic valve is sclerotic and trileaflet without stenosis or regurgitation Mitral annular calcification, trace mitral regurgitation Normal tricuspid valve with trace regurgitation.? Estimated right ventricular systolic pressure is 18 mmHg BLE doppler : No ultrasound evidence of DVT in either lower extremity. Wean O2 as tolerated. Encourage pulmonary toilet. (2) Hypoxia: Status: Acute Assessment and plan: O2 sat 96% on room air (3) Hypomagnesemia: Status: Acute Assessment and plan: Magnesium is 1.6. table cover folder to magnesium oxide 400 mg twice daily. (4) Neck pain: Status: Acute Assessment and plan: MRI C Spine IMPRESSION: 1. Multilevel chronic degenerative disc disease as described per individual level above. 2. There is moderate central spinal canal stenosis at C5-6 with very subtle signal abnormality in the spinal cord at this level consistent with probable myelitis related to the degenerative changes 3. Multilevel facet arthropathy and multilevel Luschka joint osteophytes.? There is an element of foraminal stenosis at multiple levels as detailed above. 4.? No acute fractures evident no significant osseous lesions in cervical vertebrae. (5) Upper extremity weakness: Status: Acute Assessment and plan: Likely secondary to C5-C6 spinal stenosis. (6) Diabetes: Assessment and plan: Blood sugar 119 today. Continue present medications. (7) Discharge planning issues: Status: Acute Assessment and plan: DNR/DNI Discharge to home when medically stable (8) Neuropathy: Status: Acute Assessment and plan: Burning sensation on her feet with the leg pain. She is on the Lyrica. Continue present meds. Subjective Subjective Interval history since last seen: Patient complains of aching all over. She continues to complain of a burning sensation in her feet that go up her legs. She has had neuropathy since her chemotherapy for breast cancer in 2014. There is an unclear story of whether she has been taking her Eliquis for anticoagulation for her pulmonary emboli. She believes she has but looking into her pharmacy record there does not appear to be evidence that she has been picking it up. MRI of her C-spine showed spinal stenosis C5-[address] showed PE in the right lower lobe. Echocardiogram LVEF 55% with normal wall motion. Duplex showed no evidence of DVT. Exam Narrative Exam Narrative: On exam she is lying comfortably in bed. She is able to mobilize to the side of the bed without too much difficulty. She did not appear in any significant distress. Sitting upright her lung exam was clear to auscultation bilaterally. Heart sounds were regular though quite distant. Abdomen is quite markedly obese but overall nontender. Lower extremities the skin is intact and appears well perfused. She has no significant edema. She subjectively has a burning sensation but there is no outward sign of deformity or irregularity. Neurologically she moves all extremities well and overall strength appears to be good. Objective Last Vital Signs Temp 37.7 C H 10/30/22 14:53 Pulse 76 10/30/22 14:53 Resp 16 10/30/22 14:53 BP 121/80 10/30/22 14:53 Pulse Ox 96 10/30/22 14:53 Laboratory Results - last 24 hr 10/29/22 10/29/22 10/30/22 10:05 10:05 07:00 WBC RBC Hgb Hct MCV MCH MCHC RDW Plt Count MPV Immature Gran % Neutrophils % Lymphocytes % Monocytes % Eosinophils % Basophils % Nucleated RBC % Absolute Neutrophils Absolute Lymphocytes Absolute Monocytes Absolute Eosinophils Absolute Basophils Haptoglobin 284 H Sodium 137 Potassium 4.1 Chloride 101 Carbon Dioxide 28.3 Anion Gap 7.7 BUN 19 H Creatinine 1.0 Est GFR (CKD-EPI 2020) 59.49 Glucose 119 H Calcium 9.5 Magnesium 1.6 L Transferrin 180 L 10/30/22 07:00 WBC 7.81 RBC 3.49 L Hgb 9.8 L Hct 30.7 L MCV 88 MCH 28.1 MCHC 31.9 L RDW 14.1 Plt Count 175 MPV 11.4 H Immature Gran % 0.4 Neutrophils % 57.2 Lymphocytes % 31.2 Monocytes % 8.7 Eosinophils % 2.0 Basophils % 0.5 Nucleated RBC % 0.0 Absolute Neutrophils 4.46 Absolute Lymphocytes 2.44 Absolute Monocytes 0.68 Absolute Eosinophils 0.16 Absolute Basophils 0.04 Haptoglobin Sodium Potassium Chloride Carbon Dioxide Anion Gap BUN Creatinine Est GFR (CKD-EPI 2020) Glucose Calcium Magnesium Transferrin Time Spent with Patient Time Spent with Patient: 35-49 minutes Time was spent: preparing to see the patient(eg.review tests), obtaining and/or reviewing separately otained hiistory, ordering medications,tests, procedures, referring, communicating with other health respiratory care specialist, indepentently interpreting results and counseling the patient
[2022-10-30] MEDS: Insulin Glargine 300 UNITS/3 ML PEN 37 UNITS SC (21:03)
[2022-10-30] MEDS: Apixaban 5 MG TAB 10 MG PO (21:03)
[2022-10-30] MEDS: Magnesium Oxide 400 MG TAB PO (21:03)
[2022-10-30] MEDS: Simvastatin 40 MG TAB PO (21:03)
[2022-10-31 03:31] VITALS: BP 132/88; PULSE 70; RESP 20; TEMP 36.9; O2SAT 95
[2022-10-31 07:25] LABS: Abs Immature Grans 0.02 10^3/uL (0.0-0.06); Absolute Basophil Count 0.04 10^3/uL (0.0-0.2); Absolute Eosinophil Count 0.12 10^3/uL (0.0-0.7); Absolute Lymphocyte Count 2.34 10^3/uL (1.2-3.4); Absolute Monocyte Count 0.67 10^3/uL (0.1-0.8); Absolute Neutrophil Count 3.41 10^3/uL (1.2-6.7); Basophils % 0.6; Eosinophils % 1.8; HCT 30.6 % (36.0-46.0); HGB 9.7 g/dL (11.2-15.7); Immature Grans % 0.3; Lymphocytes % 35.5; MCH 27.8 pg (27.0-33.0); MCHC 31.7 % (32.0-36.0); MCV 88 fL (80-95); MPV 12.2 fL (8.0-11.0); Monocytes % 10.2; Neutrophils % 51.6; Platelet Count 183 10^3/uL (130-400); RBC 3.49 10^6/uL (3.93-5.22); RDW 14.1 % (11.7-14.6); RDW-SD 45.5 fL
[2022-10-31] MEDS: Budesonide/Formoterol 160/4.5 6 GM 60 PUFF INH IH (07:37)
[2022-10-31 07:43] LABS: Anion Gap 8.4 mmol/L (3-11); BUN 20 mg/dL (7-18); CO2 28.6 mmol/L (21.0-32.0); Calcium 9.8 mg/dL (8.5-10.1); Chloride 103 mmol/L (98-107); Estimated GFR 59.49 (mL/min/1.73m2); Glucose 118 mg/dL (74-106); Potassium 4.2 mmol/L (3.5-5.1); Sodium 140 mmol/L (136-145)
[2022-10-31] MEDS: Magnesium Oxide 400 MG TAB PO (08:40)
[2022-10-31] MEDS: Pregabalin 100 MG CAP PO (08:40)
[2022-10-31] MEDS: Omeprazole 20 MG CAPCR 40 MG PO (08:41)
[2022-10-31] MEDS: Apixaban 5 MG TAB 10 MG PO (08:42)
[2022-10-31 08:45] VITALS: BP 119/75; PULSE 77; RESP 16; TEMP 36.7; O2SAT 94
[2022-10-31] MEDS: DULoxetine 30 MG CAP PO (08:56)
--- NOTE | 2022-10-31 10:04 | CCONE_ITS ---
Date of service: 10/31/22 Time of Service: 10:05 Assessment and Plan Assessment and plan (1) Pulmonary emboli: Status: Acute Assessment and plan: I would recommend full dose Eliquis indefinitely unless there are contraindications. (2) A-fib: Assessment and plan: Heart rate is controlled. She should be continued on full dose Eliquis History of Present Illness History of Present Illness Chief Complaint: Evaluate rhythm, possible atrial fibrillation Narrative: Cardiac evaluation was requested in this 72-year-old woman who was admitted several days ago with recurrent pulmonary emboli. She reportedly had an unprovoked pulmonary embolism in October 2020 at which time she was started on Eliquis. She subsequently saw hematology down at [facility] in reference to duration of anticoagulation. They recommended lifelong anticoagulation but it appears that the patient stopped taking her Eliquis at some point. She was admitted here with recurrent pulmonary emboli and has been anticoagulated again While being observed in the hospital, she was on telemetry. There was concern that she might have atrial fibrillation or junctional rhythm as no P waves were observed on tracings. Heart rates were well controlled and rhythm was fairly regular. It does appear that the patient had atrial fibrillation at an ER visit in 2021. This would make a diagnosis of atrial fibrillation more likely In any event, heart rate is controlled and she is now anticoagulated. This should be continued both for the pulmonary emboli and for the atrial dysrhythmia/stroke prevention Case was discussed with Dr. Perkins Consults Consult date: 10/31/22 Requesting physician: Jorge Perkins [facility] All Active Problems (Updated 10/31/22 @ 10:08 by Natasha Cummings MD) Neuropathy (Acute) Hypoxia (Acute) Discharge planning issues (Acute) DVT prophylaxis (Acute) Upper extremity weakness (Acute) Neck pain (Acute) Hypomagnesemia (Acute) Generalized weakness (Acute) Pulmonary emboli (Acute) Lumbosacral radiculitis (Acute) Medical History (Updated 10/31/22 @ 10:08 by Natasha Cummings MD) A-fib Anxiety Asthma Breast cancer CAD (coronary artery disease) Cataract Chronic pain Colonic polyp Constipation Depression Diabetes Hemorrhoid HTN (hypertension) Hypercholesterolemia Obesity Prurigo nodularis Sigmoid diverticulosis Surgical History Abdominal hysterectomy Appendectomy Bilateral salpingectomy with oophorectomy Biopsy of breast Cholecystectomy Colonoscopy - MAC Extraction of cataract PORT PLACEMENT port removal Tonsillectomy and adenoidectomy Family History Mother No problems noted. Father Diabetes Sister No problems noted. Sister No problems noted. Sister No problems noted. Brother No problems noted. Brother No problems noted. Son No problems noted. Son No problems noted. Daughter No problems noted. Daughter No problems noted. Maternal Aunt Ovarian cancer Social History Smoking/Tobacco Use Status: Former Tobacco Use Smoking risk assessment performed?: Yes Alcohol Intake: never Drug use: Never Substance use type: does not use Housing: house Do you feel safe at home: Yes Do you feel safe in your relationship?: Yes Results Last Vital Signs Temp 36.7 C 10/31/22 08:45 Pulse 77 10/31/22 08:45 Resp 16 10/31/22 08:45 BP 119/75 10/31/22 08:45 Pulse Ox 94 10/31/22 08:45 Labs 10/31/22 06:40 10/31/22 06:40 Labs: Laboratory Results - last 24 hr 10/29/22 10/29/22 10/31/22 10:05 10:05 06:40 WBC RBC Hgb Hct MCV MCH MCHC RDW Plt Count MPV Immature Gran % Neutrophils % Lymphocytes % Monocytes % Eosinophils % Basophils % Nucleated RBC % Absolute Neutrophils Absolute Lymphocytes Absolute Monocytes Absolute Eosinophils Absolute Basophils Haptoglobin 284 H Sodium 140 Potassium 4.2 Chloride 103 Carbon Dioxide 28.6 Anion Gap 8.4 BUN 20 H Creatinine 1.0 Est GFR (CKD-EPI 2020) 59.49 Glucose 118 H Calcium 9.8 Transferrin 180 L 10/31/22 06:40 WBC 6.60 RBC 3.49 L Hgb 9.7 L Hct 30.6 L MCV 88 MCH 27.8 MCHC 31.7 L RDW 14.1 Plt Count 183 MPV 12.2 H Immature Gran % 0.3 Neutrophils % 51.6 Lymphocytes % 35.5 Monocytes % 10.2 Eosinophils % 1.8 Basophils % 0.6 Nucleated RBC % 0.0 Absolute Neutrophils 3.41 Absolute Lymphocytes 2.34 Absolute Monocytes 0.67 Absolute Eosinophils 0.12 Absolute Basophils 0.04 Haptoglobin Sodium Potassium Chloride Carbon Dioxide Anion Gap BUN Creatinine Est GFR (CKD-EPI 2020) Glucose Calcium Transferrin
[2022-10-31 10:55] VITALS: BP 118/84; PULSE 74; RESP 20; TEMP 36.5; O2SAT 95
[2022-10-31] MEDS: Insulin Aspart 300 UNITS/3 ML PEN SC (12:19)
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
--- NOTE | 2022-10-31 14:40 | PT.INTREAT ---
PT Notes Visit Reasons: Hypomagnesemia,?hypoxia/PE, generalized weakness Date: 10/31/2022 PRECAUTIONS: Fall.? Activity as tolerated.? L knee hinged knee brace on when OOB. Subjective: pt in recliner when approached for therapy this afternoon, pt denies pain, agreed to participating with therapy. Objective: Therapeutic Exercises (00932r[15mins]): Direct one-on-one instruction in therapeutic exercises to develop strength, endurance, range of motion and flexibility. ?Exercises[] ?Ambulation ? Assistive Device: [FWW]? Weight bearing: [WBAT] Assist: [SBA] ? Distance:? [200'] ? Deviation: [low step height, short step width, slow sonido] ? Provided skilled instruction in proper exercise performance Provided skilled manual cues to facilitate proper muscle recruitment and/or form: [] ASSESSMENT:? Pt tolerated activity well, pt looking forward to going home this afternoon. PLAN: Continue with balance training, global strengthening and general conditioning for improved safety, mobility and activity tolerance. TREATMENT CODE/TIME: 07565[15mins] (2:25-2:40pm)
--- NOTE | 2022-10-31 14:59 | PDOC.CMDIS ---
Date of service: 10/31/22 Time of Service: 14:59 LACE Index Scoring Tool Questions: Length of Stay (in days): 3 Was the patient admitted via the E.D.?: Yes Comorbidities: Diabetes w/o Complication and Any Tumor E.D. Visits: 1 Answers: Total Score: 10 Risk of Readmission: High Risk Care Management Discharge Plan Reason for Hospitalization: PE Discharge Plan: Enedelia will return home with no new services. She will follow up with her PCP and plan of care and transport with family. Patient/Family Education Needs: Review of discharge instructions, medications, follow up plan, limitations, activity, discuss Ask Me Three
[2022-10-31 15:39] LABS: Soluble Transferrin Receptor 4.3 mg/L (1.8 - 4.6)
--- NOTE | 2022-11-01 14:49 | INDS_ITS ---
PT Notes Visit Reasons: Hypomagnesemia,?hypoxia/PE, generalized weakness Physical Therapy Inpatient Discharge Summary Date: 11/01/22 Dates of Service: 10/29/2022 - 10/31/22 Referring Doctor: Saige Keating MD PT Orders: PT CONSULT: Limited ability Precautions: Fall. Standard. Activity as tolerated. L hinged knee orthosis on L when OOB. This document serves as a summary of care. No PT services were provided on this date. Patient Profile/Admitting Diagnsoses: Enedelia is a 72-year-old female admitted for management of pulmonary embolism, cervical spondylosis, hypoxia, hypomagnesemia, elevated lactate acid neck pain, weakness, DM, and generalized weakness. Patient was seen for 5 sessions of PT intervention over the course of 3 days. They were able to demonstrate safety and mobility sufficient to allow for safe return home. PMHX: All Active Problems?(Updated 10/28/22 @ 23:14 by Saige Keating MD) Hypoxia (Acute) Discharge planning issues (Acute) DVT prophylaxis (Acute) Upper extremity weakness (Acute) Neck pain (Acute) Hypomagnesemia (Acute) Generalized weakness (Acute) Elevated lactic acid level (Acute) Pulmonary emboli (Acute) Lumbosacral radiculitis (Acute) Medical History? Anxiety Asthma Breast cancer CAD (coronary artery disease) Cataract Chronic pain Colonic polyp Constipation Depression Diabetes Hemorrhoid HTN (hypertension) Hypercholesterolemia Obesity Prurigo nodularis Sigmoid diverticulosis Surgical History? Abdominal hysterectomy Appendectomy Bilateral salpingectomy with oophorectomy Biopsy of breast Cholecystectomy Colonoscopy - MAC Extraction of cataract PORT PLACEMENT port removal Tonsillectomy and adenoidectomy Social History/Home Situation: Lives in a private home in [place] with a ramp to enter. Has a friend/caregiver helps out with meal preparation and dishwashing. Patient is modified independent with self-care ADLs and transfers/ambulation using front-wheeled walker at baseline. Manages laundry on her own. Visited her daughter's house in [place] for the holiday when her symptoms began. Equipment Owned/DME: [facility] Subjective: none Objective: ROM: Right Upper Extremity: Shoulder Flexion up to 80 degress only actively. Shoulder abduction up to 70 degress only actively. Elbow flexion WFL. Wrist flexion WFL. Functional opening and closing of hand WFL. Left Upper Extremity: Shoulder Flexion up to 100 degress only actively. Shoulder abduction up to 90 degress only actively. Elbow flexion WFL. Wrist flexion WFL. Functional opening and closing of hand WFL. Right Lower Extremity: Hip flexion WFL. Hip abduction WFL. Knee flexion WFL. Ankle dorsiflexion WFL. Ankle plantarflexion WFL. Left Lower Extremity: Hip flexion WFL. Hip abduction WFL. Knee flexion 20 degrees to 90 degrees. Knee extension -20 degrees. Ankle dorsiflexion WFL. Ankle plantarflexion WFL. Strength: Right Upper Extremity: Shoulder flexors 3-/5. Shoulder abductors 3-/5. Elbow flexors 4-/5. Elbow extensors 4-/5. Attraction Attendant strong. Left Upper Extremity: Shoulder flexors 3-/5. Shoulder abductors 3-/5. Elbow flexors 4-/5. Elbow extensors 4-/5. Attraction Attendant strong. Right Lower Extremity: Hip flexors 3+/5. Hip abductors 3+/5. Knee flexors 4-/5. Knee extensors 3+/5. Ankle dorsiflexors 4-/5. Ankle plantarflexors 4-/5. Left Lower Extremity: Hip flexors 3+/5. Hip abductors 3+/5. Knee flexors 3-/5. Knee extensors 3-/5. Ankle dorsiflexors 4-/5. Ankle plantarflexors 4-/5. BED MOBILITY/TRANSFERS?Rolling L/R: independent ?Supine-sit: independent with extra time?and elevated HOB to ~40 degrees ?Sit-supine: independent with extra time?and elevated HOB to ~40 degrees?Sit-stand: SBA ?Stand-sit: SBA ?Bed-Chair: SBA ?Chair-bed: SBA ?Ambulation ?Assistive Device: FWW ?Weight bearing: full ?Assist: CGA to SBA ?Distance:? 200 feet?Deviation: forward flexed posture with cervical extension. Reduced sonido. Good support through arms, good use of walker, walker kept within an appropriate distance from patient.? Balance: Static Sitting: Normal Dynamic Sitting: Good Static Standing: Fair Dynamic Standing: Fair Assessment: Enedelia is a 72-year-old female admitted for management of pulmonary embolism, cervical spondylosis, hypoxia, hypomagnesemia, elevated lactate acid neck pain, weakness, DM, and generalized weakness. Patient was seen for 5 sessions of PT intervention over the course of 3 days. They were able to demonstrate safety and mobility sufficient to allow for safe return home. Goals: Goals X1 week 1. Supine-Sit independent (MET) 2. Sit-Supine independent(MET) 3. Sit-Stand independent (Progressing Toward) 4. Stand-Sit independent with FWW (Progressing Toward) 5. Bed-Chair independent with FWW(Progressing Toward) 6. Chair-Bed independent with FWW (Progressing Toward) 7. Independent gait on level surface with use of FWW for at least 300 feet without report of pain nor dyspnea (Progressing Toward) 8. Independent with home exercise program (MET) 9. Good static and dynamic standing balance/tolerance (Progressing Toward) Plan of Care/Treatment Plan: D/C from PT in acute care setting DISCHARGE RECOMMENDATIONS: [X] Home TREATMENT CODE/TIME: none Thank you for the opportunity to participate in the care of this patient. Iraida Schuster, PT, DPT [facility] [place], [place]
== END 2022-10-31 15:04 | disposition home or self-care (01) | DRG 176 ==
LOC: ER 20:46 → MS 21:21
PROVIDERS: Emergency Medicine Emergency Medical Services; Family Medicine; Internal Medicine; Nurse Practitioner Family; Admitting Provider Internal Medicine; Emergency Provider Student in an Organized Health Care Education/Training Program; PCP Family Medicine; Visit Provider Internal Medicine
DX: I26.99 Other pulmonary embolism without acute cor pulmonale (principal); E87.20 Acidosis, unspecified; J84.9 Interstitial pulmonary disease, unspecified; R09.02 Hypoxemia; E83.42 Hypomagnesemia; R29.898 Other symptoms and signs involving the musculoskeletal system; E11.42 Type 2 diabetes mellitus with diabetic polyneuropathy; R53.1 Weakness; I48.91 Unspecified atrial fibrillation; Z86.718 Personal history of other venous thrombosis and embolism; Z79.811 Long term (current) use of aromatase inhibitors; Z79.01 Long term (current) use of anticoagulants; I25.10 Atherosclerotic heart disease of native coronary artery without angina pectoris; I10 Essential (primary) hypertension; G89.29 Other chronic pain; M48.02 Spinal stenosis, cervical region; Z79.4 Long term (current) use of insulin; Z79.84 Long term (current) use of oral hypoglycemic drugs; F41.9 Anxiety disorder, unspecified; J45.909 Unspecified asthma, uncomplicated; Z85.3 Personal history of malignant neoplasm of breast; K59.00 Constipation, unspecified; F32.A Depression, unspecified; E78.00 Pure hypercholesterolemia, unspecified; K57.30 Diverticulosis of large intestine without perforation or abscess without bleeding; Z87.891 Personal history of nicotine dependence; Z66 Do not resuscitate; M54.17 Radiculopathy, lumbosacral region; T45.516A Underdosing of anticoagulants, initial encounter; M50.322 Other cervical disc degeneration at C5-C6 level
CPT/HCPCS: 36415; 71275; 76604; 76705; 76775; 80048; 80053; 84145; 87040; 87635; 93005; 93306; 93308; 94618; 94640; 96361; 96365; 96366; 96367; 97110; 99285; 70450; 71045; 72050; 72141; 81003; 81015; 82607; 82728; 82746; 83010; 83540; 83550; 83605; 83735; 83880; 84238; 84443; 84466; 84484; 85025; 85045; 85379; 87086; 93010; 93970; 94664; 94667; 94668; 94760; 99223; 99232; 99239; J0456; J0696; J1650

== ENCOUNTER → 2022-10-31 09:38 | Outpatient (BNVA) | payer MEDICARE, SELFPAY | PROVIDERS: PCP Family Medicine; Referring Provider Family Medicine; Visit Provider Internal Medicine Cardiovascular Disease ==